=== PATIENT | male | born 1960 | race Caucasian/White ===

== ENCOUNTER 2020-08-19 07:09 | Outpatient (REF) | payer OTHER, SELFPAY ==
[2020-08-19 07:41] LABS: Basophils Absolute Auto 0.1 X10*3/uL (0.0-0.2); Basophils Percent Auto 0.9 % (0-2); Eosinophils Absolute Auto 0.3 X10*3/uL (0.0-0.4); Hematocrit 33.7 % (42-52); Imm Gran Abs Auto 0.02 X10*3/uL (0.00-0.03); Imm Gran Pct Auto 0.3 % (0.0-0.4); Immature Retic Fraction 17.5 % (2.3-13.4); Lymphocytes Absolute Auto 1.7 X10*3/uL (1.2-4.9); Lymphocytes Percent Auto 23.5 % (20-40); MANUAL DIFF FLAG SCAN; Mean Corpuscular HGB Conc 29.7 g/dl (31.0-36.0); Mean Corpuscular Volume 91.1 fL (80-98); Monocytes Absolute Auto 0.7 X10*3/uL (0.1-1.2); Monocytes Percent Auto 9.4 % (2-11); Neutrophils Absolute Auto 4.3 X10*3/uL (2.0-8.3); Neutrophils Percent Auto 61.9 % (45-73); Platelet Count 330 X10*3/uL (160-400); Red Cell Distribution Width 16.2 % (11.0-16.0); Retic HGB Equivalent 25.8 pg (30.0-35.0); Reticulocyte Percent 1.2 % (0.5-1.8); Reticulocytes Absolute 0.044 X10*6/uL (0.026-0.095); SCAN SMEAR FLAG 1
[2020-08-19 08:05] LABS: Iron 31 mcg/dL (45-160); Percent Iron Saturation 7 % (15-50); Total Iron Binding Capacity 465 mcg/dL (228-428); Unsaturated Iron Binding 434 ug/dL
[2020-08-19 08:22] LABS: SLIDE REVIEW VERIFIED
[2020-08-19 08:25] LABS: Ferritin 12 ng/mL (20-250)
[2020-08-21 04:01] LABS: Folate 15.1 ng/mL (> or = 4.0); Vitamin B12 1057 pg/mL (200-900)
== END 2020-08-19 07:10 | disposition home or self-care (01) ==
LOC: HO.LAB 07:09
PROVIDERS: Visit Provider Internal Medicine
DX: D64.9 Anemia, unspecified (principal)
CPT/HCPCS: 36415; 82607; 82728; 82746; 83540; 85025; 85045

== ENCOUNTER 2021-07-10 09:29 | Outpatient (REF) | payer OTHER, SELFPAY ==
--- NOTE | ~2021-07-10 | XR_ITS ---
EXAMINATION: XR KNEE, LEFT CLINICAL INFORMATION: Sprain COMPARISON: None TECHNIQUE: Four views of the left knee. FINDINGS: Bone alignment is normal. No fracture or dislocation is seen. There is a be mild joint space narrowing at the medial femoral tibial joint. There is a small osteophyte at the patellofemoral joint. There is a small joint effusion. XR/XR knee LT 4V IMPRESSION: No fracture or dislocation. Mild degenerative changes.
[2021-07-10 11:36] LABS: MANUAL DIFF FLAG NO
[2021-07-10 11:49] LABS: Basophils Percent Auto 0.5 % (0-2); Eosinophils Absolute Auto 0.2 X10*3/uL (0.0-0.4); Hematocrit 40.7 % (42-52); Hemoglobin 13.2 g/dl (14.0-18.0); Imm Gran Abs Auto 0.02 X10*3/uL (0.00-0.03); Imm Gran Pct Auto 0.3 % (0.0-0.4); Immature Retic Fraction 18.6 % (2.3-13.4); Lymphocytes Absolute Auto 1.8 X10*3/uL (1.2-4.9); Lymphocytes Percent Auto 22.8 % (20-40); Mean Corpuscular HGB Conc 32.4 g/dl (31.0-36.0); Mean Corpuscular Hemoglobin 33.8 pg (27.0-33.0); Mean Corpuscular Volume 104.1 fL (80-98); Monocytes Absolute Auto 0.6 X10*3/uL (0.1-1.2); Monocytes Percent Auto 7.3 % (2-11); Neutrophils Absolute Auto 5.1 X10*3/uL (2.0-8.3); Neutrophils Percent Auto 66.1 % (45-73); Platelet Count 298 X10*3/uL (160-400); Red Blood Count 3.91 X10*6/uL (4.60-5.80); Red Cell Distribution Width 13.7 % (11.0-16.0); Retic HGB Equivalent 33.8 pg (30.0-35.0); Reticulocyte Percent 2.8 % (0.5-1.8); Reticulocytes Absolute 0.111 X10*6/uL (0.026-0.095); White Blood Count 7.7 X10*3/uL (4.8-10.8)
[2021-07-10 12:05] LABS: Alanine Aminotransferase 29 U/L (0-40); Albumin Level 4.2 g/dL (3.5-5.0); Alkaline Phosphatase 51 U/L (39-117); Anion Gap 13 (12-20); Aspartate Amino Transferase 29 U/L (5-37); Bilirubin Total 0.4 mg/dL (0.0-1.0); Blood Urea Nitrogen 22 mg/dL (9-16); Calcium 9.4 mg/dL (8.4-10.2); Carbon Dioxide 28 mmol/L (22-29); Chloride 103 mmol/L (96-108); Cholesterol 243 mg/dL; Estimated Glomerular Filt Rate > 60; Glucose Random 108 mg/dL (60-115); HDL Cholesterol 90 mg/dL; Iron 56 mcg/dL (45-160); LDL Cholesterol Calculated 144 mg/dl; Percent Iron Saturation 13 % (15-50); Potassium 4.7 mmol/L (3.3-5.1); Sodium 139 mmol/L (135-145); Total Iron Binding Capacity 431 mcg/dL (228-428); Total Protein 6.9 g/dL (6.5-8.0); Triglycerides 48 mg/dL; Unsaturated Iron Binding 375 ug/dL
[2021-07-10 12:26] LABS: Ferritin 25 ng/mL (20-250); Free T4 (Free Thyroxine) 0.75 ng/dL (0.71-1.85); Thyroid Stimulating Hormone 0.82 uIU/mL (0.32-4.0)
[2021-07-10 12:33] LABS: Estimated Average Glucose 103 mg/dL; Hemoglobin A1C 112.9797 umol/L; Hemoglobin A1c % 5.2 %
[2021-07-10 12:41] LABS: Folate 11.4 ng/mL (> or = 4.0); Vitamin B12 542 pg/mL (200-900)
== END 2021-07-10 09:30 | disposition home or self-care (01) ==
LOC: HO.HMGCX 09:29
PROVIDERS: PCP Internal Medicine; Visit Provider Internal Medicine
DX: S83.92XA Sprain of unspecified site of left knee, initial encounter (principal); D50.8 Other iron deficiency anemias; E78.00 Pure hypercholesterolemia, unspecified; I10 Essential (primary) hypertension
CPT/HCPCS: 36415; 73564; 80053; 80061; 82607; 82728; 82746; 83036; 83540; 84439; 84443; 85025; 85045

== ENCOUNTER 2021-08-14 05:51 | Emergency (ER) | payer OTHER, SELFPAY ==
--- NOTE | ~2021-08-14 | XR_ITS ---
EXAMINATION: XR KNEE, LEFT CLINICAL INFORMATION: Knee pain after twisting injury COMPARISON: None TECHNIQUE: Four views of the left knee. FINDINGS: Mild spurring identified. Mild medial knee joint narrowing seen. Patellofemoral and lateral knee compartments are maintained. No fracture, dislocation or joint effusion recognized. XR/XR knee LT 3V IMPRESSION: No acute bony pathology left knee. Mild degenerative changes.
[2021-08-14 05:56] VITALS: BP 146/81; PULSE 84; RESP 16; TEMP 37.2; O2SAT 100; BMI 33.9
[2021-08-14] MEDS: Ibuprofen 600 MG TABLET PO (07:04)
--- NOTE | 2021-08-14 07:05 | ED.EXTPRO ---
HPI - Extremity Problem General Chief complaint: Extremity Problem Stated complaint: L Knee Pain Time Seen by Provider: 08/14/21 06:56 Source: patient Mode of arrival: ambulatory Limitations: no limitations History of Present Illness HPI Narrative: 61-year-old male came in for evaluation of left knee pain. Patient was in hurry going to work, twisted his left knee, no fall, injury habit 5 days ago, patient was evaluated at urgent care and had x-ray reportedly was unremarkable, patient is already scheduled to see orthopedic in 3 days. Declined any others injuries. Related Data Home Medications Medication Instructions Recorded Confirmed albuterol sulfate 90 mcg/actuation 2 puff INHALATION Q4-6H PRN 08/17/20 07/24/21 aerosol inhaler (ProAir HFA) beclomethasone dipropionate 80 1 inh INHALATION BID 08/17/20 07/24/21 mcg/actuation HFA breath activated aerosol (Qvar RediHaler) cholecalciferol (vitamin D3) 1,250 1,250 mcg PO QWEEK 08/17/20 07/24/21 mcg (50,000 unit) capsule hydrocortisone 2.5 % topical cream 1 applic MD BID-QID PRN 08/17/20 07/24/21 with perineal applicator (Proctosol HC) Previous Rx's Medication Instructions Recorded ferrous sulfate 325 mg (65 mg 325 mg PO DAILY #30 tab 08/20/20 iron) tablet (Feosol) lisinopril 20 mg tablet 20 mg PO DAILY #90 tab 10/11/20 montelukast 10 mg tablet 10 mg PO BEDTIME #30 tab 11/13/20 ascorbic acid (vitamin C) 500 mg 500 mg PO DAILY #30 tab 01/18/21 tablet (Vitamin C) aspirin 81 mg chewable tablet 1 tab PO DAILY #90 tab 02/08/21 albuterol sulfate 2.5 mg INHALATION Q4-6H PRN #90 ml 03/02/21 nebulizer accessories (A.I.R.S #1 ea 03/02/21 Nebulizer Replacement) NEBULIZER #1 ea 04/09/21 sennosides 8.6 mg-docusate sodium 2 tab-cap PO BEDTIME PRN 30 Days 04/09/21 50 mg tablet (Senna-S) #60 tab diclofenac sodium 1 % topical gel 2 g TOPICAL QID 7 Days #100 g 07/24/21 (Arthritis Pain (diclofenac)) nabumetone 500 mg tablet 500 mg PO BID 7 Days #14 tab 07/24/21 ibuprofen 600 mg tablet 600 mg PO TID PRN #20 tab 08/14/21 Allergies Allergy/AdvReac Type Severity Reaction Status Date / Time No Known Allergies Allergy Verified 07/24/21 15:08 Review of Systems Review of Systems: All other systems are reviewed and are negative Constitutional: Reports as per HPI and Reports no additional constitutional complaints Eyes: Reports as per HPI and Reports no additional eye complaints Reports system reviewed and no additional complaints, except as documented Cardiovascular: Reports as per HPI and Reports no additional cardiovascular complaints Respiratory: Reports as per HPI and Reports no additional respiratory complaints Gastrointestinal: Reports as per HPI and Reports no additional gastrointestinal complaints Genitourinary: Reports no additional female genitourinary complaints Musculoskeletal: Reports no additional musculoskeletal complaints Skin/Breast: Reports system reviewed and no additional complaints, except as docu Psychiatric: Reports no additional psychiatric complaints Endocrine: Reports no additional endocrine complaints Hematologic/Lymphatic: Reports no additional hematologic/lymphatic complaints Allergic/Immunologic: Reports no additional allergic/immunologic complaints Reports system reviewed and no additional complaints, except as documented and Reports Abnormal speech present [facility] Past Medical History Medical History Asthma Brain aneurysm Hypercholesterolemia Hypertension Obesity (BMI 30-39.9) Tubular adenoma of colon Surgical History History of inguinal hernia repair Family History Family History Father Esophageal cancer Mother Diabetes Hypertension Stroke Maternal Uncle Throat cancer Social History Social History Housing: Apartment Alcohol intake: current Alcohol intake frequency: a few times a week Patient Tobacco Use Status: Current someday Tobacco user Cigarettes Per Day: 1 e-Cigarette/Vaping Use: Never Used Second Hand Smoke Exposure: Yes Advance Directives: No Advance Directives Information Provided: No service: No Current occupational status: employed Physical Exam Vital Signs: Vital Signs: Last Vital Signs Temp 99.0 F 08/14/21 05:56 Pulse 84 08/14/21 05:56 Resp 16 08/14/21 05:56 BP 146/81 H 08/14/21 05:56 Pulse Ox 100 08/14/21 05:56 Body Mass Index 33.9 Vital signs have been reviewed as appeared to be correct. Blood pressure normal. Heart rate normal. Respiration rate normal. Temperature normal. Oxygen saturation normal. Appearance: Alert. Oriented X3. No acute distress. Head: Normal external exam. Normocephalic. Atraumatic. No Panda signs noted. No raccoon eyes noted Eyes: PERRLA. EOMI. Conjunctiva and sclera normal. Eyelids normal. ENT: TM's Normal. Pharynx normal. Uvula midline. Moist mucous membranes. No trismus noted. No drooling noted. No muffled voice noted. Neck: Normal inspection. Neck supple. FROM. No adenopathy. Thyroid Normal. No meningeal signs. No neck mass noted. CVS: Normal heart rate and rhythm. Heart sound normal. No murmurs noted. Pulses normal throughout. Respiratory: No respiratory distress. Painless inspiration. Breath sounds normal. No wheezes/rales/rhonchi noted. Chest nontender. No accessory muscle usage noted or decreased air movement noted. Abdomen: Soft and nontender. Bowel sounds normal in all 4 quadrants. No distention noted. No organomegaly noted. No visible injury noted. Back: No CVA tenderness. Full range of motion noted. Skin: Skin warm and dry. Normal skin color. Normal skin turgor. No rashes/lesions/lacerations noted. Extremities: Left knee exam: No swelling, no redness, no hotness, limited range of motion due to pain, no ligamentous injury, neurovascularly intact distal and proximal to the left knee. Neuro: Oriented X 3. Cranial nerve exam: II-XII are grossly intact No motor deficit. No sensory deficit. Reflexes normal. Course Course Course Narrative: Left knee sprain. ice/wrist/knee immobilizer/NSAIDs/follow with orthopedic. MDM - Extremity (Nontraumatic) Imaging Data Left knee x-ray: Radiologist's impression: No acute pathology in the left knee. Discharge Plan Discharge Clinical Impression: Left knee sprain Patient Disposition: Home, Self-Care Instructions: Knee Sprain (ED) Prescriptions: New ibuprofen 600 mg tablet 600 mg PO TID PRN (Reason: pain) Qty: 20 RF: 0 No Action ferrous sulfate [Feosol] 325 mg (65 mg iron) tablet 325 mg PO DAILY Qty: 30 RF: 3 lisinopril 20 mg tablet 20 mg PO DAILY Qty: 90 RF: 3 montelukast 10 mg tablet 10 mg PO BEDTIME Qty: 30 RF: 6 ascorbic acid (vitamin C) [Vitamin C] 500 mg tablet 500 mg PO DAILY Qty: 30 RF: 5 aspirin 81 mg tablet,chewable 1 tab PO DAILY Qty: 90 RF: 3 hydrocortisone [Proctosol HC] 2.5 % cream with perineal applicator 1 applic MD BID-QID PRNRF: 0 cholecalciferol (vitamin D3) 1,250 mcg (50,000 unit) capsule 1,250 mcg PO QWEEK RF: 0 albuterol sulfate [ProAir HFA] 90 mcg/actuation HFA aerosol inhaler 2 puff inhalation Q4-6H PRNRF: 0 Qvar RediHaler 80 mcg/actuation HFA aerosol breath activated 1 inh inhalation BID RF: 0 (DME) NEBULIZER See Rx Instructions .Route .MEDSUPPLY Qty: 1 RF: 0 sennosides-docusate sodium [Senna-S] 8.6-50 mg tablet 2 tab-cap PO BEDTIME PRN (Reason: constipation) 30 Days Qty: 60 RF: 2 albuterol sulfate 2.5 mg /3 mL (0.083 %) solution for nebulization 2.5 mg inhalation Q4-6H PRN (Reason: bronchospasm) Qty: 90 RF: 3 (DME) A.I.R.S Nebulizer Replacement Kit See Rx Instructions .ROUTE .MEDSUPPLY Qty: 1 RF: 0 nabumetone 500 mg tablet 500 mg PO BID 7 Days Qty: 14 RF: 0 diclofenac sodium [Arthritis Pain (diclofenac)] 1 % gel 2 g topical QID 7 Days Qty: 100 RF: 0 Referrals: Bello Fregoso MD [Physician] - 2 days Stand Alone Forms: Work/School Release
== END 2021-08-14 09:24 | disposition home or self-care (01) ==
PROVIDERS: Emergency Provider Emergency Medicine; PCP Internal Medicine
DX: S83.92XA Sprain of unspecified site of left knee, initial encounter (principal); X50.1XXA Overexertion from prolonged static or awkward postures, initial encounter; Y93.89 Activity, other specified; Y92.009 Unspecified place in unspecified non-institutional (private) residence as the place of occurrence of the external cause; Y99.9 Unspecified external cause status
CPT/HCPCS: 73562; 99283

== ENCOUNTER 2021-08-17 04:59 | Outpatient (REF) | payer OTHER, SELFPAY ==
--- NOTE | ~2021-08-17 | XR_ITS ---
EXAMINATION: LEFT KNEE X-RAY CLINICAL INFORMATION: Pain COMPARISON: Previous left knee x-ray 08/14/2021 TECHNIQUE: Single sunrise view of the left knee FINDINGS: The patellofemoral joint is normal. No fracture or dislocation. XR/XR knee LT 1V IMPRESSION: Normal sunrise view of the left knee.
== END 2021-08-17 05:00 | disposition home or self-care (01) ==
LOC: HO.HOSX 04:59
PROVIDERS: Visit Provider Physician Assistant
DX: M17.12 Unilateral primary osteoarthritis, left knee (principal); S86.912A Strain of unspecified muscle(s) and tendon(s) at lower leg level, left leg, initial encounter
CPT/HCPCS: 20610; 73560; J1040

== ENCOUNTER 2021-09-28 15:00 | Outpatient (RCR) | payer OTHER, SELFPAY ==
--- NOTE | 2021-09-05 15:55 | MHC.PT.EP ---
[facility] [place] Office [place] Office [place] Office [address] Tammie De Los Santos [address] [phone] F: [phone] F: [phone] F: [phone] F: [phone] Physical Therapy Plan of Care Date of Evaluation: Date of Surgery: n/a Diagnosis: pain in L knee Assessment: Patient is a 61 year old male presenting to PT with complaints of pain in his L knee. Pt reports onset of pain began about 1 month ago due to rushing when getting out of bed and then noticing pain. He presents today with impairments in pain, ROM, knee strength, and hip strength. 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 Pt expresses behavioral services tech goal of feeling better, and is motivated to work towards this in PT. Clinical presentation today is most consistent with signs and sx associated with possible L knee sprain and pt will benefit from skilled PT to address the following problems and impairments noted upon evaluation: pain, ROM, knee strength, and hip strength. These problems limit the patient with the following functional activities: ambulation, stair negotiation, and work. The prescribed treatment plan of care is medically necessary. Co-morbidities of HTN and hx brain aneurysm were identified and taken into considerations of plan of care. Pt was educated on HEP, role of PT, prognosis, POC. Frequency and Duration: The patient will be seen 2 x week x 4 weeks Short Term Goals: Pt will demonstrate improved L knee ROM to equal B in 2 weeks. Pt will demonstrate pain at rest <2/10 in 2 weeks for improved QOL. Pt will demonstrate improved hip strength by 1/3 MMT for improved lumbopelvic stability in 2 weeks. Pt will demonstrate improved knee strength to 5/5 in 2 weeks. Group Home Goals: Pt will demonstrate ability to ambulate community distances with min to no pain in 4 weeks for improved access to the community. Pt will demonstrate ability to negotiate stairs with min to no discomfort in 4 weeks for improved access to his home. Pt will demonstrate improved LEFI score by 9 points in 4 weeks for improved LE functional mobility. Treatment Plan: Modalities to reduce pain, spasms and effusion. Manual therapy to restore motion and function. Therapeutic exercise to improve strength and flexibility. Neuromuscular re-education for posture and balance. Therapeutic activities to return to functional activities of daily living. Electronically signed by: Becca Yeung, PT, DPT, ATC Please sign and return to therapist. Thank you for your referral.
--- NOTE | 2021-10-04 15:45 | MHC.PT.DC ---
[facility] [place] Office [place] Office [place] Office [address] De Los [address] 140 [facility] [phone] F: [phone] F: [phone] F: [phone] F: [phone] Physical Therapy Discharge Report Diagnosis: pain in L knee Date of Surgery: n/a Date of Evaluation: 09/05/21 Date of Discharge: 10/04/21 Treatments to Date: 5 Cancellations to Date: 1 No Shows to Date: 1 Discharge Status: Patient Elected to Stop Discharge Summary: Pt self d/c from skilled PT. Electronically signed by: Becca Yeung, PT, DPT, ATC Please sign and return to therapist. Thank you for your referral.
== END 2021-10-04 15:45 | disposition home or self-care (01) ==
LOC: HO.PT 15:00
PROVIDERS: PCP Internal Medicine; Visit Provider Nurse Practitioner Family
DX: M25.562 Pain in left knee (principal)
CPT/HCPCS: 97110; 97112; 97161; 97530

== ENCOUNTER 2021-10-24 07:57 | Outpatient (REF) | payer OTHER, SELFPAY ==
--- NOTE | ~2021-10-24 | XR_ITS ---
EXAMINATION: PRE-MRI SCREENING CLINICAL INFORMATION: History of aneurysm coiling COMPARISON: None TECHNIQUE: 2 views of the skull. FINDINGS: There are multiple coils seen midline anterior to the suprasellar region likely from ACOM aneurysm coiling. No additional radiopaque foreign body seen. The paranasal sinuses and mastoid air cells are well aerated. No scalp soft tissue swelling. XR/XR pre mri screening IMPRESSION: Midline ACOM aneurysm coils are visualized. No additional radiopaque foreign body seen.
== END 2021-10-24 07:58 | disposition home or self-care (01) ==
LOC: HO.MRI 07:57
PROVIDERS: PCP Internal Medicine; Visit Provider Physician Assistant
DX: Z13.89 Encounter for screening for other disorder (principal)

== ENCOUNTER 2021-10-25 18:55 | Outpatient (REF) | payer OTHER, SELFPAY ==
--- NOTE | ~2021-10-25 | MR_ITS ---
EXAMINATION: MR KNEE WITHOUT CONTRAST, LEFT CLINICAL INFORMATION: Left knee pain. Osteoarthritis. COMPARISON: Most recent left knee radiographs dated 08/14/2021. TECHNIQUE: MRI of the knee without contrast was performed using routine sequences on a high-field scanner. FINDINGS: MENISCI: Medial Meniscus: Near-complete radial tear of the posterior horn/root junction measuring up to 0.9 cm in ML dimension. The meniscal body is medially extruded with degenerative intrasubstance signal. Lateral Meniscus: Inner margin fraying of the posterior horn and root. LIGAMENTS: Cruciate: Intact Collateral: Intact EXTENSOR MECHANISM: Intact ARTICULAR CARTILAGE/BONE: Patellofemoral Compartment: Superior patellar median ridge articular cartilage signal heterogeneity. Articular cartilage thinning with areas of full-thickness loss and subchondral cystic change as well as signal heterogeneity and surface irregularity involving the majority of the medial trochlea extending through the central trochlea and to the central aspect of the lateral trochlea. Marginal osteophytes. Medial Compartment: Full-thickness weightbearing medial femoral condyle and medial tibial plateau articular cartilage loss with mild underlying subchondral cystic change and marrow edema. Marginal osteophytes. Lateral Compartment: Normal JOINT FLUID AND BURSAE: Small joint effusion and small Castanon's cyst. Mild synovitis. MR/MR knee LT wo con IMPRESSION: 1. Near-complete radial tear of the medial meniscus posterior horn/root junction measuring 0.9 cm in ML dimension. Medial extrusion of the meniscal body with degenerative intrasubstance signal. 2. Inner margin fraying of the lateral meniscus posterior horn and root. 3. Moderate patellofemoral and medial compartment osteoarthritis. Small joint effusion and small Castanon's cyst with mild synovitis.
== END 2021-10-25 18:56 | disposition home or self-care (01) ==
LOC: HO.MRI 18:55
PROVIDERS: Visit Provider Physician Assistant
DX: M17.12 Unilateral primary osteoarthritis, left knee (principal); M25.562 Pain in left knee; M25.462 Effusion, left knee
CPT/HCPCS: 73721

== ENCOUNTER → 2021-11-01 14:37 | Outpatient (BNVA) | payer OTHER, SELFPAY | PROVIDERS: PCP Internal Medicine; Visit Provider Physician Assistant ==

== ENCOUNTER → 2022-01-04 11:40 | Outpatient (BNVA) | payer OTHER, SELFPAY | PROVIDERS: Visit Provider Physician Assistant | DX: Z13.89 Encounter for screening for other disorder (principal) ==

== ENCOUNTER 2022-01-09 12:54 | Day surgery (SDC) | payer OTHER, SELFPAY ==
--- NOTE | 2022-01-08 09:15 | P.CONAN_ITS ---
Documented by User: Kassi Horvath NP 01/08/22 09:16 HPI - Anesthesia Eval Consult details Narrative: 61yo M for Left Knee Arthroscopy Subchondroplasty,poss meniscus repair,poss menisectomy PMFSH Active Problems Active Problems: All Active Problems (Updated 01/04/22 @ 10:00 by Amrita Liz RN) Rectal bleeding (Acute) Anemia (Acute) Lower leg laceration with complication (Acute) Constipation (Acute) Vision changes (Acute) Somatic dysfunction of right sacroiliac joint (Acute) Rash (Acute) Sprain of left knee (Acute) Left knee pain (Acute) Patellofemoral arthritis of left knee (Acute) Strain of left knee (Acute) Lateral meniscus tear (Acute) Tear of meniscus of left knee (Acute) Osteoarthritis of left knee (Acute) Hypertension (Acute) Hypercholesterolemia (Acute) Obesity (BMI 30-39.9) (Acute) Asthma (Acute) Past Medical History Medical History Asthma Brain aneurysm History of diverticulosis Hypercholesterolemia Hypertension Obesity (BMI 30-39.9) Osteoarthritis of left knee Seasonal allergies Tubular adenoma of colon Family History Family History Father Esophageal cancer Mother Diabetes Hypertension Stroke Maternal Uncle Throat cancer Surgical History Surgical History History of inguinal hernia repair Hx of brain surgery Hx of colonoscopy Social History Social History (Updated 08/17/21 @ 08:13 by Nino Butler) Housing: Apartment Alcohol intake: current Alcohol intake frequency: a few times a week Patient Tobacco Use Status: Current someday Tobacco user Tobacco use type: Cigarette Cigarettes Per Day: 1 e-Cigarette/Vaping Use: Never Used Second Hand Smoke Exposure: Yes Use of substances other than those prescribed or required for medical reasons: No Are you DNR?: No Advance Directives: No Advance Directives Information Provided: Yes Recently lost weight without trying: No service: No Current occupational status: employed Current occupation: rt handed Meds Allergies Allergy/AdvReac Type Severity Reaction Status Date / Time No Known Allergies Allergy Verified 01/04/22 09:55 Home Medications Medication Instructions Recorded Confirmed Last Taken Type albuterol sulfate 90 mcg/actuation 2 puff INHALATION Q4-6H PRN 08/17/20 01/04/22 Unknown History aerosol inhaler (ProAir HFA) beclomethasone dipropionate 80 1 inh INHALATION BID 08/17/20 01/04/22 Unknown History mcg/actuation HFA breath activated aerosol (Qvar RediHaler) cholecalciferol (vitamin D3) 1,250 1,250 mcg PO QWEEK 08/17/20 01/04/22 Unknown History mcg (50,000 unit) capsule hydrocortisone 2.5 % topical cream 1 applic [place] BID-QID PRN 08/17/20 01/04/22 Unknown History with perineal applicator (Proctosol HC) Exam Exam Date and Time: January 08, 2022914 Pertinent Lab Results Pertinent Lab Results: Laboratory Tests 07/10/21 07/10/21 09:34 09:34 WBC 7.7 Hgb 13.2 L D Hct 40.7 L D Plt Count 298 Sodium 139 Potassium 4.7 Chloride 103 Carbon Dioxide 28 BUN 22 H Creatinine 0.88 Assessment and Plan Assessment Anesthesia Assessment: Chart Reviewed Documented by User: Balbir Mack MD 01/09/22 17:09 HPI - Anesthesia Eval Consult details Narrative: 61yo M for Left Knee Arthroscopy Subchondroplasty,poss meniscus repair,poss menisectomy brain aneurysm s/p coil and stent . Nurosurgeon on board [facility] Past Medical History Medical History Asthma Brain aneurysm History of diverticulosis Hypercholesterolemia Hypertension Obesity (BMI 30-39.9) Osteoarthritis of left knee Seasonal allergies Tubular adenoma of colon Family History Family History Father Esophageal cancer Mother Diabetes Hypertension Stroke Maternal Uncle Throat cancer Family history of problems with anesthesia: No Surgical History Surgical History History of inguinal hernia repair Hx of brain surgery Hx of colonoscopy History of Problems with Anesthesia: No Social History Social History (Updated 08/17/21 @ 08:13 by Nino Butler) Housing: Apartment Alcohol intake: current Alcohol intake frequency: a few times a week Patient Tobacco Use Status: Current someday Tobacco user Tobacco use type: Cigarette Cigarettes Per Day: 1 e-Cigarette/Vaping Use: Never Used Second Hand Smoke Exposure: Yes Use of substances other than those prescribed or required for medical reasons: No Are you DNR?: No Advance Directives: No Advance Directives Information Provided: Yes Recently lost weight without trying: No service: No Current occupational status: employed Current occupation: rt handed Meds Allergies Allergy/AdvReac Type Severity Reaction Status Date / Time No Known Allergies Allergy Verified 01/04/22 09:55 Home Medications Medication Instructions Recorded Confirmed Last Taken Type albuterol sulfate 90 mcg/actuation 2 puff INHALATION Q4-6H PRN 08/17/20 01/04/22 Unknown History aerosol inhaler (ProAir HFA) beclomethasone dipropionate 80 1 inh INHALATION BID 08/17/20 01/04/22 Unknown History mcg/actuation HFA breath activated aerosol (Qvar RediHaler) cholecalciferol (vitamin D3) 1,250 1,250 mcg PO QWEEK 08/17/20 01/04/22 Unknown History mcg (50,000 unit) capsule hydrocortisone 2.5 % topical cream 1 applic [place] BID-QID PRN 08/17/20 01/04/22 Unknown History with perineal applicator (Proctosol HC) Exam Airway Mallampati Class: II TM Dist: >3cm Neck ROM: Full Loose/Missing/Broken Teeth: Yes Heart: rrr Lungs: bl breath sounds Assessment and Plan Assessment Anesthesia Assessment: Anesthesia Plan Discussed Final Anesthetic Review Family History of Problems with Anesthesia: No History of Problems with Anesthesia: No NPO: Yes ASA Class: III Final Preanesthetic Review: Meds/Allgs Chart Reviewed, Consent Obtained/Reviewed and Anes Risks/Benef Reviewed Patient Risk: Intermediate Procedure Risk: Intermediate Anesthetic Plan Anesthetic Plan: GA Disposition: Standard PACU
[2022-01-09] VITALS (11 sets, daily range): BP systolic 145–171; BP diastolic 77–91; PULSE 73–102; RESP 15–18; TEMP 36.3–36.6; O2SAT 95–98; BMI 32.8
--- NOTE | ~2022-01-09 | FL_ITS ---
EXAMINATION: XR FLUOROSCOPY WITH IMAGES CLINICAL INFORMATION: Sub chondroplasty left knee. COMPARISON: MR left knee dated from 10/25/2021. TECHNIQUE: Fluoroscopy performed by Dr. Zenobia Monsalve. Fluoroscopy time: 0.4 minutes DAP: 0.0387 mGycm2 Images: 2 FL/FL guidance in OR FINDINGS/IMPRESSION: Intraoperative fluoroscopic images demonstrating 2 obliquely oriented surgical instruments/objects. Please refer to intraoperative report for additional details.
[2022-01-09] MEDS: Lactated Ringers 1,000 ML 100 ML IVCONT (14:31)
--- NOTE | 2022-01-09 16:10 | MHC.SHP ---
Pre-Procedural Eval Section A Date of Service: 01/09/22 The patient is an INPATIENT: No Changes since office visit: Yes Patient answered all questions; No Cold of Flu in the past 2 weeks, No New Medical Problems and No Changes in Medication The History & Physical has been completed within 30 days and I have reviewed it.: Yes Section B Chief Complaint: sprain of left knee Allergies: Allergies Allergy/AdvReac Type Severity Reaction Status Date / Time No Known Allergies Allergy Verified 01/04/22 09:55 Plan I have reviewed the history and physical and performed a pertinent physical examination on my patient. No changes have occurred unless specified.
--- NOTE | 2022-01-09 17:22 | P.BOP_ITS ---
Brief Operative Note Date of Service: 01/09/22 Pre-op diagnosis: left knee OA Left knee medial meniscus tear Left knee subchondral insufficiency fracture Post-op diagnosis: same Procedure: Internal fixation left femur knee As with partial medial meniscectomy and chondroplasty Implants: 2 ml subchondroplasty bone filler Surgeon: Bello Fregoso MD Anesthesia: GETA Was an Commercial Photographer used for this Procedure?: Yes Commercial Photographer: Kamini Lugo Estimated blood loss (mL): 10 IV fluids (mL): 1,000 Pathology: none sent Condition: stable Disposition: PACU
[2022-01-09] MEDS: fentaNYL citrate/PF 100 MCG/2 ML VIAL 25 MCG IVPUSH ×4 (17:35→18:05)
--- NOTE | 2022-01-15 15:53 | W.PM.OPN ---
Operative Note Operative Note Date of Service: 01/09/22 Narrative: [address] [address] Brief Operative Note Signed Patient: Bernardo Espitia MR#: [id number] : 1960 Acct:[id number] Pre-op diagnosis: left knee OA Left knee medial meniscus tear Left knee subchondral insufficiency fracture Post-op diagnosis: same Procedure: Internal fixation left femur knee As with partial medial meniscectomy and chondroplasty Implants: 2 ml subchondroplasty bone filler Surgeon: Bello Fregoso MD Anesthesia: GETA Was an Family Nurse Practitioner used for this Procedure?: Yes Family Nurse Practitioner: Kamini Lugo Estimated blood loss (mL): 10 IV fluids (mL): 1,000 Pathology: none sent Condition: stable Disposition: PACU Procedure in detail: Patient was brought to the operating room placed supine on the arthroscopic table and prepped and draped in standard sterile fashion. A time-out was called to identify proper site proper procedure proper surgeon and IV antibiotics per weight were administered. I began by exsanguinating the limb and insufflating tourniquet to 300 mm Hg. Then made a standard anterolateral stab incision. The knee was insufflated with water and 30 degree arthroscope was placed. There was grade 1 fibrillations of the patella and a central g4 lesion of the trochlea. The suprapatellar pouch was clean and the gutters were clean. I descended into the medial compartment where I made my medial portal under direct visualization. There was a complex medial meniscus tear. There was also scattered G 4 changes of the femoral condyle and a large G 4 lesion of the medial aspect of the medial femoral condyle. The root was intact. I used a combination of biter shaver and cautery to remove unstable portions of the meniscus. Approximately 35% of the meniscal volume was removed. Once I was satisfied with this the ACL was examined and found to be intact and the lateral compartment also was without the need for intervention. I then made a medial supra-patellar portal and inserted the insertion trochar into the MFC. Using biplanar fluro and the MRI to localize the insertion cannula into the insufficiency fracture. The Subchondroplasty was mixed on the back table and then 2 ml was injected into the MFC. There was no intra-articular extravasation. Once the subchondroplasty filler was hard all instrumentation was removed. Skin glue was used to close the portals. 25 mL of 2% Marcaine with epinephrine was injected into the joint and the surrounding soft tissues. Patient was then placed in sterile dressing extubated brought recovery room stable condition. There were no known complications.
== END 2022-01-09 18:30 | disposition home or self-care (01) ==
LOC: HO.SSS 12:54
PROVIDERS: PCP Internal Medicine; Visit Provider Orthopaedic Surgery
PROC: (CPT 29881; principal; 2022-01-09 15:00)
DX: S83.232A Complex tear of medial meniscus, current injury, left knee, initial encounter (principal); M84.452A Pathological fracture, left femur, initial encounter for fracture; M17.12 Unilateral primary osteoarthritis, left knee; X58.XXXA Exposure to other specified factors, initial encounter; Y93.9 Activity, unspecified; Y92.9 Unspecified place or not applicable; Y99.8 Other external cause status; J45.909 Unspecified asthma, uncomplicated; I10 Essential (primary) hypertension; Z86.79 Personal history of other diseases of the circulatory system; Z79.899 Other long term (current) drug therapy; F17.210 Nicotine dependence, cigarettes, uncomplicated
CPT/HCPCS: 29881; 27599; C1713; J0171; J0690; J1100; J1170; J1885; J2250; J2405; J3010

== ENCOUNTER → 2022-01-14 08:54 | Outpatient (BNVA) | payer OTHER, SELFPAY | PROVIDERS: Visit Provider Physician Assistant | DX: M17.12 Unilateral primary osteoarthritis, left knee (principal); Z47.89 Encounter for other orthopedic aftercare ==

== ENCOUNTER → 2022-02-11 08:29 | Outpatient (BNVA) | payer OTHER, SELFPAY | PROVIDERS: Visit Provider Physician Assistant | DX: Z13.89 Encounter for screening for other disorder (principal) ==

== ENCOUNTER → 2022-03-08 12:19 | Outpatient (BNVA) | payer OTHER, SELFPAY | PROVIDERS: Visit Provider Physician Assistant | DX: M17.12 Unilateral primary osteoarthritis, left knee (principal) ==

== ENCOUNTER 2022-03-12 09:00 | Outpatient (RCR) | payer OTHER, SELFPAY ==
--- NOTE | 2022-01-14 15:44 | MHC.PT.EP ---
[facility] [place] Office [place] Office [place] Office [address] Tammie De Los Santos [address] [phone] F: [phone] F: [phone] F: [phone] F: [phone] Physical Therapy Plan of Care Date of Evaluation: Date of Surgery: 01/09/22 Diagnosis: 01/09/22 LEFT KNEE As with partial medial meniscectomy and chondroplasty Assessment: 61 YO MALE REF TO PT S/P LEFT PARTIAL MEDIAL MENISCECTOMY AND CHONDROPLASTY ON 01/09/22. 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 HE RESIDES ALONE AND HAS BEEN CLEARED FOR WBAT LEFT W A CANE. Pt HAS DECR ROM IN LEFT KNEE, DECR FLEXIB IN LEFT HIP, ALTERED GAIT MECH, POST-OP SWELLING AND INCISIONAL HEALING, AND GENERAL THROBBING PAIN IN LEFT KNEE. HE HAS COMPENSATORY UEs OVERUSE W TRANSFERS AND W GAIT HE HAS DECR STANCE PHASE Lt LE AND POSTURES INTO HIP ER. Pt IS MOTIVATED FOR PT AND RTW- HE IS A VERY GOOD PT CANDIDATE. Frequency and Duration: The patient will be seen 2 x WK x 8 WKS Short Term Goals: *Pt'S LEFT KNEE PAIN DECR TO 2-3/10 AND EDEMA RESOLVED IN 2 WKS *Pt IMPROVE ROM Lt KNEE , PER PROTOCOL, GRAD TO 0*-125* BY 4 WKS *Pt DEMON WFL GAIT MECH ON LEVEL GROUND AND STAIRS IN 4 WKS Halfway Goals: Pt INDEP W HEP PROGRESSION AND SELF-SX MGMT STRATEGIES IN 8 WKS Pt RESUME REG ADLs , WORK SIMUL ALLOWED BY PROTOCOL , AND, EVIDENT W IMPROVED LEFI SCORE BY 10-15 POINTS (AT EVAL 17/80 ) IN 8 WKS Pt INCR LEFT LE AND LUMBOPELVIC STRENGTH BY 1 GRADE IN 8 WKS Treatment Plan: Modalities to reduce pain, spasms and effusion. Manual therapy to restore motion and function. Therapeutic exercise to improve strength and flexibility. Neuromuscular re-education for posture and balance. Therapeutic activities to return to functional activities of daily living. Electronically signed by: Cinthya Bryant PT Please sign and return to therapist. Thank you for your referral.
--- NOTE | 2022-04-03 10:06 | MHC.PT.DC ---
[facility] [place] Office [place] Office [place] Office [address] Tammie De Los Santos [address] [phone] F: [phone] F: [phone] F: [phone] F: [phone] Physical Therapy Discharge Report Diagnosis: 01/09/22 LEFT KNEE As with partial medial meniscectomy and chondroplasty Date of Surgery: 01/09/22 Date of Evaluation: 01/14/22 Date of Discharge: 04/03/22 Treatments to Date: 11 Cancellations to Date: 2 No Shows to Date: 3 Discharge Status: Improved Function Independent with HEP Patient Elected to Stop Visit Non-compliance Discharge Summary: Pt WAS PROGRESSING IN PT, HE HAD EXACERBATED HIS KNEE, BUT IN PT WE WERE ABLE TO EASE IRRITATION AND REFOCUS HEP. Pt HAS A PROGRESSIVE HEP, HIS LEFT KNEE AROM IS WFL, GAIT MECH MORE EFFICIENT ON LEVEL AND STAIRS. PT HAS NOT ATTENDED LAST FEW SCED PT APPTS DESPITE REMINDERS, THEREFORE, A FINAL REASSESSMENT WAS NOT PERFORMED. Electronically signed by: Cinthya Bryant,PT Please sign and return to therapist. Thank you for your referral.
== END 2022-04-03 10:07 | disposition home or self-care (01) ==
LOC: HO.PT 09:00
PROVIDERS: Visit Provider Physician Assistant
DX: M25.562 Pain in left knee (principal)
CPT/HCPCS: 97014; 97110; 97112; 97140; 97162; 97530

== ENCOUNTER → 2022-07-22 14:44 | Outpatient (BNVA) | payer OTHER, SELFPAY | PROVIDERS: Visit Provider Orthopaedic Surgery | DX: M17.12 Unilateral primary osteoarthritis, left knee (principal); R73.02 Impaired glucose tolerance (oral) | CPT/HCPCS: 20610 ==

== ENCOUNTER → 2022-10-28 14:48 | Outpatient (BNVA) | payer OTHER, SELFPAY | PROVIDERS: Visit Provider Orthopaedic Surgery | DX: Z13.89 Encounter for screening for other disorder (principal) ==

== ENCOUNTER 2023-07-20 19:17 | Inpatient (IN) | payer OTHER, SELFPAY ==
--- NOTE | ~2023-07-20 | CT_ITS ---
EXAMINATION: CT ABDOMEN AND PELVIS WITHOUT AND WITH CONTRAST CLINICAL INFORMATION: GI bleed COMPARISON: None. TECHNIQUE: Multidetector volumetric CT imaging of the abdomen, and pelvis was performed before and after the administration of 100 mL of Omnipaque 300 intravenous contrast without immediate adverse reactions. Axial MIP volume rendering provided. Sagittal and coronal reformatted images were obtained. This CT examination was performed using dose optimization techniques as appropriate, variously including the following: *Automated exposure control *Adjustment of mA and/or kV according to patient size (this includes techniques or standardized protocols for targeted exams where dose is matched to indication/reason for exam; i.e. extremities or head) *Use of iterative reconstruction technique DLP: 1654 mGy-cm. FINDINGS: LUNGS BASES: The lungs are clear with no evidence of inflammation or nodules. LIVER, GALLBLADDER, AND BILIARY TREE: The liver is normal in size, shape, and attenuation. No focal hepatic lesion or biliary ductal dilatation is present. Dependent intraluminal gallbladder calculus without wall thickening or pericholecystic fluid. PANCREAS: Unremarkable. SPLEEN: Unremarkable. 0.3 cm splenule. ADRENAL GLANDS: Unremarkable. KIDNEYS AND URETERS: Subcentimeter hypodense focus along the right renal interpolar region, too small to characterize though statistically representing a cyst. The kidneys are normal in size, shape, and attenuation. No hydronephrosis, hydroureter, or calculi seen. No perinephric stranding. BLADDER: Unremarkable. GASTROINTESTINAL TRACT: Respiratory motion artifact slightly limits evaluation of the bowel. Colonic diverticulosis without acute diverticulitis. The small and large bowel are unremarkable. The appendix is unremarkable. ABDOMINAL WALL: Small fat filled bilateral inguinal hernias. LYMPH NODES: Normal. VASCULAR: No evidence of contrast extravasation to suggest active hemorrhage. Abdominal aorta is nonaneurysmal. Atherosclerotic calcifications abdominal aorta and its branches. PELVIC VISCERA: Prostate is enlarged measuring 4.9 x 4.3 cm with mass effect upon the urinary bladder base. OSSEOUS STRUCTURES: Multilevel degenerative changes of the thoracolumbar spine. Prominent degenerative arthropathy of the right sacroiliac joint. CT/CT gi bleed abd pel wo/w IVcon IMPRESSION: 1. No evidence of contrast extravasation to suggest active hemorrhage though evaluation is slightly limited secondary to respiratory motion artifact on the gastrointestinal tract during arterial phase. 2. Cholelithiasis without acute cholecystitis. 3. Subcentimeter hypodense focus along the right renal interpolar region, too small to characterize though statistically representing a cyst. 4. Colonic diverticulosis without acute diverticulitis. 5. Small fat filled bilateral inguinal hernias. 6. Prostate is enlarged measuring 4.9 x 4.3 cm with mass effect upon the urinary bladder base.
--- NOTE | ~2023-07-20 | NM_ITS ---
RADIONUCLIDE GASTROINTESTINAL BLEEDING STUDY CLINICAL INDICATION: Rectal bleeding, anemia, question GI bleed. PROCEDURE: Following the bolus intravenous administration of 25 millicuries technetium 99m labeled autologous red blood cells, rapid sequence dynamic gamma scintillation camera images were obtained over the abdomen and pelvis for an initial observation interval of 2 minutes. Subsequent sequential static images were then obtained up to 60 minutes post injection. FINDINGS: Initial rapid sequence flow images there is visualization of activity neck curvilinear distribution laterally in the left midabdomen that visualizes simultaneously with visualization of the aorta and common iliac arteries and persists through the flow study. Subsequent sequential static images continue to show this a curvilinear focus but this gradually decreases in intensity but does not change significantly in distribution. No foci of changing activity are visualized throughout the study. The CT scan dated 07/20/2023 shows a loop of small bowel that corresponds in shape and position to the region in the lateral left mid abdomen that showed some increased flow. NM/NM GI bleeding IMPRESSION: No gastrointestinal hemorrhage is identified. A hyperemic loop of small bowel is likely responsible for activity initially visualized during the flow images which persisted but gradually faded without changing distribution throughout the remainder of the study.
--- NOTE | 2023-07-20 19:24 | ECG_ITS ---
Test Reason : WEAKNESS Blood Pressure : / mmHG Vent. Rate : 077 BPM Atrial Rate : 077 BPM P-R Int : 160 ms QRS Dur : 074 ms QT Int : 380 ms P-R-T Axes : 011 -01 036 degrees QTc Int : 430 ms Normal sinus rhythm Nonspecific T wave abnormality Abnormal ECG When compared with ECG of 21-JUN-2020 20:22, No significant change was found Referred By: Devorah Keating Electronically Signed By:NEEL MARX
[2023-07-20 19:28] VITALS: BP 108/68; BP 98/58; PULSE 87; PULSE 93; RESP 18; TEMP 36.4; O2SAT 18; O2SAT 98; BMI 32.0
--- NOTE | 2023-07-20 19:32 | ED_ITS ---
HPI - GI Bleed General Chief complaint: Weakness Stated complaint: bleeding from rectal area after diarrhea, weak Source: patient and old records reviewed Mode of arrival: EMS Limitations: no limitations History of Present Illness HPI Narrative: 62 yo male with PMH of HTN, HLD, brain aneurysm s/p coil, prior lower GIB 4 years ago at [facility] that required cauterization here with c/o brb with clots in toilet starting around 430/5pm tonight. He feels weak and dizzy and cannot walk. He has no pain. He takes only aspirin no thinners. complaint: gross hematochezia Onset (ago): hour(s) (430pm) Severity: moderate Relieving factors: none Exacerbating factors: bowel movement Context: history of GI bleed Associated symptoms: malaise and weakness Treatments Prior to Arrival: none Related Data Home Medications Medication Instructions Recorded Confirmed albuterol sulfate 90 mcg/actuation 2 puff inhalation Q4-6H PRN 08/17/20 01/04/22 aerosol inhaler (ProAir HFA) Wheezing beclomethasone dipropionate 80 1 inh inhalation BID 08/17/20 01/04/22 mcg/actuation HFA breath activated aerosol (Qvar RediHaler) cholecalciferol (vitamin D3) 1,250 1,250 mcg PO QWEEK 08/17/20 01/04/22 mcg (50,000 unit) capsule hydrocortisone 2.5 % topical cream 1 applic AK BID-QID PRN as directed 08/17/20 01/04/22 with perineal applicator (Proctosol HC) Previous Rx's Medication Instructions Recorded ferrous sulfate 325 mg (65 mg 325 mg PO DAILY #30 tabs 08/20/20 iron) tablet (Feosol) ascorbic acid (vitamin C) 500 mg 500 mg PO DAILY #30 tabs 01/18/21 tablet (Vitamin C) albuterol sulfate 2.5 mg/3 mL 2.5 mg (3 mL) inhalation Q4-6H PRN 03/02/21 (0.083 %) solution for nebulization bronchospasm #90 mL nebulizer accessories (A.I.R.S #1 ea 03/02/21 Nebulizer Replacement kit) NEBULIZER #1 ea 04/09/21 sennosides 8.6 mg-docusate sodium 2 tab-cap (2 x 8.6-50 mg) PO 04/09/21 50 mg tablet (Senna-S) BEDTIME PRN constipation 30 days #60 tabs diclofenac sodium 1 % topical gel 2 g topical QID 7 days #100 grams 07/24/21 (Arthritis Pain (diclofenac)) [facility] Knee brace #1 ea 11/05/21 oxycodone-acetaminophen 5 mg-325 1 tab PO Q8H PRN pain (scale score 01/27/22 mg tablet (Percocet) 4-6) 7 days #21 tabs meloxicam 15 mg tablet 15 mg PO DAILY 30 days #30 tabs 02/11/22 aspirin 81 mg chewable tablet 1 tab PO DAILY #90 tabs 09/05/22 montelukast 10 mg tablet 10 mg PO BEDTIME #90 tabs 09/05/22 lisinopril 20 mg tablet 20 mg PO DAILY #90 tabs 02/14/23 Allergies Allergy/AdvReac Type Severity Reaction Status Date / Time No Known Allergies Allergy Verified 07/20/23 19:33 Review of Systems 2 Review of Systems: Constitutional : No Fever, No Chills, No Fatigue ENT/Mouth : No sore throat, No Rhinorrhea Eyes: No Eye Pain, No Swelling, No Redness Cardiovascular : No Chest Pain, No SOB, No Dyspnea on Exertion Respiratory : No Cough, No Sputum Gastrointestinal : No Nausea, No Vomiting, No Diarrhea, No abdominal Pain, pos hematochezia Genitourinary : No Dysuria, No Urinary Frequency, No Hematuria, Musculoskeletal : No joint pain, No Myalgias, No Joint Swelling Skin : No Skin Lesions, No rash Neuro : No Weakness, No Numbness, pos Dizziness, no Headache Psych : No Anxiety/Panic, No Depression Heme/Lymph: No Bruising, No Bleeding,No Lymphadenopathy Endocrine : No Polyuria, No Polydipsia All other systems reviewed and are negative [facility] Past Medical History Attestation statement: The following information was validated with the patient. Source: old records reviewed Medical History History of diverticulosis Seasonal allergies Osteoarthritis of left knee Tubular adenoma of colon Hypertension Hypercholesterolemia Obesity (BMI 30-39.9) Brain aneurysm Asthma Surgical History History of knee surgery Hx of brain surgery Hx of colonoscopy History of inguinal hernia repair Family History Family History Father Esophageal cancer Mother Diabetes Hypertension Stroke Maternal Uncle Throat cancer Social History Social History Housing: Apartment Alcohol intake: current Alcohol intake frequency: a few times a month Patient Tobacco Use Status: Current someday Tobacco user Tobacco use type: Cigarette Cigarettes Per Day: 1 Smoked in Last 30 Days: Yes e-Cigarette/Vaping Use: Never Used Second Hand Smoke Exposure: Yes Use of substances other than those prescribed or required for medical reasons: No Advance Directives: No Advance Directives Information Provided: No service: No Current occupational status: employed Current occupation: rt handed Cognitive needs: No Hearing needs: No Vision needs: No Physical Exam 2 Vital Signs: Vital Signs: Last Vital Signs Temp 97.6 F 07/20/23 19:28 Pulse 78 07/20/23 22:08 Resp 18 07/20/23 22:08 BP 109/56 L 07/20/23 22:08 Pulse Ox 97 07/20/23 22:08 O2 Del Method Room Air 07/20/23 22:08 BMI result Body Mass Index 32.0 Appearance: Alert. Oriented X3. No acute distress. Eyes: Pupils equal, round and reactive to light. ENT: Pharynx normal. Neck: Normal inspection. Neck supple. CVS: Normal heart rate and rhythm. Pulses normal. Respiratory: No respiratory distress. Breath sounds normal. Abdomen: Soft and nontender. Rectal: brb noted on my finger on exam Skin: Skin warm and dry. pale skin color. Normal skin turgor. Extremities: No lower extremity edema. No calf ttp Neuro: Oriented X 3. No motor deficit. No sensory deficit. Course Course Course Narrative: lactic acidosis due to GIB and not infection or severe sepsis Reevaluation(s) Reevaluation #1: COLONOSCOPY JNE 2016 CLOTTED BLOOD IN SIGMOID COLON, EROSIONS IN TERMINAL ILEUM Medications Administered Discontinued Medications Generic Name Dose Route Start Last Admin Trade Name Freq PRN Reason Stop Dose Admin Sodium Chloride 1,000 mls @ 999 mls/hr 07/20/23 19:30 07/20/23 20:32 Ns IVCONT 07/20/23 20:30 Infused .Q1H1M EMMA Infusion Iohexol 100 ml 07/20/23 21:17 07/20/23 21:17 Iohexol 350 Mg/Ml 100 Ml Infus..Btl IV 07/20/23 21:18 80 ml ONCE ONE Administration Medical Decision Making Medical Decision Making [facility] Narrative: 62 yo male with PMH of HTN, HLD, brain aneurysm s/p coil, prior lower GIB 4 years ago at [facility] that required cauterization here with c/o brb per rectum with clots since 430pm now pale and dizzy not on thinners at this time two IV lines, labs, type and screen - close observation of BP and transfusion PRN - he agrees. CT scan with GI bleed protocol. Differential Diagnosis Differential Diagnoses: The differential diagnosis associated with the presentation includes acute rectal bleed Admission/Observation Consideration of admission/observation: Escalation of care including admission/observation considered admit given drop in hemoglobin Consult Healthcare Provider Management of the patient was discussed with: Hospitalist (agrees to admit) and Various Exceptionalities Teacher NPO and ice chips no prep needed per Dr. Wu Lab Data [facility] Lab Attestation statement: I reviewed the patient's lab results. 07/21/23 00:08 07/20/23 19:40 Labs: Lab Results 07/20/23 07/20/23 07/20/23 Range/Units 19:40 20:23 22:33 WBC 9.9 (4.8-10.8) X10*3/uL RBC 4.02 L (4.60-5.80) X10*6/uL Hgb 13.9 L (14.0-18.0) g/dl Hct 42.0 (42.0-52.0) % MCV 104.5 H (80.0-98.0) fL MCH 34.6 H (27.0-33.0) pg MCHC 33.1 (31.0-36.0) g/dl RDW 13.2 (11.0-16.0) % Plt Count 322 (160-400) X10*3/uL MPV 9.2 L (9.4-12.4) fL Immature Gran % (Auto) 0.8 H (0.0-0.4) % Neut % (Auto) 67.6 (45-73) % Lymph % (Auto) 21.6 (20-40) % Quay % (Auto) 5.5 (2-11) % Eos % (Auto) 3.9 (0-4) % Baso % (Auto) 0.6 (0-2) % Lymph # (Auto) 2.1 (1.2-4.9) X10*3/uL Quay # (Auto) 0.6 (0.1-1.2) X10*3/uL Eos # (Auto) 0.4 (0.0-0.4) X10*3/uL Baso # (Auto) 0.1 (0.0-0.2) X10*3/uL Abs Immat Gran (auto) 0.08 H (0.00-0.03) X10*3/uL Absolute Neuts (auto) 6.7 (2.0-8.3) x10*3/uL Absolute Nucleated RBC 0.000 (0.0-0.012) X10*3/uL Nucleated RBC % (auto) 0.0 (0.0-0.2) /100WBC PT 11.2 (11.1-13.3) SEC INR 0.9 (0.9-1.1) Sodium 141 (135-145) mmol/L Potassium 4.3 (3.3-5.1) mmol/L Chloride 106 (96-108) mmol/L Carbon Dioxide 22 (22-29) mmol/L Anion Gap 17 (12-20) BUN 13 (9-16) mg/dL Creatinine 1.44 H (0.5-1.4) mg/dL Estim Creat Clear Calc 57.3 Estimated GFR 50 Random Glucose 137 H (60-115) mg/dL Lactic Acid 3.7 H* (0.5-2.0) mmol/L Lactic Acid F/U @ 2Hr 2.3 H* (0.5-2.0) mmol/L Calcium 9.5 (8.4-10.2) mg/dL Magnesium 2.1 (1.6-2.6) mg/dL Total Bilirubin 0.2 (0.0-1.0) mg/dL Direct Bilirubin < 0.2 (0.0-0.5) mg/dL AST 26 (5-37) U/L ALT 16 (0-40) U/L Alkaline Phosphatase 44 (39-117) U/L Total Protein 7.0 (6.5-8.0) g/dL Albumin 4.1 (3.5-5.0) g/dL Blood Type O Positive Antibody Screen NEGATIVE 07/21/23 Range/Units 00:08 WBC 11.5 H (4.8-10.8) X10*3/uL RBC 3.31 L (4.60-5.80) X10*6/uL Hgb 11.5 L (14.0-18.0) g/dl Hct 33.8 L (42.0-52.0) % MCV 102.1 H (80.0-98.0) fL MCH 34.7 H (27.0-33.0) pg MCHC 34.0 (31.0-36.0) g/dl RDW 13.4 (11.0-16.0) % Plt Count 253 (160-400) X10*3/uL MPV 9.1 L (9.4-12.4) fL Immature Gran % (Auto) (0.0-0.4) % Neut % (Auto) (45-73) % Lymph % (Auto) (20-40) % Quay % (Auto) (2-11) % Eos % (Auto) (0-4) % Baso % (Auto) (0-2) % Lymph # (Auto) (1.2-4.9) X10*3/uL Quay # (Auto) (0.1-1.2) X10*3/uL Eos # (Auto) (0.0-0.4) X10*3/uL Baso # (Auto) (0.0-0.2) X10*3/uL Abs Immat Gran (auto) (0.00-0.03) X10*3/uL Absolute Neuts (auto) (2.0-8.3) x10*3/uL Absolute Nucleated RBC 0.000 (0.0-0.012) X10*3/uL Nucleated RBC % (auto) 0.0 (0.0-0.2) /100WBC PT (11.1-13.3) SEC INR (0.9-1.1) Sodium (135-145) mmol/L Potassium (3.3-5.1) mmol/L Chloride (96-108) mmol/L Carbon Dioxide (22-29) mmol/L Anion Gap (12-20) BUN (9-16) mg/dL Creatinine (0.5-1.4) mg/dL Estim Creat Clear Calc Estimated GFR Random Glucose (60-115) mg/dL Lactic Acid (0.5-2.0) mmol/L Lactic Acid F/U @ 2Hr (0.5-2.0) mmol/L Calcium (8.4-10.2) mg/dL Magnesium (1.6-2.6) mg/dL Total Bilirubin (0.0-1.0) mg/dL Direct Bilirubin (0.0-0.5) mg/dL AST (5-37) U/L ALT (0-40) U/L Alkaline Phosphatase (39-117) U/L Total Protein (6.5-8.0) g/dL Albumin (3.5-5.0) g/dL Blood Type Antibody Screen Independent Interpretation I performed an independent interpretation of an: EKG and CT Scan (no active GIB) Interpretation: Rate: 77 Rhythm: NSR [place]: normal Normal P waves. Normal DORIS. Normal QRS complex. ST T wave : normal no SARAH q waves inf leads qTC: normal prior studies: no acute ischemia The study has been interpreted contemporaneously by me. . Radiology Impression Discussion of test interpretation with radiology: I have reviewed the radiologist's reading. Independent Historian Clinical information obtained from an independent historian. History obtained from or confirmed by: EMS External Record Review External record reviewed: Inpatient record and Outpatient record Discharge Plan Discharge Clinical Impression: Rectal bleeding, Acidosis, lactic Patient Disposition: Admitted As Inpatient
[2023-07-20] MEDS: 0.9 % Sodium Chloride 1,000 ML 999 ML IVCONT (19:36)
[2023-07-20 19:50] LABS: MANUAL DIFF FLAG NO
[2023-07-20 19:52] LABS: Basophils Absolute Auto 0.1 X10*3/uL (0.0-0.2); Basophils Percent Auto 0.6 % (0-2); Eosinophils Absolute Auto 0.4 X10*3/uL (0.0-0.4); Eosinophils Percent Auto 3.9 % (0-4); Hemoglobin 13.9 g/dl (14.0-18.0); Imm Gran Abs Auto 0.08 X10*3/uL (0.00-0.03); Imm Gran Pct Auto 0.8 % (0.0-0.4); Lymphocytes Absolute Auto 2.1 X10*3/uL (1.2-4.9); Lymphocytes Percent Auto 21.6 % (20-40); Mean Corpuscular HGB Conc 33.1 g/dl (31.0-36.0); Mean Corpuscular Hemoglobin 34.6 pg (27.0-33.0); Mean Corpuscular Volume 104.5 fL (80.0-98.0); Mean Platelet Volume 9.2 fL (9.4-12.4); Monocytes Absolute Auto 0.6 X10*3/uL (0.1-1.2); Monocytes Percent Auto 5.5 % (2-11); Neutrophils Absolute Auto 6.7 x10*3/uL (2.0-8.3); Neutrophils Percent Auto 67.6 % (45-73); Platelet Count 322 X10*3/uL (160-400); Red Blood Count 4.02 X10*6/uL (4.60-5.80); Red Cell Distribution Width 13.2 % (11.0-16.0); White Blood Count 9.9 X10*3/uL (4.8-10.8)
--- NOTE | 2023-07-20 19:54 | PC.NURSE ---
assumed care of pt. pt BIBA from home for weakness and bloody stool since 0. pt a&ox4, respirations even and unlabored VS WNL. abdomen soft non tender to touch. pt denies pain at this time. IVs established. labs drawn. requested pt to call for assistance out of bed.
[2023-07-20 20:04] LABS: Lactic Acid 3.7 mmol/L (0.5-2.0)
[2023-07-20 20:05] LABS: INTERNATIONAL NORM RATIO 0.9 (0.9-1.1); Prothrombin Time 11.2 SEC (11.1-13.3)
[2023-07-20 20:08] LABS: Alanine Aminotransferase 16 U/L (0-40); Albumin Level 4.1 g/dL (3.5-5.0); Alkaline Phosphatase 44 U/L (39-117); Anion Gap 17 (12-20); Aspartate Amino Transferase 26 U/L (5-37); Bilirubin Direct < 0.2 mg/dL (0.0-0.5); Bilirubin Total 0.2 mg/dL (0.0-1.0); Blood Urea Nitrogen 13 mg/dL (9-16); Calcium 9.5 mg/dL (8.4-10.2); Carbon Dioxide 22 mmol/L (22-29); Chloride 106 mmol/L (96-108); Creatinine Clr Calc Pharmacy 57.3; Estimated Glomerular Filt Rate 50; Glucose Random 137 mg/dL (60-115); Magnesium 2.1 mg/dL (1.6-2.6); Potassium 4.3 mmol/L (3.3-5.1); Sodium 141 mmol/L (135-145)
[2023-07-20 20:33] VITALS: BP 119/54; PULSE 79; RESP 18; O2SAT 98
--- OUTSIDE RECORDS SUMMARY | 2023-07-20 21:10 | XMS_ITS | Continuity of Care Document ---
Author Name Unknown Organization [facility] Address [address] [place] [id number] Care Team Providers Care Acupressure Therapist Name Role Phone Gabbi Washington MD Primary Care Physician [phone] Encounter [facility] Date(s): 08/12/20 - 08/12/[address] [address]- [facility] Encounter Diagnosis Leg laceration(Final) - 08/12/20 Discharge Disposition: A-D/C Home Attending Physician: Iron Gonzalez MD Admitting Physician: Iron Gonzalez MD Referring Physician: Not on Staff, Referring MD Allergies, Adverse Reactions, Alerts No Known Medication Allergies Immunizations Given and Recorded Vaccine Date Status Refusal Reason Tetanus Immune Globulin 08/12/20 Given tetanus/diphtheria/pertussis, acel(Tdap) 08/12/20 Given pneumococcal 23-valent vaccine 04/06/16 Given Medications albuterol CFC free 90 mcg/inh inhalation aerosol 1 puffs, Inhalation, 4 times a day, PRN for wheezing, # 18 Gm, 0 Refills, Maintenance, 11/29/15 12:18:51, Aerosol Start Date: 11/29/15 Status: Ordered Aspirin Enteric Coated 81 mg oral delayed release tablet 1 tablet = 81 mg, By Mouth, Daily, # 90 tablet, 3 Refills, Maintenance, 08/02/16 15:25:34 Start Date: 08/02/16 Status: Ordered Ativan 1 mg oral tablet 1 tablet = 1 mg, By Mouth, Daily, PRN as needed for anxiety, take 1 tablet 1hr before exam then take 1 tablet 20 minutes before exam, # 5 tablet, 0 Refills, Maintenance, 01/13/18 10:18:29 EDT Start Date: 01/13/18 Status: Ordered Hemoglobin and hematocrit Hemoglobin and hematocrit, See Instructions, # 1 each, Refills 0, Tot. Refills 0, Maintenance, Please draw hemoglobin and hematocrit, 06/05/17 20:07:08, Compound Start Date: 03/24/17 Status: Ordered Keflex monohydrate 500 mg oral capsule 1 capsule = 500 mg, By Mouth, 3 times a day, for 7 days, # 21 capsule, 0 Refills, Acute 08/19/20 21:36:00 EDT, 08/12/20 21:36:00 EDT, Capsule, [id number] Start Date: 08/12/20 Stop Date: 08/19/20 Status: Ordered lisinopril 10 mg oral tablet 1 tablet = 10 mg, By Mouth, Daily, # 30 tablet, 0 Refills, Maintenance, 11/29/15 12:18:26, Tablet Start Date: 11/29/15 Status: Ordered Qvar 80 mcg/inh inhalation aerosol 1 puffs, Inhalation, 2 times a day, 0 Refills, Maintenance, 02/05/16 6:46:37 Start Date: 02/05/16 Status: Ordered Vitamin D 50959 iu oral capsule 50,000 International_Units, 1, capsule, By Mouth, Every week, Refills 0, Maintenance, 01/22/17 6:45:36 Start Date: 01/22/17 Status: Ordered Problem List Condition Effective Dates Status Health Status Inform ant 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 FINDINGS: No fracture, dislocation or bone lesion. Visualized portions of the joints are normal. Normal soft tissues. IMPRESSION: Negative. WSN: [id number] Ordering Physician: Sagar Law Dictated By: Aaron Fonseca MD Dictated Date/Time: 08/12/20 7:20 pm Reviewed By: Aaron Fonseca MD Signed By: Aaron Fonseca MD Signed Date/Time: 08/12/20 7:20 pm Transcribed By: FELICITY Transcribed Date/Time: 08/12/20 7:19 pm Vital Signs Most recent to oldest [Reference Range]: 1 2 Oxygen Saturation [94-100 %] 99 % (08/12/20 10:10 PM) 98 % (08/12/20 6:28 PM) Pulse Rate [55-90 bpm] 80 bpm (08/12/20 10:10 PM) 96 bpm *H* (08/12/20 6:28 PM) Blood Pressure [90-138/55-84 mm Hg] 138/ 60mm Hg (08/12/20 10:10 PM) 148/89mm Hg *H* (08/12/20 6:28 PM) Respiratory Rate [16-30 br/min] 16 br/mi n (08/12/20 10:10 PM) 18 br/min (08/12/20 6:28 PM) Temperature [96.8-100.4 DegF] 98.2 DegF (08/12/20 10:10 PM) Mode of Delivery (Oxygen) Room air (08/12/20 10:10 PM) Room air (08/12/20 6:28 PM) Blood pressure sites Arm, right (08/12/20 10:10 PM) Arm, right (08/12/20 6:28 PM) Temperature Route Oral (08/12/20 10:10 PM) Social History Social History Type Response Smoking Status Current some day smo ker; Type: Cigarettes entered on: 11/03/15 Sex
[2023-07-20] MEDS: iohexoL 350 MG/ML 100 ML INFUS..BTL IV (21:17)
[2023-07-20 21:48] LABS: Reflex Lactate? Lactic Acid Added
[2023-07-20 22:08] VITALS: BP 109/56; PULSE 78; RESP 18; O2SAT 97
[2023-07-20 22:55] LABS: ~Lactic Acid-LAB USE ONLY 2.3 mmol/L (0.5-2.0)
--- NOTE | 2023-07-20 23:13 | MHC.EDTECH ---
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
[2023-07-21] VITALS (7 sets, daily range): BP systolic 106–135; BP diastolic 61–78; PULSE 61–83; RESP 16–18; TEMP 36.5–37; O2SAT 96–100
[2023-07-21 00:13] LABS: Hematocrit 33.8 % (42.0-52.0); Hemoglobin 11.5 g/dl (14.0-18.0); Mean Corpuscular Hemoglobin 34.7 pg (27.0-33.0); Mean Corpuscular Volume 102.1 fL (80.0-98.0); Mean Platelet Volume 9.1 fL (9.4-12.4); Platelet Count 253 X10*3/uL (160-400); Red Blood Count 3.31 X10*6/uL (4.60-5.80); Red Cell Distribution Width 13.4 % (11.0-16.0); White Blood Count 11.5 X10*3/uL (4.8-10.8)
[2023-07-21 00:39] LABS: Reflex Lactate? 2 Y
--- NOTE | 2023-07-21 00:55 | PC.NURSE ---
pt NPO per Devorah verbal order.
[2023-07-21] MEDS: 0.9 % Sodium Chloride 1,000 ML 100 ML IVCONT ×3 (01:00→20:10)
[2023-07-21 01:10] LABS: OBS Int Ctl Valid YES; OBS1 POSITIVE (NEGATIVE)
--- NOTE | 2023-07-21 01:11 | PC.NURSE ---
med rec done at this time. pt reports no pain at this time, informed pt of plan of care. maintenance fluids started, vss.
--- NOTE | 2023-07-21 01:31 | PC.NURSE ---
pt ambulated to bedside commode. dark red blood noted in commode, pt denies pain at this time.
[2023-07-21 02:27] LABS: ~Lactic Acid-LAB USE ONLY 0.9 mmol/L (0.5-2.0)
--- NOTE | 2023-07-21 05:06 | PC.NURSE ---
pt allowed to sleep. respirations even and unlabored.
--- NOTE | 2023-07-21 06:12 | PHA.MEDREC ---
Pharmacy Consult ? Medication Reconciliation Pharmacy has reviewed the medication reconciliation done by RN.
--- NOTE | 2023-07-21 06:23 | P.HPHOSP_ITS ---
History of Present Illness Date of Service: 07/21/23 Chief Complaint: GI bleed 62-year-old male with past medical history of HLD, HTN, current embolization of a brain aneurysm in 2016 on aspirin comes into the hospital complaints of multiple episodes of bloody bowel movements. Patient reports no abdominal pain, no nausea or vomiting, headache, no change in vision, no dizziness, no chest pain, no shortness of breath. Patient reports that he went to the bathroom and had 4-5 episodes of bright red blood per rectum. All other review of system otherwise negative To the ED patient hemodynamically stable no significant abnormal vitals Labs are significant for WBC count of 9.9, hemoglobin of 13.9 dropped to 11.5, lactic acid of 3.7 that resolved after fluids, Stool occult blood positive Abdomen pelvic CT bleed study shows no evidence of contrast extravasation to suggest active hemorrhage although study is limited. Cholelithiasis without acute cholecystitis, also a subcentimeter hypodense focus is seen in the renal intra polar region too small to characterize Patient admitted for further evaluation Review of Systems 2 Review of Systems: Yes all other systems are reviewed and are negative [facility] Medical History History of diverticulosis Seasonal allergies Osteoarthritis of left knee Tubular adenoma of colon Hypertension Hypercholesterolemia Obesity (BMI 30-39.9) Brain aneurysm Asthma Family History Father Esophageal cancer Mother Diabetes Hypertension Stroke Maternal Uncle Throat cancer Surgical History History of knee surgery Hx of brain surgery Hx of colonoscopy History of inguinal hernia repair Social History Housing: Apartment Alcohol intake: current Alcohol intake frequency: a few times a month Patient Tobacco Use Status: Current someday Tobacco user Tobacco use type: Cigarette Cigarettes Per Day: 1 Smoked in Last 30 Days: Yes e-Cigarette/Vaping Use: Never Used Second Hand Smoke Exposure: Yes Use of substances other than those prescribed or required for medical reasons: No Advance Directives: No Advance Directives Information Provided: No Nutrition Risks: No Nutritional Risk service: No Current occupational status: employed Current occupation: rt handed Cognitive needs: No Hearing needs: No Vision needs: No Meds Allergies Allergy/AdvReac Type Severity Reaction Status Date / Time No Known Allergies Allergy Verified 07/20/23 19:33 Active Medications: Current Medications Acetaminophen (Acetaminophen 325 Mg Tablet) 650 mg PO Q6H PRN PRN Reason: Pain, Mild (Pain Scale 1-3) Sodium Chloride (Ns) 1,000 mls @ 100 mls/hr IVCONT .Q10H [facility] Last Admin: 07/21/23 01:00 Dose: 100 mls/hr Ondansetron HCl (Ondansetron Hcl 4 Mg/2 Ml Vial) 4 mg IVPUSH Q8H PRN PRN Reason: Nausea and Vomiting Sodium Chloride (0.9 % Sodium Chloride Flush 3 Ml Syringe) 3 ml IVFLUSH QSHIFT [facility] Home Medications Medication Instructions Recorded Confirmed Last Taken Type albuterol sulfate 90 mcg/actuation 2 puff inhalation Q4-6H PRN 08/17/20 07/21/23 Unknown History aerosol inhaler (ProAir HFA) Wheezing cholecalciferol (vitamin D3) 1,250 1,250 mcg PO QWEEK 08/17/20 07/21/23 Unknown History mcg (50,000 unit) capsule Physical Exam 2 Vital Signs and Narrative: Vital Signs: Last Vital Signs Temp 98.2 F 07/21/23 02:32 Pulse 68 07/21/23 04:50 Resp 18 07/21/23 04:50 BP 106/77 07/21/23 04:50 Pulse Ox 99 07/21/23 04:50 O2 Del Method Room Air 07/21/23 04:50 BMI result Body Mass Index 32.0 Const: General: cooperative and no acute distress Eyes: General: appearance normal, both eyes and all related structures Resp: Effort & Inspection: normal respiratory effort Auscultation: clear to auscultation bilaterally Cardio: Rate: regular rate Rhythm: regular rhythm GI: Other: Abdomen is soft, nontender, no rebound or guarding Palpation (GI): Soft to palpation Auscultation: normal bowel sounds Skin: General skin exam: no rashes or lesions noted Neuro: Cognition (Neuro): normal cognition Extrem: General: Yes normal to inspection and Yes no pedal edema Results Labs 07/21/23 00:08 07/20/23 19:40 Labs: Laboratory Results - last 24 hr 07/20/23 07/20/2323 19:40 20:23 22:33 MCV 104.5 H MCH 34.6 H MCHC 33.1 RDW 13.2 Plt Count 322 MPV 9.2 L Immature Gran % (Auto) 0.8 H Neut % (Auto) 67.6 Lymph % (Auto) 21.6 [place] % (Auto) 5.5 Eos % (Auto) 3.9 Baso % (Auto) 0.6 Lymph # (Auto) 2.1 [place] # (Auto) 0.6 Eos # (Auto) 0.4 Baso # (Auto) 0.1 Abs Immat Gran (auto) 0.08 H Absolute Neuts (auto) 6.7 Absolute Nucleated RBC 0.000 Nucleated RBC % (auto) 0.0 PT 11.2 INR 0.9 Anion Gap 17 Estim Creat Clear Calc 57.3 Estimated GFR 50 Random Glucose 137 H Lactic Acid 3.7 H* Lactic Acid F/U @ 2Hr 2.3 H* Lactic Acid F/U @ 4Hr Calcium 9.5 Magnesium 2.1 Total Bilirubin 0.2 Direct Bilirubin < 0.2 AST 26 ALT 16 Alkaline Phosphatase 44 Total Protein 7.0 Albumin 4.1 Stool Occult Blood Blood Type O Positive Antibody Screen NEGATIVE 07/21/23 07/21/23 07/21/23 00:08 01:03 02:07 MCV 102.1 H MCH 34.7 H MCHC 34.0 RDW 13.4 Plt Count 253 MPV 9.1 L Immature Gran % (Auto) Neut % (Auto) Lymph % (Auto) [place] % (Auto) Eos % (Auto) Baso % (Auto) Lymph # (Auto) [place] # (Auto) Eos # (Auto) Baso # (Auto) Abs Immat Gran (auto) Absolute Neuts (auto) Absolute Nucleated RBC 0.000 Nucleated RBC % (auto) 0.0 PT INR Anion Gap Estim Creat Clear Calc Estimated GFR Random Glucose Lactic Acid Lactic Acid F/U @ 2Hr Lactic Acid F/U @ 4Hr 0.9 Calcium Magnesium Total Bilirubin Direct Bilirubin AST ALT Alkaline Phosphatase Total Protein Albumin Stool Occult Blood POSITIVE Blood Type Antibody Screen Imaging Radiologist's Impressions: Impressions Abdomen/Pelvis CT 07/20/23 21:30 IMPRESSION: 1. No evidence of contrast extravasation to suggest active hemorrhage though evaluation is slightly limited secondary to respiratory motion artifact on the gastrointestinal tract during arterial phase. 2. Cholelithiasis without acute cholecystitis. 3. Subcentimeter hypodense focus along the right renal interpolar region, too small to characterize though statistically representing a cyst. 4. Colonic diverticulosis without acute diverticulitis. 5. Small fat filled bilateral inguinal hernias. 6. Prostate is enlarged measuring 4.9 x 4.3 cm with mass effect upon the urinary bladder base. Assessment and Plan (1) Rectal bleeding: Status: Acute Plan 62-year-old male past medical history of HTN, HLD, brain aneurysm status post coiling on aspirin comes into the hospital with complaints of GI bleed # acute GI bleed - likely lower GI bleed, ? Diverticular - BUN normal - on aspirin - aspirin on hold, will make NPO, GI notified and will see patient in a.m. - follow H&H # HLD - continue statin # HTN - stable - continue lisinopril DVT prophylaxis: SCDs Given patient's need for further evaluation GI bleed patient require minimum 2 nights inpatient hospital stay for further management and monitoring Time Spent With Patient Time: Total time managing care of this patient today ____ minutes. Quality Stroke Does the patient have a stroke diagnosis?: No VTE Prior VTE?: No VTE Risk Level:: Medical - low VTE Device Contraindication: N/A - Device Ordered VTE Drug Contraindication: Treatment Not Indicated
[2023-07-21 07:37] LABS: MANUAL DIFF FLAG NO
[2023-07-21 07:39] LABS: Basophils Absolute Auto 0.1 X10*3/uL (0.0-0.2); Basophils Percent Auto 0.5 % (0-2); Eosinophils Absolute Auto 0.3 X10*3/uL (0.0-0.4); Eosinophils Percent Auto 2.5 % (0-4); Hematocrit 31.5 % (42.0-52.0); Hemoglobin 10.6 g/dl (14.0-18.0); Imm Gran Abs Auto 0.06 X10*3/uL (0.00-0.03); Imm Gran Pct Auto 0.6 % (0.0-0.4); Mean Corpuscular HGB Conc 33.7 g/dl (31.0-36.0); Mean Corpuscular Hemoglobin 34.4 pg (27.0-33.0); Mean Corpuscular Volume 102.3 fL (80.0-98.0); Mean Platelet Volume 9.5 fL (9.4-12.4); Monocytes Absolute Auto 0.8 X10*3/uL (0.1-1.2); Monocytes Percent Auto 7.3 % (2-11); Neutrophils Absolute Auto 7.3 x10*3/uL (2.0-8.3); Neutrophils Percent Auto 70.1 % (45-73); Platelet Count 243 X10*3/uL (160-400); Red Blood Count 3.08 X10*6/uL (4.60-5.80); Red Cell Distribution Width 13.3 % (11.0-16.0); White Blood Count 10.4 X10*3/uL (4.8-10.8)
[2023-07-21 07:56] LABS: Anion Gap 11 (12-20); Blood Urea Nitrogen 11 mg/dL (9-16); Calcium 8.3 mg/dL (8.4-10.2); Carbon Dioxide 25 mmol/L (22-29); Chloride 108 mmol/L (96-108); Creatinine Clr Calc Pharmacy 108.5; Estimated Glomerular Filt Rate > 60; Glucose Random 101 mg/dL (60-115); Sodium 140 mmol/L (135-145)
--- NOTE | 2023-07-21 07:58 | PC.NURSE ---
Spoke to daughter [place], updated on plan with permission of pt. [place] beltre recieved
--- NOTE | 2023-07-21 08:58 | PC.NURSE ---
Pt assisted to change into hospital attire. Denies pain or bloody diarrhea at this time sincel ast episode. SKin pwd. Speaking full sentences. NS infusing. Aware of bed assgn, awaiting to give report.
--- NOTE | 2023-07-21 09:20 | PM.EVENT ---
Event Note Date of Service: 07/21/23 Event Note: 62-year-old male past medical history of HTN, HLD, brain aneurysm status post coiling on aspirin comes into the hospital with complaints of GI bleed Acute GI bleed stable HH 10.6/31.5 stool occult positive likely lower GI bleed, ? Diverticular BUN normal aspirin on hold NPO, GI consult pending HLD continue statin HTN stable continue lisinopril DVT prophylaxis: SCDs attending Dr. Hurst Given patient's need for further evaluation GI bleed patient require minimum 2 nights inpatient hospital stay for further management and monitoring Time Spent With Patient Time: Total time managing care of this patient today ____ minutes.
--- NOTE | 2023-07-21 10:33 | MHC.CM.PN ---
pt lives alone is independent has own ride hoew ill not need servies when dcd
[2023-07-21] MEDS: 0.9 % Sodium Chloride Flush 3 ML SYRINGE IVFLUSH ×2 (15:56→23:29)
--- NOTE | 2023-07-21 16:40 | PC.NURSE ---
Patient reported bloody BM ,photo sent to JONNA East to notify
--- NOTE | 2023-07-21 16:57 | PM.EVENT ---
Event Note Date of Service: 07/21/23 Event Note: GI consult dictated Presentation is c/w diverticular bleeding. Hct stable without ongoing bleeding If recurrent bleeding, obtain labeled rbc scan. Given relatively recent colonoscopy (07/09), hold off on this for now. Time Spent With Patient Time: Total time managing care of this patient today ____ minutes.
[2023-07-22] VITALS (9 sets, daily range): BP systolic 101–147; BP diastolic 57–73; PULSE 60–95; RESP 16–18; TEMP 36.1–36.6; O2SAT 98–99
--- NOTE | 2023-07-22 01:14 | CONS_ITS ---
DATE OF SERVICE: 07/21/2023 REFERRING PHYSICIAN: Kita Everett NP REASON FOR CONSULTATION: GI bleeding. HISTORY OF PRESENT ILLNESS: The patient is a pleasant 62-year-old man who was admitted to the hospital after presenting to the emergency room with complaints of rectal bleeding. He states symptoms began yesterday while he was watching a football game. He had gurgling in his stomach and the urge to move his bowels. When he moved his bowels, he had bloody stools. This happened 4 times at home, and he was somewhat lightheaded but did not pass out. He denies any abdominal or rectal pain. He does have a prior history of diverticular bleeding and last underwent colonoscopy in June 2020 with removal of a small hyperplastic polyp. He does have a prior history of tubular adenomas. Extensive diverticulosis in the sigmoid was noted at the time of his colonoscopy. He denies any use of blood thinners except for a baby aspirin which he takes because of a history of a brain aneurysm that was embolized. In the emergency department, he was evaluated with laboratory studies and imaging, which are reviewed. His hematocrit has remained relatively stable at 31.5. This morning, down slightly from 33.8. Last night, he had 1 episode of bloody stool today. CT imaging was obtained, which is reviewed. Diverticulosis was identified and no contrast extravasation to suggest active hemorrhage was seen. We reviewed this today. PAST MEDICAL HISTORY: 1. Hypertension. 2. Asthma. 3. Seasonal allergic rhinitis. 4. Brain aneurysm as above. 5. Diverticular bleeding. 6. Hyperlipidemia. CURRENT MEDICATIONS: His current medication list is reviewed in the chart. ALLERGIES: THERE ARE NONE REPORTED. PAST SURGICAL HISTORY: Includes knee surgery, aneurysm, embolization, colonoscopy, and inguinal hernia repair. REVIEW OF SYSTEMS: SKIN: No pruritus. HEENT: Negative. CARDIOPULMONARY: No shortness of breath or chest pain. GASTROINTESTINAL: As above. GENITOURINARY: Negative. NEUROPSYCHIATRIC: Negative. PHYSICAL EXAMINATION: GENERAL: Shows a pleasant male, in no acute distress. VITAL SIGNS: Reviewed in the electronic medical record and are stable. SKIN: Anicteric. HEENT: Shows no scleral icterus. NECK: Without lymphadenopathy or thyromegaly. LUNGS: Clear. HEART: Shows a regular rate and rhythm. S1, S2. No murmur. ABDOMEN: Soft without focal masses or tenderness. Bowel sounds are present. No organomegaly is noted. EXTREMITIES: Without edema. DIAGNOSTIC DATA: Laboratory data and CT scan are reviewed. IMPRESSION: Gastrointestinal bleeding: His gastrointestinal bleeding appears consistent with a diverticular bleed. He does not appear to have active bleeding at this time. If he does show recurrent signs of bleeding, I would recommend obtaining a nuclear medicine red cell scan. Given that his colonoscopy was relatively recent, I would not recommend repeating it at this time as it is unlikely to international exchange coordinator. Thanks for asking me to see him. I will follow him in the hospital with you. MD BENITA Chavez/ЕЛЕНА / [phone]
[2023-07-22] MEDS: 0.9 % Sodium Chloride 1,000 ML 100 ML IVCONT ×2 (05:56→17:53)
[2023-07-22 06:08] LABS: Mean Corpuscular HGB Conc 33.5 g/dl (31.0-36.0); Mean Corpuscular Hemoglobin 35.1 pg (27.0-33.0); Mean Corpuscular Volume 104.6 fL (80.0-98.0); Platelet Count 188 X10*3/uL (160-400); Red Blood Count 1.94 X10*6/uL (4.60-5.80); White Blood Count 11.5 X10*3/uL (4.8-10.8)
[2023-07-22 06:20] LABS: Hematocrit 20.3 % (42.0-52.0); Hemoglobin 6.8 g/dl (14.0-18.0)
[2023-07-22 06:30] LABS: Anion Gap 8 (12-20); Blood Urea Nitrogen 12 mg/dL (9-16); Calcium 7.5 mg/dL (8.4-10.2); Carbon Dioxide 23 mmol/L (22-29); Chloride 109 mmol/L (96-108); Creatinine Clr Calc Pharmacy 119.6; Estimated Glomerular Filt Rate > 60; Glucose Random 111 mg/dL (60-115); Potassium 4.1 mmol/L (3.3-5.1); Sodium 136 mmol/L (135-145)
--- NOTE | 2023-07-22 06:30 | PC.NURSE ---
0620, CALL FROM LAB WITH CRITICAL HH OF 6.8 AND 20.3, HOSPITALIST ON DUTY ALERTED. PT ALERT, NO STATED PAIN, VSS, NOTED ONE BLOODY STOOL IN BATHROOM SINCE 0000. STOOL OB NOTED POSITIVE, WILL MONITOR FOR NEW ORDERS AND WILL REPORT VALUES TO ONCOMING DAY RN.
--- NOTE | 2023-07-22 08:44 | P.PNIM_ITS ---
Subjective Subjective Date of Service: 07/22/23 Review of Systems Follow up GI bleed 2 bleeding episodes last evening and overnight Physical Exam 2 Vital Signs: Vital Signs: Last Vital Signs Temp 97 F 07/22/23 06:46 Pulse 81 07/22/23 06:46 Resp 16 07/22/23 06:46 BP 101/57 L 07/22/23 06:46 Pulse Ox 98 07/22/23 06:46 O2 Del Method Room Air 07/22/23 06:46 BMI result Body Mass Index 32.0 Appearing in no acute distress lung sounds are clear to auscultation heart regular rate rhythm, clear S1, S2 positive bowel sounds, abdomen is soft, nontender neuro patient is alert x3, no focal deficits Objective Data Active Medications Acetaminophen (Acetaminophen 325 Mg Tablet) 650 mg PO Q6H PRN PRN Reason: Pain, Mild (Pain Scale 1-3) Albuterol Sulfate (Albuterol Sulfate (0.083%) 2.5 Mg/3 Ml Vial.Neb) 2.5 mg INHALE Q4H PRN PRN Reason: bronchospasm Albuterol Sulfate (Albuterol Sulfate 90 Mcg 8 Gm Inhaler) 2 puff INHALE Q4H PRN PRN Reason: Wheezing Ascorbic Acid (Ascorbic Acid 500 Mg Tablet) 500 mg PO DAILY [facility] Ferrous Sulfate (Ferrous Sulfate 324 Mg Tablet.Dr) 324 mg PO DAILY [facility] Sodium Chloride (Ns) 1,000 mls @ 100 mls/hr IVCONT .Q10H [facility] Last Admin: 07/22/23 05:56 Dose: 100 mls/hr Documented By: JOSÉ MIGUEL Lisinopril (Lisinopril 20 Mg Tablet) 20 mg PO DAILY [facility]; Protocol Ondansetron HCl (Ondansetron Hcl 4 Mg/2 Ml Vial) 4 mg IVPUSH Q8H PRN PRN Reason: Nausea and Vomiting Sodium Chloride (0.9 % Sodium Chloride Flush 3 Ml Syringe) 3 ml IVFLUSH QSHIFT [facility] Last Admin: 07/22/23 07:10 Dose: Not Given Documented By: GAIL Non-Admin Reason: IV Running Labs 07/22/23 05:56 07/22/23 05:56 Labs: Laboratory Results - last 24 hr 07/20/23 07/22/23 20:23 05:56 MCV 104.6 H MCH 35.1 H MCHC 33.5 RDW 13.0 Plt Count 188 MPV 10.0 Absolute Nucleated RBC 0.000 Nucleated RBC % (auto) 0.0 Anion Gap 8 L Estim Creat Clear Calc 119.6 Estimated GFR > 60 Random Glucose 111 Calcium 7.5 L D Blood Type O Positive Antibody Screen NEGATIVE Crossmatch See Detail Assessment and Plan (1) Acidosis, lactic: Status: Acute Plan 62-year-old male past medical history of HTN, HLD, brain aneurysm status post coiling on aspirin comes into the hospital with complaints of GI bleed Acute GI bleed with blood loss HH dropped overnight to 6.8/20.3 stool occult positive likely Diverticular bleed BUN normal aspirin on hold NPO, GI consult>Bleeding scan if further episodes noted, ordered \ 2 units PRBC ordered HLD continue statin HTN stable continue lisinopril DVT prophylaxis: SCDs attending Dr. Hodges continue hospital stay for management of active GI bleeding Time Spent With Patient Time: Total time managing care of this patient today ____ minutes. Quality Stroke Does the patient have a stroke diagnosis?: No VTE Prior VTE?: No VTE Risk Level:: Medical - low VTE Device Contraindication: N/A - Device Ordered VTE Drug Contraindication: Treatment Not Indicated
[2023-07-22] MEDS: Ascorbic Acid 500 MG TABLET PO (11:01)
[2023-07-22] MEDS: lisinopriL 20 MG TABLET PO (11:01)
[2023-07-22] MEDS: Ferrous Sulfate 324 MG TABLET.DR PO (11:02)
--- NOTE | 2023-07-22 14:24 | P.PNGI_ITS ---
Subjective Subjective Date of Service: 07/22/23 Interval History: no further bleeding this pm Critical Care Time (minutes): 0 Physical Exam 2 Vital Signs: Vital Signs: Last Vital Signs Temp 97.7 F 07/22/23 11:11 Pulse 82 07/22/23 11:11 Resp 16 07/22/23 11:11 BP 147/72 H 07/22/23 11:11 Pulse Ox 98 07/22/23 06:46 O2 Del Method Room Air 07/22/23 06:46 BMI result Body Mass Index 32.0 GI: Other: abdomen is soft and nontender Objective Data Labs 07/22/23 05:56 07/22/23 05:56 Labs: Laboratory Results - last 24 hr 07/20/23 07/22/23 20:23 05:56 WBC 11.5 H RBC 1.94 L D Hgb 6.8 L* D Hct 20.3 L* D MCV 104.6 H MCH 35.1 H MCHC 33.5 RDW 13.0 Plt Count 188 MPV 10.0 Absolute Nucleated RBC 0.000 Nucleated RBC % (auto) 0.0 Sodium 136 Potassium 4.1 Chloride 109 H Carbon Dioxide 23 Anion Gap 8 L BUN 12 Creatinine 0.69 Estim Creat Clear Calc 119.6 Estimated GFR > 60 Random Glucose 111 Calcium 7.5 L D Blood Type O Positive Antibody Screen NEGATIVE Crossmatch See Detail Procedures Date of Service Date of Service: 07/22/23 Progress Note: A&P Assessment and plan (1) Rectal bleeding: Status: Acute Assessment and Plan: bleeding scan reviewed agree with transfusion consider d/c asa indefinitely Time Spent With Patient Time: Total time managing care of this patient today ____ minutes. Quality Stroke Does the patient have a stroke diagnosis?: No VTE Prior VTE?: No VTE Risk Level:: Medical - low VTE Device Contraindication: N/A - Device Ordered VTE Drug Contraindication: Treatment Not Indicated
--- NOTE | 2023-07-22 15:05 | P.CDIM_ITS ---
PROVIDER RESPONSE TEXT: To clarify, the appropriate diagnosis supported by the clinical indicators: Hypocalcemia QUERY TEXT: PHYSICIAN'S DOCUMENTATION REQUEST Date of Query: 07/22/2023 09:57 AM EDT Patient Name: Bernardo Espitia Admit Date: 07/21/2023 Dear Kita Everett, A review of the medical record indicates additional documentation may be needed. Please review below and update the documentation accordingly. Clinical Indicators: LAB FINDINGS: calcium 7.5 L Based on the above, is there a diagnosis that correlates with these lab findings: Hypocalcemia Labs indicate a diagnosis of (please specify) Other (explain)Clinically unable to determine (explain)Thank you, Jenifer Palencia, CCS, CDIS Use of terms such as suspected, likely, concern for, or probable (associated with a specific diagnosi s that is being evaluated, monitored, or treated as if it exists) are acceptable and can be coded in the inpatient se tting, when documented at the time of discharge. Please use your independent medical judgment in providing your response. THIS QUERY IS PART OF THE PERMANENT MEDICAL RECORD
[2023-07-22 19:16] LABS: MANUAL DIFF FLAG NO
[2023-07-22 19:21] LABS: Basophils Absolute Auto 0.1 X10*3/uL (0.0-0.2); Basophils Percent Auto 0.4 % (0-2); Eosinophils Absolute Auto 0.2 X10*3/uL (0.0-0.4); Eosinophils Percent Auto 1.4 % (0-4); Hematocrit 24.9 % (42.0-52.0); Hemoglobin 8.5 g/dl (14.0-18.0); Imm Gran Abs Auto 0.07 X10*3/uL (0.00-0.03); Imm Gran Pct Auto 0.6 % (0.0-0.4); Lymphocytes Absolute Auto 2.1 X10*3/uL (1.2-4.9); Lymphocytes Percent Auto 18.1 % (20-40); Mean Corpuscular HGB Conc 34.1 g/dl (31.0-36.0); Mean Corpuscular Volume 99.6 fL (80.0-98.0); Monocytes Absolute Auto 0.9 X10*3/uL (0.1-1.2); Monocytes Percent Auto 7.2 % (2-11); Neutrophils Absolute Auto 8.5 x10*3/uL (2.0-8.3); Neutrophils Percent Auto 72.3 % (45-73); Platelet Count 159 X10*3/uL (160-400); Red Cell Distribution Width 14.9 % (11.0-16.0); White Blood Count 11.8 X10*3/uL (4.8-10.8)
[2023-07-23] VITALS (7 sets, daily range): BP systolic 114–132; BP diastolic 56–67; PULSE 66–83; RESP 17–20; TEMP 36–36.8; O2SAT 98–100
[2023-07-23 05:59] LABS: MANUAL DIFF FLAG NO
[2023-07-23 06:53] LABS: Basophils Absolute Auto 0.1 X10*3/uL (0.0-0.2); Basophils Percent Auto 0.7 % (0-2); Eosinophils Absolute Auto 0.2 X10*3/uL (0.0-0.4); Eosinophils Percent Auto 2.4 % (0-4); Hematocrit 22.5 % (42.0-52.0); Hemoglobin 7.7 g/dl (14.0-18.0); Imm Gran Abs Auto 0.06 X10*3/uL (0.00-0.03); Imm Gran Pct Auto 0.7 % (0.0-0.4); Lymphocytes Absolute Auto 1.7 X10*3/uL (1.2-4.9); Lymphocytes Percent Auto 20.3 % (20-40); Mean Corpuscular HGB Conc 34.2 g/dl (31.0-36.0); Mean Corpuscular Hemoglobin 33.8 pg (27.0-33.0); Mean Corpuscular Volume 98.7 fL (80.0-98.0); Mean Platelet Volume 10.1 fL (9.4-12.4); Monocytes Absolute Auto 0.8 X10*3/uL (0.1-1.2); Monocytes Percent Auto 9.6 % (2-11); Neutrophils Absolute Auto 5.5 x10*3/uL (2.0-8.3); Neutrophils Percent Auto 66.3 % (45-73); Platelet Count 151 X10*3/uL (160-400); Red Blood Count 2.28 X10*6/uL (4.60-5.80); Red Cell Distribution Width 15.2 % (11.0-16.0); White Blood Count 8.3 X10*3/uL (4.8-10.8)
[2023-07-23] MEDS: lisinopriL 20 MG TABLET PO (08:28)
[2023-07-23] MEDS: Ferrous Sulfate 324 MG TABLET.DR PO (08:28)
[2023-07-23] MEDS: Ascorbic Acid 500 MG TABLET PO (08:28)
[2023-07-23] MEDS: 0.9 % Sodium Chloride Flush 3 ML SYRINGE IVFLUSH ×2 (08:28→15:24)
--- NOTE | 2023-07-23 10:30 | MHC.CM.PN ---
EMR reviewed and per MD rounds, pt is not medically cleared for D/C today due to GIB requiring blood transfusion. CM will continue to follow.
--- NOTE | 2023-07-23 10:52 | HO.PM.IMPN ---
Subjective Subjective Date of Service: 07/23/23 Review of Systems Follow up GI bleed 2 bleeding episodes last evening and overnight Physical Exam Vital Signs: Vital Signs: Last Vital Signs Temp 97.6 F 07/23/23 09:51 Pulse 66 07/23/23 09:51 Resp 18 07/23/23 09:51 BP 126/59 L 07/23/23 09:51 Pulse Ox 99 07/23/23 06:58 O2 Del Method Room Air 07/23/23 06:58 BMI result Body Mass Index 32.0 Appearing in no acute distress lung sounds are clear to auscultation heart regular rate rhythm, clear S1, S2 positive bowel sounds, abdomen is soft, nontender neuro patient is alert x3, no focal deficits Objective Data Active Medications Acetaminophen (Acetaminophen 325 Mg Tablet) 650 mg PO Q6H PRN PRN Reason: Pain, Mild (Pain Scale 1-3) Albuterol Sulfate (Albuterol Sulfate (0.083%) 2.5 Mg/3 Ml Vial.Neb) 2.5 mg INHALE Q4H PRN PRN Reason: bronchospasm Albuterol Sulfate (Albuterol Sulfate 90 Mcg 8 Gm Inhaler) 2 puff INHALE Q4H PRN PRN Reason: Wheezing Ascorbic Acid (Ascorbic Acid 500 Mg Tablet) 500 mg PO DAILY [facility] Last Admin: 07/23/23 08:28 Dose: 500 mg Documented By: GAIL Ferrous Sulfate (Ferrous Sulfate 324 Mg Tablet.) 324 mg PO DAILY [facility] Last Admin: 07/23/23 08:28 Dose: 324 mg Documented By: GAIL Lisinopril (Lisinopril 20 Mg Tablet) 20 mg PO DAILY [facility]; Protocol Last Admin: 07/23/23 08:28 Dose: 20 mg Documented By: GAIL Ondansetron HCl (Ondansetron Hcl 4 Mg/2 Ml Vial) 4 mg IVPUSH Q8H PRN PRN Reason: Nausea and Vomiting Sodium Chloride (0.9 % Sodium Chloride Flush 3 Ml Syringe) 3 ml IVFLUSH QSHIFT [facility] Last Admin: 07/23/23 08:28 Dose: 3 ml Documented By: GAIL Labs 07/23/23 05:47 07/22/23 05:56 Labs: Laboratory Results - last 24 hr 07/20/23 07/22/23 07/23/23 20:23 18:32 05:47 MCV 99.6 H D 98.7 H MCH 34.0 H 33.8 H MCHC 34.1 34.2 RDW 14.9 15.2 Plt Count 159 L 151 L MPV 10.0 10.1 Immature Gran % (Auto) 0.6 H 0.7 H Neut % (Auto) 72.3 66.3 Lymph % (Auto) 18.1 L 20.3 [place] % (Auto) 7.2 9.6 Eos % (Auto) 1.4 2.4 Baso % (Auto) 0.4 0.7 Lymph # (Auto) 2.1 1.7 [place] # (Auto) 0.9 0.8 Eos # (Auto) 0.2 0.2 Baso # (Auto) 0.1 0.1 Abs Immat Gran (auto) 0.07 H 0.06 H Absolute Neuts (auto) 8.5 H 5.5 Absolute Nucleated RBC 0.000 0.000 Nucleated RBC % (auto) 0.0 0.0 Hold Green Top See Note Blood Type O Positive Antibody Screen NEGATIVE Crossmatch See Detail Assessment and Plan (1) Acidosis, lactic: Status: Acute Plan 62-year-old male past medical history of HTN, HLD, brain aneurysm status post coiling on aspirin comes into the hospital with complaints of GI bleed Acute GI bleed with blood loss HH still low 7.7/22.5 stool occult positive likely Diverticular bleed BUN normal aspirin stopped GI consult>Bleeding scan negative s/p 3 units PRBC ordered HLD continue statin HTN stable continue lisinopril DVT prophylaxis: SCDs due to anemia attending Dr. Geronimo continue hospital stay for management of active GI bleeding Time Spent With Patient Time: Total time managing care of this patient today ____ minutes. Quality Stroke Does the patient have a stroke diagnosis?: No VTE Prior VTE?: No VTE Risk Level:: Medical - low VTE Device Contraindication: N/A - Device Ordered VTE Drug Contraindication: Treatment Not Indicated
[2023-07-23 14:11] LABS: Hematocrit 27.8 % (42.0-52.0); Hemoglobin 9.5 g/dl (14.0-18.0)
[2023-07-23 20:58] LABS: Glucose, Whole Blood 105 mg/dL (60-115)
[2023-07-24] MEDS: 0.9 % Sodium Chloride Flush 3 ML SYRINGE IVFLUSH ×2 (00:17→07:51)
[2023-07-24 03:22] VITALS: BP 101/58; PULSE 59; RESP 16; TEMP 36; O2SAT 98
[2023-07-24 06:27] LABS: MANUAL DIFF FLAG NO
[2023-07-24 06:43] LABS: Basophils Absolute Auto 0.1 X10*3/uL (0.0-0.2); Basophils Percent Auto 0.5 % (0-2); Eosinophils Absolute Auto 0.3 X10*3/uL (0.0-0.4); Eosinophils Percent Auto 3.4 % (0-4); Hematocrit 25.9 % (42.0-52.0); Hemoglobin 8.9 g/dl (14.0-18.0); Imm Gran Abs Auto 0.06 X10*3/uL (0.00-0.03); Imm Gran Pct Auto 0.7 % (0.0-0.4); Lymphocytes Absolute Auto 1.9 X10*3/uL (1.2-4.9); Lymphocytes Percent Auto 20.4 % (20-40); Mean Corpuscular HGB Conc 34.4 g/dl (31.0-36.0); Mean Corpuscular Hemoglobin 33.7 pg (27.0-33.0); Mean Corpuscular Volume 98.1 fL (80.0-98.0); Mean Platelet Volume 9.9 fL (9.4-12.4); Monocytes Absolute Auto 0.8 X10*3/uL (0.1-1.2); Monocytes Percent Auto 8.3 % (2-11); Neutrophils Absolute Auto 6.1 x10*3/uL (2.0-8.3); Neutrophils Percent Auto 66.7 % (45-73); Platelet Count 177 X10*3/uL (160-400); Red Blood Count 2.64 X10*6/uL (4.60-5.80); Red Cell Distribution Width 15.7 % (11.0-16.0); White Blood Count 9.1 X10*3/uL (4.8-10.8)
[2023-07-24 07:24] VITALS: BP 141/62; PULSE 78; RESP 18; TEMP 36.2; O2SAT 96
[2023-07-24] MEDS: Ascorbic Acid 500 MG TABLET PO (07:51)
[2023-07-24] MEDS: lisinopriL 20 MG TABLET PO (07:51)
[2023-07-24] MEDS: Ferrous Sulfate 324 MG TABLET.DR PO (07:52)
--- NOTE | 2023-07-24 08:35 | P.PNGI_ITS ---
Subjective Subjective Date of Service: 07/24/23 Interval History: Mr Espitia reports no additional bleeding overnight. He feels well. Critical Care Time (minutes): 0 Physical Exam 2 Vital Signs: Vital Signs: Last Vital Signs Temp 97.2 F 07/24/23 07:24 Pulse 78 07/24/23 07:24 Resp 18 07/24/23 07:24 BP 141/62 H 07/24/23 07:24 Pulse Ox 96 07/24/23 07:24 O2 Del Method Room Air 07/24/23 07:24 BMI result Body Mass Index 32.0 Const: General: no acute distress GI: Other: abdomen is soft and nontender Objective Data Labs 07/24/23 05:49 07/22/23 05:56 Labs: Procedures Date of Service Date of Service: 07/24/23 Progress Note: A&P Assessment and plan (1) Diverticulosis of colon with hemorrhage of large intestine: Status: Acute Assessment and Plan: He appears stable. I have advised him to call my office and schedule elective outpatient colonoscopy. He understands this. I recommend avoiding aspirin and nsaids indefinitely. Time Spent With Patient Time: Total time managing care of this patient today ____ minutes. Quality Stroke Does the patient have a stroke diagnosis?: No VTE Prior VTE?: No VTE Risk Level:: Medical - low VTE Device Contraindication: N/A - Device Ordered VTE Drug Contraindication: Treatment Not Indicated
--- NOTE | 2023-07-24 13:10 | PM.DS ---
DS: Providers Provider Date of Service: 07/24/23 Date of admission: 07/21/23 01:13 Date of discharge: 07/24/23 Primary care physician: Gabbi Washington MD Consults: 07/21/23 07:40 Consult to Gastroenterology Routine Consulting Provider: Ryan Mendez Reason for consultation: gi bleed Attending physician on discharge: Gelacio Hauser Discharging clinician: Millicent Lockwood DS: Diagnosis Discharge Diagnosis (1) Diverticulosis of colon with hemorrhage of large intestine: Status: Acute DS: Summary Hospital Course Hospital Course: From H&P on day of admission 62-year-old male with past medical history of HLD, HTN, current embolization of a brain aneurysm in 2016 on aspirin comes into the hospital complaints of multiple episodes of bloody bowel movements. Patient reports no abdominal pain, no nausea or vomiting, headache, no change in vision, no dizziness, no chest pain, no shortness of breath. Patient reports that he went to the bathroom and had 4-5 episodes of bright red blood per rectum. All other review of system otherwise negative To the ED patient hemodynamically stable no significant abnormal vitals Labs are significant for WBC count of 9.9, hemoglobin of 13.9 dropped to 11.5, lactic acid of 3.7 that resolved after fluids, Stool occult blood positive Abdomen pelvic CT bleed study shows no evidence of contrast extravasation to suggest active hemorrhage although study is limited. Cholelithiasis without acute cholecystitis, also a subcentimeter hypodense focus is seen in the renal intra polar region too small to characterize 62-year-old male past medical history of HTN, HLD, brain aneurysm status post coiling on aspirin comes into the hospital with complaints of GI bleed Acute GI bleed with blood loss stool occult positive, likely Diverticular bleed. aspirin stopped. Bleeding scan negative. s/p 3 units PRBC. seen by GI, recommend outpatient colonoscopy and stop aspirin indefinitely. No further bleeding noted. Recommend to stop aspirin and avoid NSAIDs, outpatient follow up with neurosurgeon to discuss GI recommendation to stop aspirin indefinitely. Discussed in detail with patient. Recommended to return to the ED with any further episodes of bleeding. Time Spent with Patient Time attestation: Total time managing care of this patient today ____ minutes. Discharge coordination time: Greater than 30 minutes Quality: Safe Use of Opioids Does Pt have an Active Cancer Diagnosis on the Problem List?: No Quality: Stroke Does the patient have a stroke diagnosis?: No Physical Exam Vital Signs: Vital Signs: Last Vital Signs Temp 97.2 F 07/24/23 07:24 Pulse 78 07/24/23 07:24 Resp 18 07/24/23 07:24 BP 141/62 H 07/24/23 07:24 Pulse Ox 96 07/24/23 07:24 O2 Del Method Room Air 07/24/23 07:24 BMI result Body Mass Index 32.0 Const: General: cooperative, comfortable, no acute distress, alert and awake Nutritional Appearance: overweight Orientation/consciousness: patient oriented x3 Resp: Effort & Inspection: normal respiratory effort, able to speak in complete sentences, no respiratory distress and no use of accessory muscles Cardio: Rate: regular rate GI: Inspection: No distended Palpation (GI): Soft to palpation and nontender Neuro: General: patient oriented x3, moves all extremities and CN's II-XI intact bilaterally DS: Data Data Completed and Pending Labs on day of discharge: Laboratory Results - last 24 hr 07/20/23 07/23/23 07/23/23 20:23 13:57 20:31 WBC RBC Hgb 9.5 L D Hct 27.8 L D MCV MCH MCHC RDW Plt Count MPV Immature Gran % (Auto) Neut % (Auto) Lymph % (Auto) [place] % (Auto) Eos % (Auto) Baso % (Auto) Lymph # (Auto) [place] # (Auto) Eos # (Auto) Baso # (Auto) Abs Immat Gran (auto) Absolute Neuts (auto) Absolute Nucleated RBC Nucleated RBC % (auto) POC Glucose 105 Hold Green Top Crossmatch See Detail 07/24/23 05:49 WBC 9.1 RBC 2.64 L Hgb 8.9 L Hct 25.9 L MCV 98.1 H MCH 33.7 H MCHC 34.4 RDW 15.7 Plt Count 177 MPV 9.9 Immature Gran % (Auto) 0.7 H Neut % (Auto) 66.7 Lymph % (Auto) 20.4 [place] % (Auto) 8.3 Eos % (Auto) 3.4 Baso % (Auto) 0.5 Lymph # (Auto) 1.9 [place] # (Auto) 0.8 Eos # (Auto) 0.3 Baso # (Auto) 0.1 Abs Immat Gran (auto) 0.06 H Absolute Neuts (auto) 6.1 Absolute Nucleated RBC 0.000 Nucleated RBC % (auto) 0.0 POC Glucose Hold Green Top See Note Crossmatch Discharge Plan Discharge Anticipated Discharge Date/Time: 07/24/23 13:06 Patient Disposition: Home, Self-Care Discharge Diagnosis: GI bleeding Referrals: Jan Mariano MD [Physician] - 1 Month Ryan Mendez MD [Physician] - 1 Week Po,Gabbi Farrell MD [Primary Care Provider] - 1 Week Discharge Medications: Continued ferrous sulfate [Feosol] 325 mg (65 mg iron) tablet 325 mg PO DAILY Qty: 30 3RF ascorbic acid (vitamin C) [Vitamin C] 500 mg tablet 500 mg PO DAILY Qty: 30 5RF lisinopril 20 mg tablet 20 mg PO DAILY Qty: 90 3RF cholecalciferol (vitamin D3) 1,250 mcg (50,000 unit) capsule 1,250 mcg PO QWEEK albuterol sulfate [ProAir HFA] 90 mcg/actuation HFA aerosol inhaler 2 puff inhalation Q4-6H PRN (Reason: Wheezing) albuterol sulfate 2.5 mg /3 mL (0.083 %) solution for nebulization 2.5 mg inhalation Q4-6H PRN (Reason: bronchospasm) Qty: 90 3RF Discontinued aspirin 81 mg tablet,chewable 1 tab PO DAILY Qty: 90 3RF No Action (DME) NEBULIZER See Rx Instructions .Route .MEDSUPPLY Qty: 1 0RF Rx Instructions: As directed (DME) A.I.R.S Nebulizer Replacement Kit See Rx Instructions .ROUTE .MEDSUPPLY Qty: 1 0RF Rx Instructions: As directed (DME) Medial Silvering Department Supervisor Knee brace See Rx Instructions .ROUTE .MEDSUPPLY Qty: 1 0RF Rx Instructions: n/a Discharge Orders: Discharge Order (Routine); Ordered 07/24/23 Ordered By: Millicent Lockwood Activity on Discharge: As tolerated Stand Alone Forms: Patient Portal Discharge page, Work/School Release Care Plan Goals: see below Health Concerns: GI bleeding Plan of Treatment: recommend to avoid Aspirin and all other NSAIDs (ibuprofen, motrin etc) stop taking aspirin and please call neurosurgeon and discuss recommendation from GI to stop aspirin indefinitely. recommend outpatient follow up with GI for colonoscopy recommend outpatient follow up with PCP if you develop any recurrent bleeding return to the ED for evaluation imaging incidentally showing enlarged prostate - recommend outpatient follow up with urology if you don't already have urologist Assessment: see discharge summary
--- NOTE | 2023-07-24 13:31 | MHC.CM.PN ---
Patient is discharged today, home self care. He will self transport home.
== END 2023-07-24 15:57 | disposition home or self-care (01) | DRG 244 ==
LOC: HO.ED 07-21 00:53 → HO.EDOVER 07-21 01:16 → HO.S3 07-21 07:37
PROVIDERS: Nurse Practitioner Acute Care; Admitting Provider Internal Medicine; Emergency Provider Emergency Medicine; PCP Internal Medicine; Visit Provider Physician Assistant Medical
DX: K57.31 Diverticulosis of large intestine without perforation or abscess with bleeding (principal); D62 Acute posthemorrhagic anemia; E83.51 Hypocalcemia; I10 Essential (primary) hypertension; E78.5 Hyperlipidemia, unspecified; Z79.899 Other long term (current) drug therapy
CPT/HCPCS: 36415; 74178; 78278; 80048; 80076; 82272; 82947; 83605; 83735; 85014; 85018; 85025; 85027; 85610; 86850; 86900; 86901; 86923; 93005; 99285; A9560; P9016; Q9967

== ENCOUNTER → 2023-07-21 01:13 | Outpatient (BNV) | payer OTHER, SELFPAY | PROVIDERS: Admitting Provider Internal Medicine; Emergency Provider Emergency Medicine; PCP Internal Medicine; Visit Provider Internal Medicine | DX: K57.31 Diverticulosis of large intestine without perforation or abscess with bleeding (principal) | CPT/HCPCS: 99223; 99232; 99239; 99499 ==

== ENCOUNTER 2023-07-31 10:20 | Outpatient (AMB) | payer OTHER, SELFPAY ==
--- NOTE | 2023-07-31 10:23 | MHC.PC.OV ---
Vital Signs 07/31/23 10:24 Height 5 ft 6 in Weight 200 lb BMI 32.3 BP 118/66 Blood Pressure Location Lt brachial Position Sitting Pulse 86 Pulse Source Pulse Oximeter Temp Source Skin Pulse Oximetry (%) 97 Oxygen Delivery Method Room Air Intake Visit Reasons: TCM follow up Intake Note: Patient is here for hospital discharge follow up. Patient was discharged from [facility] on 07/21-07/24. 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: No Allergies No Known Allergies Allergy (Verified 07/31/23 10:38) Medication List - Last Reconciled 07/31/23 by BEVERLY Allred albuterol sulfate 90 mcg/actuation (ProAir HFA) 2 puffs inhalation Q4-6H PRN albuterol sulfate 2.5 mg (3 mL) inhalation Q4-6H PRN ascorbic acid (vitamin C) (Vitamin C) 500 mg PO DAILY cholecalciferol (vitamin D3) 1,250 mcg PO QWEEK ferrous sulfate (Feosol) 325 mg PO DAILY lisinopril 20 mg PO DAILY [Medial Visual Merchandising Assistant Knee brace n/a] [NEBULIZER As directed] nebulizer accessories (A.I.R.S Nebulizer Replacement kit) As directed Tobacco use date assessed: 07/31/23 Dental Screening Dental Screen Date: 07/31/23 Did you have a dental visit in the last 12 months?: Yes Did you have a dental problem in the last 6 months where you did not have access to dental care?: No Was dental information given to patient?: Patient has dentist HPI TCM follow up HPI Details Patient is a 62-year-old male who presents today for TCM visit after being discharged from [facility]. Admission date 07/21/2023, discharge date 07/24/2023. Patient of Dr. Garcia Per hospital discharge summary: Hospital Course: From H&P on day of admission 62-year-old male with past medical history of HLD, HTN, current embolization of a brain aneurysm in 2016 on aspirin comes into the hospital complaints of multiple episodes of bloody bowel movements. Patient reports no abdominal pain, no nausea or vomiting, headache, no change in vision, no dizziness, no chest pain, no shortness of breath. Patient reports that he went to the bathroom and had 4-5 episodes of bright red blood per rectum. All other review of system otherwise negative To the ED patient hemodynamically stable no significant abnormal vitals Labs are significant for WBC count of 9.9, hemoglobin of 13.9 dropped to 11.5, lactic acid of 3.7 that resolved after fluids, Stool occult blood positive Abdomen pelvic CT bleed study shows no evidence of contrast extravasation to suggest active hemorrhage although study is limited. Cholelithiasis without acute cholecystitis, also a subcentimeter hypodense focus is seen in the renal intra polar region too small to characterize 62-year-old male past medical history of HTN, HLD, brain aneurysm status post coiling on aspirin comes into the hospital with complaints of GI bleed Acute GI bleed with blood loss stool occult positive, likely Diverticular bleed. aspirin stopped. Bleeding scan negative. s/p 3 units PRBC. seen by GI, recommend outpatient colonoscopy and stop aspirin indefinitely. No further bleeding noted. Recommend to stop aspirin and avoid NSAIDs, outpatient follow up with neurosurgeon to discuss GI recommendation to stop aspirin indefinitely. Discussed in detail with patient. Recommended to return to the ED with any further episodes of bleeding. Plan of Treatment: recommend to avoid Aspirin and all other NSAIDs (ibuprofen, motrin etc) stop taking aspirin and please call neurosurgeon and discuss recommendation from GI to stop aspirin indefinitely. recommend outpatient follow up with GI for colonoscopy recommend outpatient follow up with PCP if you develop any recurrent bleeding return to the ED for evaluation imaging incidentally showing enlarged prostate - recommend outpatient follow up with urology if you don't already have urologist 07/2023 CT/CT gi bleed abd pel wo/w IVcon IMPRESSION: 1. No evidence of contrast extravasation to suggest active hemorrhage though evaluation is slightly limited secondary to respiratory motion artifact on the gastrointestinal tract during arterial phase. 2. Cholelithiasis without acute cholecystitis. 3. Subcentimeter hypodense focus along the right renal interpolar region, too small to characterize though statistically representing a cyst. 4. Colonic diverticulosis without acute diverticulitis. 5. Small fat filled bilateral inguinal hernias. 6. Prostate is enlarged measuring 4.9 x 4.3 cm with mass effect upon the urinary bladder base. Today, patient denies any blood in stool since being discharged from the hospital. Reports normal bowel this morning. No fever or chills, no abdominal pain, no diarrhea or constipation. Patient reports that he spoke with his neurologist last Friday and was told to restart aspirin 81 mg daily 08/04/2023, patient reports that neurologist said the maximum amount of time he can be off aspirin is 2 weeks due to risk of stroke. Patient also reports that he will be having a follow-up with his neurologist Dr. Grover in future as well. Patient reports mild dizziness intermittent and he also returned to work. No shortness of breath or chest pain. Will refer patient urgently to GI for a colonoscopy and also referral to see Urology due to enlarged prostate on CT scan. Will repeat CBC and also order PSA. TCM TCM Information Date of Discharge 07/24/23 Discharged From [facility] Medical History History of diverticulosis Seasonal allergies Osteoarthritis of left knee Tubular adenoma of colon Hypertension Hypercholesterolemia Obesity (BMI 30-39.9) Brain aneurysm Asthma Surgical History History of knee surgery Hx of brain surgery Hx of colonoscopy History of inguinal hernia repair Family History Father Esophageal cancer Mother Diabetes Hypertension Stroke Maternal Uncle Throat cancer Social History Household Members: None Housing: Apartment Do you presently have visiting nurse or other home services: No Alcohol intake: current Alcohol intake frequency: a few times a month Patient Tobacco Use Status: Current someday Tobacco user Tobacco use type: Cigarette Cigarettes Per Day: 1 e-Cigarette/Vaping Use: Never Used Second Hand Smoke Exposure: No service: No Current occupational status: employed Current occupation: rt handed Cognitive needs: No Hearing needs: No Vision needs: No Questionnaire PHQ-9 Over the last 2 weeks, how often have you been bothered by any of the following problems? 1. Little interest or pleasure in doing things: not at all 2. Feeling down, depressed, or hopeless: not at all 3. Trouble falling or staying asleep, or sleeping too much: not at all 4. Feeling tired or having little energy: not at all 5. Poor appetite or overeating: not at all 6. Feeling bad about yourself - or that you are a failure or have let yourself or your family down: not at all 7. Trouble concentrating on things, such as reading the newspaper or watching television: not at all 8. Moving or speaking so slowly that other people could have noticed. Or the opposite - being so fidgety or restless that you have been moving around a lot more than usual: not at all 9. Thoughts that you would be better off or of hurting yourself in some way: not at all Total score: 0 Depression Screening Interpretation: Negative Depression Screening Done: Yes [id number] - PHQ-9 Billing: Yes Source: Developed by Drs. Ernesto Ogden, Onofre Brizuela and colleagues, with an educational rhona from [employer]. Thrive Questionnaire Date Thrive assessed: 07/21/23 AUDIT C Alcohol Use Questionnaire (AUDIT-C) 1. How often do you have a drink containing alcohol?: 2-3 times a week 2. How many drinks containing alcohol do you have on a typical day when you are drinking?: 1 or 2 3. How often do you have six or more drinks on one occasion?: Never Total Score: 3 Score Reviewed/Action Taken: Yes FELIX-7 AMB Questionnaire FELIX-7 Date FELIX - 7 assessed: 01/21/22 Feeling nervous, anxious, or on edge: 0 = Not at all Not being able to stop or control worryin = Not at all Worrying too much about different things: 0 = Not at all Trouble relaxin = Not at all Being so restless that it is hard to sit still: 0 = Not at all Becoming easily annoyed or irritable: 0 = Not at all Feeling afraid as if something awful might happen: 0 = Not at all Total FELIX-7 score (0-4 normal; 5-9 mild; 10-14 moderate; 15-21 severe): 0 Source: Developed by Drs. Ernesto Ogden, Onofre Brizuela and colleagues, with an educational rhona from [employer]. FELIX-7 Assessment Billing FELIX-7 Assessment Tool: FELIX-7 Assessment 75946 Review of Systems Const Denies body aches, Denies chills, Denies fever(s) and Denies headache(s) Eyes Denies change in vision ENT Reports dizziness (Intermittent), Denies otalgia, Denies headache(s), Denies nasal discharge, Denies sinus pain and Denies sore throat Card Denies chest pain, Denies edema, Denies lightheadedness and Denies dyspnea Resp Denies dyspnea and Denies wheezing GI Denies abdominal pain, Denies hematochezia, Denies constipation, Denies diarrhea, Denies nausea and Denies vomiting Denies dysuria Musc Denies myalgias Skin/Breast Denies rash Neuro Reports dizziness (Intermittent) and Denies headache(s) Aller/Immun Denies wheezing Physical exam (Primary Care) Vital Signs: Last Vital Signs Pulse 86 07/31/23 10:24 BP 118/66 07/31/23 10:24 Pulse Ox 97 07/31/23 10:24 Oxygen Delivery Method Room Air 07/31/23 10:24 BMI result Body Mass Index 32.3 Tobacco/Smoking Status: Tobacco use Status Tobacco use date assessed 07/31/23 07/31/23 10:29 Patient Tobacco Use Status Current someday Tobacco 07/31/23 10:23 Tobacco use type Cigarette 07/31/23 10:23 e-Cigarette/Vaping Use Never Used 07/31/23 10:23 PHQ-9: PHQ-9 Score PHQ-9: Total score 0 07/31/23 10:46 Depression Screening Interpretation: Negative Thrive Assessment: Date of Thrive Assessment Date Thrive assessed 07/21/23 07/31/23 10:23 Const General: cooperative and no acute distress Orientation/consciousness: patient oriented x3 HENMT Head: Yes normocephalic and Yes atraumatic Mouth: oropharynx normal and moist mucous membranes Throat: Yes posterior oropharynx normal Eyes General: appearance normal, both eyes and all related structures Neck Neck: Yes normal visual inspection, Yes full ROM and Yes no lymphadenopathy Resp Effort & Inspection: normal respiratory effort and able to speak in complete sentences Auscultation: clear to auscultation bilaterally, no crackles, no rales, no rhonchi and no wheezes Cardio Rate: regular rate Rhythm: regular rhythm Heart sounds: S1 normal heart sound present and S2 normal heart sound present GI Palpation (GI): Soft to palpation, not firm, nontender, no guarding, not rigid and no hepatosplenomegaly Auscultation: normal bowel sounds Skin General skin exam: no rashes or lesions noted Neuro General: patient oriented x3 and CN's II-XI intact bilaterally Gait exam (Neuro): Normal gait present Extrem General: Yes full ROM and No edema Assessment and Plan Assessment & Plan (1) Enlarged prostate: Code(s): N40.0 - Benign prostatic hyperplasia without lower urinary tract symptoms Plan: Referral to Urology for an evaluation and treatment PSA ordered (2) Diverticulosis of colon with hemorrhage of large intestine: Code(s): K57.31 - Diverticulosis of large intestine without perforation or abscess with bleeding Plan: Urgent referral to [facility] for a colonoscopy and follow-up after being discharged from the hospital Patient denies any blood in stool since being discharged from the hospital Signs and symptoms reviewed when to notify provider or go to the emergency department Per neurology patient is to restart aspirin 81 mg daily 08/04/2023 per patient Will repeat CBC (3) Hospital discharge follow-up: Code(s): Z09 - Encounter for follow-up examination after completed treatment for conditions other than malignant neoplasm Plan: Medications reconciled Patient improving Orders: Orders Complete Blood Count Auto Diff Today K57.31 - Diverticulosis of large intestine without perforation or abscess with bleeding Prostate Specific Antigen Today N40.0 - Benign prostatic hyperplasia without lower urinary tract symptoms Referrals Gastroenterology Referral K57.31 - Diverticulosis of large intestine without perforation or abscess with bleeding Urology Referral N40.0 - Benign prostatic hyperplasia without lower urinary tract symptoms Coding Level of Care Code TCM Mod MDM <= 7 Days Diagnoses Enlarged prostate N40.0 Diverticulosis of colon with hemorrhage of large intestine K57.31 Hospital discharge follow-up Z09 Additional Codes FELIX-7 Assessment Billing - FELIX-7 Assessment Tool: FELIX-7 Assessment [id number] ([id number])
[2023-07-31 10:24] VITALS: BP 118/66; PULSE 86; O2SAT 97; BMI 32.3
== END 2023-07-31 11:04 | disposition home or self-care (01) ==
PROVIDERS: PCP Internal Medicine; Visit Provider Nurse Practitioner Family
DX: N40.0 Benign prostatic hyperplasia without lower urinary tract symptoms (principal); K57.31 Diverticulosis of large intestine without perforation or abscess with bleeding; Z09 Encounter for follow-up examination after completed treatment for conditions other than malignant neoplasm
CPT/HCPCS: 99495

== ENCOUNTER 2023-08-30 10:13 | Outpatient (REF) | payer OTHER, SELFPAY ==
[2023-08-30 10:20] LABS: MANUAL DIFF FLAG NO
[2023-08-30 11:17] LABS: Basophils Absolute Auto 0.1 X10*3/uL (0.0-0.2); Basophils Percent Auto 0.7 % (0-2); Eosinophils Absolute Auto 0.2 X10*3/uL (0.0-0.4); Eosinophils Percent Auto 2.1 % (0-4); Hemoglobin 13.9 g/dl (14.0-18.0); Imm Gran Abs Auto 0.03 X10*3/uL (0.00-0.03); Imm Gran Pct Auto 0.3 % (0.0-0.4); Lymphocytes Absolute Auto 1.9 X10*3/uL (1.2-4.9); Lymphocytes Percent Auto 20.7 % (20-40); Mean Corpuscular HGB Conc 32.3 g/dl (31.0-36.0); Mean Corpuscular Hemoglobin 33.2 pg (27.0-33.0); Mean Corpuscular Volume 102.6 fL (80.0-98.0); Mean Platelet Volume 9.5 fL (9.4-12.4); Monocytes Absolute Auto 0.7 X10*3/uL (0.1-1.2); Monocytes Percent Auto 7.4 % (2-11); Neutrophils Absolute Auto 6.3 x10*3/uL (2.0-8.3); Neutrophils Percent Auto 68.8 % (45-73); Platelet Count 291 X10*3/uL (160-400); Red Blood Count 4.19 X10*6/uL (4.60-5.80); Red Cell Distribution Width 14.6 % (11.0-16.0); White Blood Count 9.2 X10*3/uL (4.8-10.8)
[2023-08-30 11:52] LABS: Prostate Specific Antigen 2.66 ng/mL (<0.05-4.0)
== END 2023-08-30 10:14 | disposition home or self-care (01) ==
LOC: HO.LAB 10:13
PROVIDERS: Absent Provider Nurse Practitioner Family; PCP Internal Medicine; Visit Provider Internal Medicine Gastroenterology
DX: Z12.5 Encounter for screening for malignant neoplasm of prostate (principal); K62.5 Hemorrhage of anus and rectum; N40.0 Benign prostatic hyperplasia without lower urinary tract symptoms; K57.31 Diverticulosis of large intestine without perforation or abscess with bleeding
CPT/HCPCS: 36415; 84153; 85025

== ENCOUNTER 2023-09-30 07:36 | Day surgery (SDC) | payer OTHER, SELFPAY ==
[2023-09-26 14:53] VITALS: BMI 32.9
--- NOTE | 2023-09-29 09:15 | HO.ANESPROP2 ---
Documented by User: Kassi Horvath NP 09/29/23 09:17 HPI - Anesthesia Eval Consult details Narrative: 63yo M for Colonoscopy PMFSH Active Problems Active Problems: All Active Problems (Updated 09/23/23 @ 12:39 by Gabbi Washington MD) Hospital discharge follow-up (Acute) Enlarged prostate (Acute) Diverticulosis of colon with hemorrhage of large intestine (Acute) Impaired glucose tolerance (Acute) Tear of meniscus of left knee (Acute) Lateral meniscus tear (Acute) Strain of left knee (Acute) Patellofemoral arthritis of left knee (Acute) Left knee pain (Acute) Sprain of left knee (Acute) Rash (Acute) Somatic dysfunction of right sacroiliac joint (Acute) Vision changes (Acute) Constipation (Acute) Lower leg laceration with complication (Acute) Anemia (Acute) Brain aneurysm (Acute) Osteoarthritis of left knee (Acute) Hypertension (Acute) Hypercholesterolemia (Acute) Obesity (BMI 30-39.9) (Acute) Asthma (Acute) Past Medical History Medical History History of diverticulosis Seasonal allergies Osteoarthritis of left knee Tubular adenoma of colon Hypertension Hypercholesterolemia Obesity (BMI 30-39.9) Brain aneurysm Asthma Family History Family History Father Esophageal cancer Mother Diabetes Hypertension Stroke Maternal Uncle Throat cancer Family history of problems with anesthesia: No Surgical History Surgical History History of knee surgery Hx of brain surgery Hx of colonoscopy History of inguinal hernia repair History of Problems with Anesthesia: No Social History Social History Household Members: None Housing: Apartment Do you presently have visiting nurse or other home services: No Alcohol intake: current Alcohol intake frequency: a few times a month Patient Tobacco Use Status: Current someday Tobacco user Tobacco use type: Cigarette Cigarettes Per Day: 1 e-Cigarette/Vaping Use: Never Used Second Hand Smoke Exposure: No Advance Directives: No Advance Directives Information Provided: Yes service: No Current occupational status: employed Current occupation: rt handed Cognitive needs: No Hearing needs: No Vision needs: No Meds Allergies Allergy/AdvReac Type Severity Reaction Status Date / Time No Known Allergies Allergy Verified 07/31/23 10:38 Home Medications Medication Instructions Recorded Confirmed Last Taken Type albuterol sulfate 90 mcg/actuation 2 puff inhalation Q4-6H PRN 08/17/20 09/26/23 Unknown History aerosol inhaler (ProAir HFA) Wheezing cholecalciferol (vitamin D3) 1,250 1,250 mcg PO QWEEK 08/17/20 09/26/23 Unknown History mcg (50,000 unit) capsule montelukast 10 mg tablet 10 mg PO BEDTIME 09/26/23 09/26/23 Unknown History Exam Height,Weight and Vital Signs: Height 5 ft 7 in Weight 95.254 kg Pertinent Lab Results Pertinent Lab Results: Laboratory Tests 07/22/23 07/22/23 08/30/23 05:56 05:56 10:19 WBC Hgb Hct Plt Count 291 D Sodium 136 Potassium 4.1 Chloride 109 H Carbon Dioxide 23 BUN 12 Creatinine 0.69 08/30/23 10:19 WBC 9.2 Hgb 13.9 L D Hct 43.0 D Plt Count Sodium Potassium Chloride Carbon Dioxide BUN Creatinine Narrative Narrative: EKG 07/2023 Vent. Rate : 077 BPM Atrial Rate : 077 BPM P-R Int : 160 ms QRS Dur : 074 ms QT Int : 380 ms P-R-T Axes : 011 -01 036 degrees QTc Int : 430 ms Normal sinus rhythm Nonspecific T wave abnormality Abnormal ECG When compared with ECG of 21-JUN-2020 20:22, No significant change was found Assessment and Plan Assessment Anesthesia Assessment: Chart Reviewed Final Anesthetic Review Family History of Problems with Anesthesia: No History of Problems with Anesthesia: No Documented by User: Solange Romo MD 09/30/23 07:58 PMFSH Past Medical History Medical History History of diverticulosis Seasonal allergies Osteoarthritis of left knee Tubular adenoma of colon Hypertension Hypercholesterolemia Obesity (BMI 30-39.9) Brain aneurysm Asthma Family History Family History Father Esophageal cancer Mother Diabetes Hypertension Stroke Maternal Uncle Throat cancer Family history of problems with anesthesia: No Surgical History Surgical History History of knee surgery Hx of brain surgery Hx of colonoscopy History of inguinal hernia repair History of Problems with Anesthesia: No Social History Social History Household Members: None Housing: Apartment Do you presently have visiting nurse or other home services: No Alcohol intake: current Alcohol intake frequency: a few times a month Patient Tobacco Use Status: Current someday Tobacco user Tobacco use type: Cigarette Cigarettes Per Day: 1 e-Cigarette/Vaping Use: Never Used Second Hand Smoke Exposure: No Advance Directives: No Advance Directives Information Provided: Yes service: No Current occupational status: employed Current occupation: rt handed Cognitive needs: No Hearing needs: No Vision needs: No Meds Allergies Allergy/AdvReac Type Severity Reaction Status Date / Time No Known Allergies Allergy Verified 07/31/23 10:38 Home Medications Medication Instructions Recorded Confirmed Last Taken Type albuterol sulfate 90 mcg/actuation 2 puff inhalation Q4-6H PRN 08/17/20 09/26/23 Unknown History aerosol inhaler (ProAir HFA) Wheezing cholecalciferol (vitamin D3) 1,250 1,250 mcg PO QWEEK 08/17/20 09/26/23 Unknown History mcg (50,000 unit) capsule montelukast 10 mg tablet 10 mg PO BEDTIME 09/26/23 09/26/23 Unknown History Exam Airway Mallampati Class: II TM Dist: >3cm Neck ROM: Full Heart: rrr Lungs: cta Assessment and Plan Assessment Anesthesia Assessment: Anesthesia Plan Discussed Final Anesthetic Review Family History of Problems with Anesthesia: No History of Problems with Anesthesia: No NPO: Yes ASA Class: III Final Preanesthetic Review: No Changes in Pt Med Stat, Meds/Allgs Chart Reviewed, Consent Obtained/Reviewed and Anes Risks/Benef Reviewed Patient Risk: Intermediate Procedure Risk: Low Anesthetic Plan Anesthetic Plan: MAC: Disposition: Standard PACU
[2023-09-30] MEDS: Lactated Ringers 1,000 ML 100 ML IVCONT (07:53)
[2023-09-30 08:01] VITALS: BMI 32.9
[2023-09-30 08:03] VITALS: BP 148/76; PULSE 65; RESP 18; TEMP 36.6; O2SAT 99
[2023-09-30 09:11] VITALS: BP 120/65; PULSE 64; RESP 18; TEMP 36.3; O2SAT 99
--- NOTE | 2023-09-30 09:24 | OP_ITS ---
DATE OF SERVICE: 09/30/2023 SURGEON: Ryan Mendez MD INDICATIONS: GI bleeding. PREOPERATIVE DIAGNOSIS: POSTOPERATIVE DIAGNOSIS: PROCEDURE PERFORMED: Colonoscopy to the terminal ileum. ESTIMATED BLOOD LOSS: COMPLICATIONS: ANESTHESIA: Monitored anesthesia care. ASSISTANTS: SPECIMENS: DESCRIPTION OF PROCEDURE: A history and physical performed. The risks and benefits of the procedure were explained to the patient. Informed consent was obtained. The patient was placed in the left lateral decubitus position. A digital rectal exam was performed and was found to be normal. The Olympus pediatric videocolonoscope was introduced into the rectum and advanced to the cecum. The cecum was identified by transillumination, palpation, and identification of ileocecal valve. Examination was performed. The scope was removed. He tolerated the procedure well and was returned to Recovery in stable condition. FINDINGS: The terminal ileum was examined and appeared normal. The visualized colonic mucosa was normal. There was pandiverticulosis without evidence of diverticulitis. There was no rectal bleeding. No polyps were identified. The quality of the prep was good. IMPRESSION: Diverticulosis. RECOMMENDATIONS: 1. Follow up as needed. 2. Repeat colonoscopy is recommended in 10 years for average risk individuals. MD BENITA Chavez/ЕЛЕНА / [phone]
[2023-09-30 09:26] VITALS: BP 141/75; PULSE 53; RESP 18; TEMP 36.4; O2SAT 98
== END 2023-09-30 09:47 | disposition home or self-care (01) ==
PROVIDERS: PCP Internal Medicine; Visit Provider Internal Medicine Gastroenterology
PROC: 0DJD8ZZ Inspection of Lower Intestinal Tract, Via Natural or Artificial Opening Endoscopic (ICD-10-PCS; CPT 45378; principal; 2023-09-30 09:00)
DX: K57.30 Diverticulosis of large intestine without perforation or abscess without bleeding (principal); K62.5 Hemorrhage of anus and rectum; Z80.0 Family history of malignant neoplasm of digestive organs; I10 Essential (primary) hypertension; E78.00 Pure hypercholesterolemia, unspecified; J45.909 Unspecified asthma, uncomplicated; D64.9 Anemia, unspecified; F17.210 Nicotine dependence, cigarettes, uncomplicated; E66.9 Obesity, unspecified; Z68.32 Body mass index [BMI] 32.0-32.9, adult; Z79.82 Long term (current) use of aspirin; Z79.899 Other long term (current) drug therapy
CPT/HCPCS: 45378; J2704

== ENCOUNTER 2023-11-24 05:41 | Emergency (ER) | payer OTHER, SELFPAY ==
--- NOTE | ~2023-11-24 | XR_ITS ---
EXAMINATION: XR SHOULDER, LEFT CLINICAL INFORMATION: Pain COMPARISON: 06/22/2020 TECHNIQUE: Three views of the left shoulder. FINDINGS: Glenohumeral alignment is anatomic. No acute fracture is seen. The acromioclavicular joint is intact. XR/XR shoulder LT min 2V IMPRESSION: No acute findings identified.
[2023-11-24 05:45] VITALS: BP 172/94; PULSE 90; RESP 16; TEMP 36.9; O2SAT 98; BMI 28.9
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
[2023-11-24 07:06] VITALS: BP 129/78; PULSE 73; RESP 16; O2SAT 97
== END 2023-11-24 07:09 | disposition home or self-care (01) ==
PROVIDERS: Emergency Provider Emergency Medicine; PCP Internal Medicine
DX: S46.912A Strain of unspecified muscle, fascia and tendon at shoulder and upper arm level, left arm, initial encounter (principal); M25.512 Pain in left shoulder; F17.210 Nicotine dependence, cigarettes, uncomplicated; X58.XXXA Exposure to other specified factors, initial encounter; Y93.9 Activity, unspecified; Y92.410 Unspecified street and highway as the place of occurrence of the external cause; Y99.8 Other external cause status; Z79.899 Other long term (current) drug therapy
CPT/HCPCS: 73030; 99283

== ENCOUNTER 2024-03-08 16:58 | Outpatient (AMB) | payer OTHER, SELFPAY ==
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
[2024-03-08 17:06] VITALS: BP 126/70; PULSE 82; O2SAT 96; BMI 29.8
== END 2024-03-08 18:04 | disposition home or self-care (01) ==
PROVIDERS: PCP Internal Medicine; Visit Provider Internal Medicine
DX: E78.00 Pure hypercholesterolemia, unspecified (principal); I10 Essential (primary) hypertension; I67.1 Cerebral aneurysm, nonruptured; K57.31 Diverticulosis of large intestine without perforation or abscess with bleeding; R73.02 Impaired glucose tolerance (oral); J45.21 Mild intermittent asthma with (acute) exacerbation
CPT/HCPCS: 99214

== ENCOUNTER 2024-03-09 12:53 | Outpatient (REF) | payer OTHER, SELFPAY ==
[2024-03-09 13:07] LABS: MANUAL DIFF FLAG NO
[2024-03-09 14:11] LABS: Basophils Absolute Auto 0.1 X10*3/uL (0.0-0.2); Basophils Percent Auto 0.9 % (0-2); Eosinophils Absolute Auto 0.4 X10*3/uL (0.0-0.4); Hematocrit 45.5 % (42.0-52.0); Hemoglobin 15.3 g/dl (14.0-18.0); Imm Gran Abs Auto 0.03 X10*3/uL (0.00-0.03); Imm Gran Pct Auto 0.3 % (0.0-0.4); Lymphocytes Absolute Auto 2.1 X10*3/uL (1.2-4.9); Lymphocytes Percent Auto 22.9 % (20-40); Mean Corpuscular HGB Conc 33.6 g/dl (31.0-36.0); Mean Corpuscular Hemoglobin 34.2 pg (27.0-33.0); Mean Corpuscular Volume 101.6 fL (80.0-98.0); Mean Platelet Volume 9.5 fL (9.4-12.4); Monocytes Absolute Auto 0.7 X10*3/uL (0.1-1.2); Monocytes Percent Auto 7.2 % (2-11); Neutrophils Absolute Auto 6.1 x10*3/uL (2.0-8.3); Neutrophils Percent Auto 64.7 % (45-73); Platelet Count 282 X10*3/uL (160-400); Red Blood Count 4.48 X10*6/uL (4.60-5.80); White Blood Count 9.3 X10*3/uL (4.8-10.8)
[2024-03-09 14:46] LABS: Estimated Average Glucose 108 mg/dL; Hemoglobin A1c % 5.4 % (<6.0)
[2024-03-09 15:25] LABS: Alanine Aminotransferase 12 U/L (0-40); Albumin Level 4.2 g/dL (3.5-5.0); Alkaline Phosphatase 49 U/L (39-117); Anion Gap 15 (12-20); Aspartate Amino Transferase 18 U/L (5-37); Bilirubin Total 0.7 mg/dL (0.0-1.0); Blood Urea Nitrogen 14 mg/dL (9-16); Calcium 9.6 mg/dL (8.4-10.2); Carbon Dioxide 27 mmol/L (22-29); Chloride 105 mmol/L (96-108); Cholesterol 245 mg/dL (<200); Estimated Glomerular Filt Rate > 60; Glucose Random 90 mg/dL (60-115); HDL Cholesterol 86 mg/dL (>40); LDL Cholesterol Calculated 145 mg/dL (<100); Sodium 143 mmol/L (135-145); Total Protein 7.3 g/dL (6.5-8.0); Triglycerides 73 mg/dL (<150)
[2024-03-09 15:29] LABS: Folate 7.6 ng/mL (> or = 4.0); Prostate Specific Antigen Scr 2.26 ng/mL (<0.05-4.0); Vitamin B12 498 pg/mL (200-900)
[2024-03-09 15:32] LABS: Thyroid Stimulating Hormone 1.25 uIU/mL (0.32-4.0)
== END 2024-03-09 12:54 | disposition home or self-care (01) ==
LOC: HO.LAB 12:53
PROVIDERS: PCP Internal Medicine; Visit Provider Internal Medicine
DX: R73.02 Impaired glucose tolerance (oral) (principal); Z12.5 Encounter for screening for malignant neoplasm of prostate; E78.00 Pure hypercholesterolemia, unspecified
CPT/HCPCS: 36415; 80053; 80061; 82607; 82746; 83036; 84153; 84439; 84443; 85025

== ENCOUNTER 2024-04-13 13:50 | Outpatient (AMB) | payer OTHER, SELFPAY ==
[2024-04-13 13:55] VITALS: BP 130/90; PULSE 76; O2SAT 98; BMI 31.0
--- NOTE | 2024-04-13 13:55 | MHC.OFFWIV ---
Intake Vital Signs 04/13/24 13:55 Height 5 ft 9 in Weight 210 lb BMI 31.0 BP 130/90 H Blood Pressure Location Lt brachial Position Sitting Pulse 76 Pulse Source Pulse Oximeter Pulse Oximetry (%) 98 Oxygen Delivery Method Room Air Intake Visit Reasons: EP Lower back pain/knee pain Intake Note: pt is here for lower back pain that radiates down the leg and feels like numbness and tingling. Patient Tobacco Use Status: Current someday Tobacco user Allergies No Known Allergies Allergy (Verified 04/13/24 15:00) Medication List - Last Reconciled 04/13/24 by BEVERLY Doyle albuterol sulfate 90 mcg/actuation (ProAir HFA) 2 puffs inhalation Q4-6H PRN albuterol sulfate 2.5 mg (3 mL) inhalation Q4-6H PRN ascorbic acid (vitamin C) (Vitamin C) 500 mg PO DAILY aspirin (Adult Low Dose Aspirin) 81 mg PO DAILY budesonide-formoterol 160-4.5 mcg/actuation (Symbicort) 2 puffs inhalation BID cholecalciferol (vitamin D3) 1,250 mcg PO QWEEK ferrous sulfate (Feosol) 325 mg PO DAILY lidocaine 5% 1 patch topical DAILY lisinopril 20 mg PO DAILY [Medial Head Of Measurement & Insights Knee brace n/a] [NEBULIZER As directed] nebulizer accessories (A.I.R.S Nebulizer Replacement kit) As directed Do you need a note to return to daycare/school/sports/work: No HPI HPI Comments History of Present Illness Details Patient is a 63-year-old male in today for sick visit Patient reports that for past 3 days he has developed right lower back tenderness with pain radiating down his right limb. 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 Denies any trauma to the area. Denies any tingling numbness or saddle numbness. Patient has utilized ibuprofen and Tylenol with mild effect. Patient has history of the same 3 years prior. [facility] Medical History History of diverticulosis Seasonal allergies Osteoarthritis of left knee Tubular adenoma of colon Hypertension Hypercholesterolemia Obesity (BMI 30-39.9) Brain aneurysm Asthma Surgical History History of knee surgery Hx of brain surgery Hx of colonoscopy History of inguinal hernia repair Family History Father Esophageal cancer Mother Diabetes Hypertension Stroke Maternal Uncle Throat cancer Social History Household Members: None Housing: Apartment Do you presently have visiting nurse or other home services: No Alcohol intake: current Alcohol intake frequency: a few times a month Patient Tobacco Use Status: Current someday Tobacco user Tobacco use type: Cigarette Cigarettes Per Day: 1 e-Cigarette/Vaping Use: Never Used Second Hand Smoke Exposure: No service: No Current occupational status: employed Current occupation: rt handed Cognitive needs: No Hearing needs: No Vision needs: No Review of Systems Const All systems reviewed & are unremarkable except as noted in HPI and below Denies chills and Denies fever(s) Card Denies chest pain and Denies dyspnea Resp Denies dyspnea GI Denies diarrhea, Denies nausea and Denies vomiting Musc Reports arthralgias (Right SI) and Reports radiating pain into limb (Right lower extremity) Physical Exam Vital Signs: Last Vital Signs Pulse 76 04/13/24 13:55 BP 130/90 H 04/13/24 13:55 Pulse Ox 98 04/13/24 13:55 Oxygen Delivery Method Room Air 04/13/24 13:55 BMI result Body Mass Index 31.0 Const Other: Appearance: Alert.? Oriented X3.? No acute distress.? Head: Normocephalic. Respiratory: No respiratory distress.? Breath sounds normal.? Extremities: No lower extremity edema. 5/5 strength to bilateral upper and lower extremities Back: No midline tenderness, no C-spine tenderness, Limited range of motion to flexion/extension and rotation. + straight leg test right side. Neuro: Oriented X 3.? No motor deficit.? No sensory deficit. CN 2-12 intact Assessment & Plan Assessment & Plan (1) SI (sacroiliac) pain: Comment: Will obtain SI joint x-ray. Will give patient prednisone meloxicam Patient has been educated to rest and ice the affected area. Patient has been educated to utilize proper footwear well work. Will offer physical therapy. Code(s): M53.3 - Sacrococcygeal disorders, not elsewhere classified Plan: Take your medications as prescribed. If you were prescribed antibiotics today, it is important that you take your medication to their entirety, do not skip any doses, do not finish them early. Follow-up with your primary care provider this week. Present to the emergency department with new or worsening symptoms. Such as fevers, chills, chest pain, shortness of breath, nausea, vomiting, dizziness, headache, vision changes, lethargy In case of emergency call 911 Orders: Orders XR sacroiliac joint 1-2V Today M53.3 - Sacrococcygeal disorders, not elsewhere classified Medications: New prednisone 50 mg PO DAILY 5 tabs 0RF meloxicam 15 mg PO DAILY PRN 10 tabs 0RF sciatica Coding Level of Care Code Est Pt Level 3 (44057) Diagnoses SI (sacroiliac) pain M53.3 Time Spent (min) 25
== END 2024-04-13 15:12 | disposition home or self-care (01) ==
PROVIDERS: PCP Internal Medicine; Visit Provider Nurse Practitioner Primary Care
DX: M53.3 Sacrococcygeal disorders, not elsewhere classified (principal)
CPT/HCPCS: 99213

== ENCOUNTER 2024-04-13 14:31 | Outpatient (REF) | payer OTHER, SELFPAY ==
--- NOTE | ~2024-04-13 | XR_ITS ---
EXAMINATION: XR SACROILIAC JOINTS CLINICAL INFORMATION: Sacrococcygeal disorder COMPARISON: None available. TECHNIQUE: 3 views of the sacroiliac joints FINDINGS: Right SI joint is asymmetrically fused and sclerotic. Mild left SI sclerosis but no effusion. Sacralization lowest lumbar type vertebral body. Mild left hip joint narrowing. Bony pelvis appears intact. 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
== END 2024-04-13 14:32 | disposition home or self-care (01) ==
LOC: HO.HMGCX 14:31
PROVIDERS: PCP Internal Medicine; Visit Provider Nurse Practitioner Primary Care
DX: M53.3 Sacrococcygeal disorders, not elsewhere classified (principal)
CPT/HCPCS: 72200

== ENCOUNTER 2024-04-30 14:44 | Outpatient (AMB) | payer OTHER, SELFPAY ==
[2024-04-30 15:08] VITALS: BP 130/68; PULSE 88; O2SAT 98; BMI 29.1
--- NOTE | 2024-04-30 15:08 | A.OFFPC_ITS ---
Vital Signs 04/30/24 15:08 Height 5 ft 9 in Weight 197 lb BMI 29.1 BP 130/68 Blood Pressure Location Lt brachial Position Sitting Pulse 88 Pulse Source Pulse Oximeter Pulse Oximetry (%) 98 Oxygen Delivery Method Room Air Intake Visit Reasons: Right knee pain Allergies No Known Allergies Allergy (Verified 04/30/24 15:08) Medication List - Last Reconciled 04/30/24 by Coco Cole PA-C albuterol sulfate 90 mcg/actuation (ProAir HFA) 2 puffs inhalation Q4-6H PRN albuterol sulfate 2.5 mg (3 mL) inhalation Q4-6H PRN ascorbic acid (vitamin C) (Vitamin C) 500 mg PO DAILY aspirin (Adult Low Dose Aspirin) 81 mg PO DAILY budesonide-formoterol 160-4.5 mcg/actuation (Symbicort) 2 puffs inhalation BID cholecalciferol (vitamin D3) 1,250 mcg PO QWEEK ferrous sulfate (Feosol) 325 mg PO DAILY lidocaine 5% 1 patch topical DAILY lisinopril 20 mg PO DAILY [Medial Procurement Buyer Knee brace n/a] meloxicam 15 mg PO DAILY PRN [NEBULIZER As directed] nebulizer accessories (A.I.R.S Nebulizer Replacement kit) As directed prednisone 50 mg PO DAILY Tobacco use date assessed: 03/08/24 Dental Screening Dental Screen Date: 03/08/24 HPI Right knee pain HPI Details 63 year old male with past history of as thma, hypercholesterolemia, hypertension, impaired glucose tolerance last seen by Dr. Washington 03/08/2024 coming in for an acute visit. In review of the notes patient was seen in the walk on 04/13/24 for lower back and knee pain, XR was taken and patient was given prednisone and Meloxicam for the pain. SI joint XR showed SI sclerosis with fusion on the right. Knee XR was not taken. He has been having right knee pain which has been ongoing for some time. He has not been seen recently for the right knee. The pain originates in the knee and radiates up to the hip. The hip pain that he presented to the walk in with has resolved at this time. He has had left knee surgery in the past. He has been using heating pads, insoles, and pain relievers with some mild relief but still having pain on the front of the right knee. [facility] Medical History History of diverticulosis Seasonal allergies Osteoarthritis of left knee Tubular adenoma of colon Hypertension Hypercholesterolemia Obesity (BMI 30-39.9) Brain aneurysm Asthma Surgical History History of knee surgery Hx of brain surgery Hx of colonoscopy History of inguinal hernia repair Family History Father Esophageal cancer Mother Diabetes Hypertension Stroke Maternal Uncle Throat cancer Social History Household Members: None Housing: Apartment Do you presently have visiting nurse or other home services: No Alcohol intake: current Alcohol intake frequency: a few times a month Patient Tobacco Use Status: Current someday Tobacco user Tobacco use type: Cigarette Cigarettes Per Day: 1 e-Cigarette/Vaping Use: Never Used Second Hand Smoke Exposure: No service: No Current occupational status: employed Current occupation: rt handed Cognitive needs: No Hearing needs: No Vision needs: No Questionnaire PHQ-9 Over the last 2 weeks, how often have you been bothered by any of the following problems? 1. Little interest or pleasure in doing things: not at all 2. Feeling down, depressed, or hopeless: not at all 3. Trouble falling or staying asleep, or sleeping too much: not at all 4. Feeling tired or having little energy: not at all 5. Poor appetite or overeating: not at all 6. Feeling bad about yourself - or that you are a failure or have let yourself or your family down: not at all 7. Trouble concentrating on things, such as reading the newspaper or watching television: not at all 8. Moving or speaking so slowly that other people could have noticed. Or the opposite - being so fidgety or restless that you have been moving around a lot more than usual: not at all 9. Thoughts that you would be better off or of hurting yourself in some way: not at all Total score: 0 Depression Screening Interpretation: Negative Depression Screening Done: Yes 40377 - PHQ-9 Billing: Yes Source: Developed by Drs. Ernesto Ogden, Elise Onofre Monteiro and colleagues, with an educational rhoan from [employer]. Thrive Questionnaire Date Thrive assessed: 03/08/24 AUDIT C Alcohol Use Questionnaire (AUDIT-C) 1. How often do you have a drink containing alcohol?: Monthly or less 2. How many drinks containing alcohol do you have on a typical day when you are drinking?: 1 or 2 3. How often do you have six or more drinks on one occasion?: Never Total Score: 1 FELIX-7 AMB Questionnaire FELIX-7 Date FELIX - 7 assessed: 03/08/24 Source: Developed by Drs. Ernesto Ogden, Onofre Brizuela and colleagues, with an educational rhona from [employer]. Review of Systems Const Denies body aches, Denies chills, Denies fever(s), Denies headache(s) and Denies poor appetite Eyes Reports no additional complaints ENT Denies dizziness and Denies headache(s) Card Denies chest pain and Denies dyspnea Resp Denies dyspnea GI Denies fecal incontinence Denies urinary incontinence Musc Details: right knee pain and mild swelling Reports no additional complaints, Denies abnormal gait and Reports arthralgias Skin/Breast Reports system reviewed and no additional complaints, except as documented Neuro Denies abnormal gait, Denies dizziness and Denies headache(s) Psych Reports no additional complaints Physical exam (Primary Care) Vital Signs: Last Vital Signs Pulse 88 04/30/24 15:08 BP 130/68 04/30/24 15:08 Pulse Ox 98 04/30/24 15:08 Oxygen Delivery Method Room Air 04/30/24 15:08 BMI result Body Mass Index 29.1 Tobacco/Smoking Status: Tobacco use Status Tobacco use date assessed 03/08/24 04/30/24 15:12 Patient Tobacco Use Status Current someday Tobacco 04/30/24 15:12 Tobacco use type Cigarette 04/30/24 15:12 e-Cigarette/Vaping Use Never Used 04/30/24 15:12 PHQ-9: PHQ-9 Score PHQ-9: Total score 0 04/30/24 15:12 Depression Screening Interpretation: Negative Thrive Assessment: Date of Thrive Assessment Date Thrive assessed 03/08/24 04/30/24 15:12 Const General: cooperative, healthy appearing, comfortable and no acute distress Orientation/consciousness: patient oriented x3 Resp Effort & Inspection: normal respiratory effort Auscultation: clear to auscultation bilaterally, no crackles, no rales, no rhonchi and no wheezes Cardio Rate: regular rate Rhythm: regular rhythm Skin General skin exam: no rashes or lesions noted Neuro General: patient oriented x3 Gait exam (Neuro): Normal gait present Extrem General: Yes normal to inspection, Yes full ROM and No edema Right lower extremity: normal to inspection, full ROM and knee Details: no tenderness and no swelling Left lower extremity: normal to inspection, full ROM and knee Details: normal to inspection and tenderness (anterior); no edema Psych Affect: normal affect Attitude: cooperative Insight: Good insight present (Psych) Judgement: Good judgement present (Psych) Assessment and Plan Assessment & Plan (1) Right knee pain: Code(s): M25.561 - Pain in right knee Plan: Strength and sensation intact in bilateral lower extremities. Right knee x-ray ordered. Meloxicam refilled to use as needed for pain instructed to take with food. Continue to use heat as needed and exercise as tolerated. Plan Thank you for allowing me to participate in the care of this patient. I personally spent 20 minutes reviewing, examining and charting on this patient. If x-ray shows arthritis, patient is interested in being referred to Orthopedics Orders: Orders XR knee RT 4V Today M25.561 - Pain in right knee Medications: Refilled meloxicam 15 mg PO DAILY PRN 20 tabs 0RF sciatica Coding Level of Care Code Est Pt Level 4 (05127) Diagnoses Right knee pain M25.561
== END 2024-04-30 15:32 | disposition home or self-care (01) ==
PROVIDERS: PCP Internal Medicine
DX: M25.561 Pain in right knee (principal)
CPT/HCPCS: 99214

== ENCOUNTER 2024-04-30 15:32 | Outpatient (REF) | payer OTHER, SELFPAY ==
--- NOTE | ~2024-04-30 | XR_ITS ---
EXAMINATION: XR KNEE, RIGHT CLINICAL INFORMATION: Pain right knee, patient states pain starting in hip, radiating to knee for 3 weeks, no known injury, history of left knee arthritis. COMPARISON: 08/20/2021. TECHNIQUE: Four views of the right knee. FINDINGS: Mild narrowing of the medial compartment with tiny medial marginal osteophytes. Trace joint effusion. Focal periosteal reaction along the [id number] third of the shaft of the fibula. XR/XR knee RT 4V IMPRESSION: 1. Mild degenerative changes medial compartment. 2. Focal periosteal reaction along the [id number] third of the shaft of the fibula. Correlation with clinical exam recommended.
== END 2024-04-30 15:33 | disposition home or self-care (01) ==
LOC: HO.XRAY 15:32
PROVIDERS: PCP Internal Medicine
DX: M25.561 Pain in right knee (principal)
CPT/HCPCS: 73564

== ENCOUNTER 2024-10-19 05:42 | Inpatient (IN) | payer OTHER, SELFPAY ==
[2024-10-19] VITALS (8 sets, daily range): BP systolic 101–158; BP diastolic 60–94; PULSE 76–101; RESP 12–18; TEMP 36.2–37.2; O2SAT 96–99; BMI 31.2; BMI 29.3
--- NOTE | ~2024-10-19 | CT_ITS ---
EXAMINATION: CT ABDOMEN AND PELVIS WITHOUT AND WITH CONTRAST CLINICAL INFORMATION: Right red blood per rectum x5 COMPARISON: CT abdomen and pelvis without and with IV contrast 07/20/2023. TECHNIQUE: Multidetector volumetric imaging was performed of the abdomen and pelvis before and after the IV administration of 85 mL of Omnipaque 350 intravenous contrast. Sagittal and coronal reformatted images were obtained on the technologist's workstation. This CT examination was performed using dose optimization techniques as appropriate, variously including the following: *Automated exposure control *Adjustment of mA and/or kV according to patient size (this includes techniques or standardized protocols for targeted exams where dose is matched to indication/reason for exam; i.e. extremities or head) *Use of iterative reconstruction technique DLP: 1417 mGy-cm FINDINGS: LUNG BASES: The visualized lung bases are unremarkable. Heart size is normal. LIVER, GALLBLADDER, AND BILIARY TREE: The liver is normal in size, shape, and attenuation. No focal hepatic lesion or biliary ductal dilatation is present. There are punctate dependent radiopaque gallstone. No wall thickening seen.. PANCREAS: Unremarkable SPLEEN: Unremarkable ADRENAL GLANDS: Unremarkable KIDNEYS AND URETERS: The kidneys are normal in size, shape, and attenuation. No hydronephrosis, hydroureter, or calculi seen. No perinephric stranding. BLADDER: Unremarkable GASTROINTESTINAL TRACT: There is scattered stool, diverticuli and gas seen throughout the colon without distention or pericolic fat stranding. The small bowel loops are normal caliber. Appendix is normal caliber. There is no intraluminal contrast extravasation seen to suspect any site of GI bleed. ABDOMINAL WALL: No significant hernia is appreciated. LYMPH NODES: Normal VASCULAR: Unremarkable PELVIC VISCERA: The prostate gland is mildly enlarged. OSSEOUS STRUCTURES: There are degenerative disc changes L4-5, L5-S1 disc level. No aggressive lytic or sclerotic process seen there is a anterior bridging osteophyte along the right SI joint CT/CT gi bleed abd pel wo/w IVcon IMPRESSION: No evidence of intraluminal contrast extravasation seen in the GI tract to suspect site of GI bleed. There is extensive colonic diverticulosis without diverticulitis. Gallstone. Fleischner guidelines were followed. Electronically signed by: Arsalan Lopez MD 10/19/2024 09:30 AM [facility]
--- NOTE | 2024-10-19 06:14 | ED.GIBLEED ---
HPI - GI Bleed General Chief complaint: GI Bleed Stated complaint: stomach pain Time Seen by Provider: 10/19/24 06:14 Source: patient Mode of arrival: ambulatory Limitations: no limitations History of Present Illness ED Provider: Dr. Rick Johnson HPI Narrative: 64-year-old male with past medical history of asthma, HLD, HTN, embolization of a brain aneurysm in 2016 on aspirin, diverticulosis with GI bleed who comes into the hospital complaints of multiple episodes of bloody bowel movements. The patient states that this is 3rd episode of bright red blood per rectum and he was followed by Dr. Mendez. The patient states that yesterday around 14:30 hours he started to have a gurgling sensation in his abdomen and he states that this is preceded his previous lower GI bleeds. He states that he then developed bright red blood per rectum. He states he was had at least 5 episodes of passing bright red blood. He was last episode was at 05:00 hours and he described the amount of blood as moderate. He states that he was feeling lightheaded and dizzy therefore he came to the emergency department for evaluation. He denies having abdominal pain. The patient states that he was continuing to take his aspirin for his brain aneurysm. Patient was last admitted for lower GI bleed on 07/21/2023 for lower GI bleed. Patient had a CT angiogram GI bleed study that did not reveal any extravasation of contrast and it was felt that the patient had a large intestine bleed secondary to his diverticulosis. Patient states that he had 1 unit of blood transfused during that last admission. Related Data Home Medications ?Medication ?Instructions ?Recorded ?Confirmed albuterol sulfate 90 mcg/actuation 2 puff inhalation Q4-6H PRN 08/17/20 04/30/24 aerosol inhaler (ProAir HFA) Wheezing cholecalciferol (vitamin D3) 1,250 1,250 mcg PO QWEEK 08/17/20 04/30/24 mcg (50,000 unit) capsule Previous Rx's ?Medication ?Instructions ?Recorded ferrous sulfate 325 mg (65 mg 325 mg PO DAILY #30 tabs 08/20/20 iron) tablet (Feosol) ascorbic acid (vitamin C) 500 mg 500 mg PO DAILY #30 tabs 01/18/21 tablet (Vitamin C) albuterol sulfate 2.5 mg/3 mL 2.5 mg (3 mL) inhalation Q4-6H PRN 03/02/21 (0.083 %) solution for nebulization bronchospasm #90 mL nebulizer accessories (A.I.R.S #1 ea 03/02/21 Nebulizer Replacement kit) NEBULIZER #1 ea 04/09/21 Medial Cna Instructor Knee brace #1 ea 11/05/21 aspirin 81 mg tablet,delayed 81 mg PO DAILY #90 tabs 09/23/23 release (Adult Low Dose Aspirin) lidocaine 5 % topical patch 1 patch topical DAILY #15 ea 11/24/23 budesonide-formoterol HFA 160 2 puff inhalation BID #10.2 grams 03/08/24 mcg-4.5 mcg/actuation aerosol inhaler (Symbicort) lisinopril 20 mg tablet 20 mg PO DAILY #90 tabs 04/01/24 prednisone 50 mg tablet 50 mg PO DAILY #5 tabs 04/13/24 meloxicam 15 mg tablet 15 mg PO DAILY PRN sciatica #20 06/02/24 tabs Allergies Allergy/AdvReac Type Severity Reaction Status Date / Time No Known Allergies Allergy Verified 10/19/24 05:58 Review of Systems Review of Systems: Yes all other systems are reviewed and are negative PMFSH Past Medical History PMF Narrative: Social history: The patient does smoke cigarettes. He states that he drinks 2 glasses of renan daily. He occasionally smokes marijuana. Medical History History of diverticulosis Seasonal allergies Osteoarthritis of left knee Tubular adenoma of colon Hypertension Hypercholesterolemia Obesity (BMI 30-39.9) Brain aneurysm Asthma Surgical History History of knee surgery Hx of brain surgery Hx of colonoscopy History of inguinal hernia repair Family History Family History Father Esophageal cancer Mother Diabetes Hypertension Stroke Maternal Uncle Throat cancer Social History Social History Household Members: None Housing: Apartment Do you presently have visiting nurse or other home services: No Alcohol intake: current Alcohol intake frequency: a few times a month Patient Tobacco Use Status: Current someday Tobacco user Tobacco use type: Cigarette Cigarettes Per Day: 1 e-Cigarette/Vaping Use: Never Used Second Hand Smoke Exposure: No Advance Directives: No Advance Directives Information Provided: Yes Do you have a plan to hurt others: No Plan service: No Current occupational status: employed Current occupation: rt handed Cognitive needs: No Hearing needs: No Vision needs: No Physical Exam Vital Signs: Vital Signs: Last Vital Signs Temp 98.6 F 10/19/24 07:39 Pulse 76 10/19/24 07:39 Resp 12 10/19/24 07:39 BP 131/75 10/19/24 07:39 Pulse Ox 98 10/19/24 07:39 O2 Del Method Room Air 10/19/24 07:39 BMI result Body Mass Index 31.2 Vital signs revealed an elevated heart rate of 101, elevated blood pressure of 159/94. Exam: General: Awake, alert in no distress Head: Normocephalic, atraumatic EENT: PERRL, Lids normal, sclera normal, conjunctiva normal, nose normal , ears normal, throat without erythema or exudates Neck: Supple, no adenopathy Lung: breath sounds symmetric, no wheezing, rales or rhonchi Chest: symmetric movement, nontender Heart: regular rate and rhythm, normal S1, S2 no murmurs or rubs Abdomen: soft, non-tender, nondistended, normal bowel sounds Rectal: Red stool which was strongly Hemoccult positive Back: no vertebral tenderness, no CVAT Extremities: no deformities, moves all extremities symmetrically Neuro: Awake, alert, oriented, normal speech, cranial nerves intact, moves all extremities symmetrically Psych: Pleasant, cooperative Medical Decision Making Medical Decision Making MDM Narrative: 64-year-old male with past medical history of asthma, HLD, HTN, embolization of a brain aneurysm in 2016 on aspirin, diverticulosis with GI bleed who comes into the hospital complaints of multiple episodes of bloody bowel movements since 14:30 hours yesterday with his last episode being at 05:00 hours this morning. He describes the last episode of bleeding as being a moderate amount of blood associated with feeling lightheaded and dizziness. Patient denied abdominal pain. Patient was last admitted on 07/21/2023 for lower large intestine GI bleed secondary to diverticulosis. Vital signs revealed an elevated heart rate and an elevated blood pressure. Abdominal exam revealed no tenderness. Rectal exam revealed bright red stool which was Hemoccult positive. Differential diagnosis: ?Includes but is not limited to diverticular bleed, internal hemorrhoid bleeding, colonic polyp, AVM,, anemia, electrolyte abnormalities Following evaluation was ordered: CBC, CMP, PT/INR, PTT, lipase, magnesium, occult stool, type and screen, COVID-19, influenza, RSV, CT abdominal angiogram GI bleed protocol with and without IV contrast Course: 07:15 My interpretation patient's laboratory evaluation is as follows: Microcytic anemia with an H&H of 11.9 and 33.8 with an MCV of 100.6. This is compared to 03/09/2024 when the patient's H&H was 15.3 and 45.5 with an elevated MCV of 101.6. He elevated MCV and drop in his H&H may be secondary to his alcohol use disorder. However, the drop in H&H may be secondary to significant lower GI bleed. PT/INR PTT were normal. BUN was slightly elevated at 19 with a normal creatinine of 0.82. Glucose was elevated 166. Lipase was normal. COVID-19, influenza and RSV you were normal At this time, I do not think the patient needs a transfusion however, I will trend the patient's H&H q.2 hours x2 (at 08:30 hours and 10:30 hours) while he was here in the emergency department. At the end of my shift, the patient's care was turned over to my colleague, Dr. Cunningham. Admission/Observation Consideration of admission/observation: Escalation of care including admission/observation considered (Yes) Lab Data MDM Lab Attestation statement: I reviewed the patient's lab results. 10/19/24 06:31 10/19/24 06:31 Labs: Lab Results 10/19/24 10/19/24 10/19/24 Range/Units 06:31 06:33 07:27 WBC 9.8 (4.8-10.8) X10*3/uL RBC 3.36 L D (4.60-5.80) X10*6/uL Hgb 11.9 L D (14.0-18.0) g/dl Hct 33.8 L D (42.0-52.0) % MCV 100.6 H (80.0-98.0) fL MCH 35.4 H (27.0-33.0) pg MCHC 35.2 (31.0-36.0) g/dl RDW 12.1 (11.0-16.0) % Plt Count 257 (160-400) X10*3/uL MPV 8.9 L (9.4-12.4) fL Immature Gran % (Auto) 0.6 H (0.0-0.4) % Neut % (Auto) 69.3 (45-73) % Lymph % (Auto) 20.3 (20-40) % [place] % (Auto) 6.8 (2-11) % Eos % (Auto) 2.3 (0-4) % Baso % (Auto) 0.7 (0-2) % Lymph # (Auto) 2.0 (1.2-4.9) X10*3/uL [place] # (Auto) 0.7 (0.1-1.2) X10*3/uL Eos # (Auto) 0.2 (0.0-0.4) X10*3/uL Baso # (Auto) 0.1 (0.0-0.2) X10*3/uL Abs Immat Gran (auto) 0.06 H (0.00-0.03) X10*3/uL Absolute Neuts (auto) 6.8 (2.0-8.3) x10*3/uL Absolute Nucleated RBC 0.000 (0.0-0.012) X10*3/uL Nucleated RBC % (auto) 0.0 (0.0-0.2) /100WBC PT 11.4 (10.9-12.4) SEC INR 1.0 (0.9-1.1) APTT 27.8 (26.0-36.8) SEC Sodium 138 (135-145) mmol/L Potassium 3.9 (3.3-5.1) mmol/L Chloride 106 (96-108) mmol/L Carbon Dioxide 23 (22-29) mmol/L Anion Gap 13 (12-20) BUN 19 H (9-16) mg/dL Creatinine 0.82 (0.5-1.4) mg/dL Estim Creat Clear Calc 103.4 Estimated GFR > 60 Random Glucose 166 H (60-115) mg/dL Calcium 8.3 L D (8.4-10.2) mg/dL Magnesium 1.7 (1.6-2.6) mg/dL Total Bilirubin 0.9 (0.0-1.0) mg/dL AST 30 (5-37) U/L ALT 22 (0-40) U/L Alkaline Phosphatase 41 (39-117) U/L Total Protein 6.3 L (6.5-8.0) g/dL Albumin 3.7 (3.5-5.0) g/dL Lipase 20 (8-78) U/L Stool Occult Blood POSITIVE (NEGATIVE) Influenza Type A (PCR) NEGATIVE (Negative) Influenza Type B (PCR) NEGATIVE (Negative) RSV RNA Qual (PCR) NEGATIVE (Negative) SARS-CoV-2 RNA (RT-PCR) NEGATIVE (Negative) Blood Type O Positive Antibody Screen NEGATIVE External Record Review External record reviewed: Inpatient record Chronic Conditions Patient?s care impacted by: Hypertension Critical Care Time Critical Care Time Critical Care Time: Yes Total Critical Care Time: 45 Attestation: Critical Care: The patient was critically ill with a high probability of imminent or life threatening deterioration. I spent greater than 30 minutes of discontinuous time evaluating the patient,delivering critical care at the bedside, discussing and evaluating pertinent data with consultants. Critical care time does not include time spent performing separately billable procedures or teaching. Total time spent performing critical care was 45 minutes. Discharge Plan Discharge Clinical Impression: Acute lower gastrointestinal bleeding, Anemia, macrocytic, Alcohol use disorder Patient Disposition: Still a Patient Prescriptions: No Action ferrous sulfate [Feosol] 325 mg (65 mg iron) tablet 325 mg PO DAILY Qty: 30 3RF ascorbic acid (vitamin C) [Vitamin C] 500 mg tablet 500 mg PO DAILY Qty: 30 5RF aspirin [Adult Low Dose Aspirin] 81 mg tablet,delayed release (DR/EC) 81 mg PO DAILY Qty: 90 3RF lisinopril 20 mg tablet 20 mg PO DAILY Qty: 90 3RF meloxicam 15 mg tablet 15 mg PO DAILY PRN (Reason: sciatica) Qty: 20 0RF lidocaine 5 % adhesive patch,medicated 1 patch topical DAILY Qty: 15 0RF Rx Instructions: leave on most painful area for up to 12 hrs cholecalciferol (vitamin D3) 1,250 mcg (50,000 unit) capsule 1,250 mcg PO QWEEK albuterol sulfate [ProAir HFA] 90 mcg/actuation HFA aerosol inhaler 2 puff inhalation Q4-6H PRN (Reason: Wheezing) (DME) NEBULIZER See Rx Instructions .Route .MEDSUPPLY Qty: 1 0RF Rx Instructions: As directed albuterol sulfate 2.5 mg /3 mL (0.083 %) solution for nebulization 2.5 mg inhalation Q4-6H PRN (Reason: bronchospasm) Qty: 90 3RF (DME) A.I.R.S Nebulizer Replacement Kit See Rx Instructions .ROUTE .MEDSUPPLY Qty: 1 0RF Rx Instructions: As directed budesonide-formoterol [Symbicort] 160-4.5 mcg/actuation HFA aerosol inhaler 2 puff inhalation BID Qty: 10.2 4RF prednisone 50 mg tablet 50 mg PO DAILY Qty: 5 0RF (DME) Medial Cna Instructor Knee brace See Rx Instructions .ROUTE .MEDSUPPLY Qty: 1 0RF Rx Instructions: n/a Print Language: Haitian
[2024-10-19 06:39] LABS: MANUAL DIFF FLAG NO
[2024-10-19 06:41] LABS: Basophils Absolute Auto 0.1 X10*3/uL (0.0-0.2); Basophils Percent Auto 0.7 % (0-2); Eosinophils Absolute Auto 0.2 X10*3/uL (0.0-0.4); Eosinophils Percent Auto 2.3 % (0-4); Hematocrit 33.8 % (42.0-52.0); Hemoglobin 11.9 g/dl (14.0-18.0); Imm Gran Abs Auto 0.06 X10*3/uL (0.00-0.03); Imm Gran Pct Auto 0.6 % (0.0-0.4); Lymphocytes Percent Auto 20.3 % (20-40); Mean Corpuscular HGB Conc 35.2 g/dl (31.0-36.0); Mean Corpuscular Hemoglobin 35.4 pg (27.0-33.0); Mean Corpuscular Volume 100.6 fL (80.0-98.0); Mean Platelet Volume 8.9 fL (9.4-12.4); Monocytes Absolute Auto 0.7 X10*3/uL (0.1-1.2); Monocytes Percent Auto 6.8 % (2-11); Neutrophils Absolute Auto 6.8 x10*3/uL (2.0-8.3); Neutrophils Percent Auto 69.3 % (45-73); Platelet Count 257 X10*3/uL (160-400); Red Blood Count 3.36 X10*6/uL (4.60-5.80); Red Cell Distribution Width 12.1 % (11.0-16.0); White Blood Count 9.8 X10*3/uL (4.8-10.8)
[2024-10-19 06:59] LABS: Alanine Aminotransferase 22 U/L (0-40); Albumin Level 3.7 g/dL (3.5-5.0); Alkaline Phosphatase 41 U/L (39-117); Anion Gap 13 (12-20); Aspartate Amino Transferase 30 U/L (5-37); Bilirubin Total 0.9 mg/dL (0.0-1.0); Blood Urea Nitrogen 19 mg/dL (9-16); Calcium 8.3 mg/dL (8.4-10.2); Carbon Dioxide 23 mmol/L (22-29); Chloride 106 mmol/L (96-108); Creatinine Clr Calc Pharmacy 103.4; Estimated Glomerular Filt Rate > 60; Glucose Random 166 mg/dL (60-115); Lipase 20 U/L (8-78); Magnesium 1.7 mg/dL (1.6-2.6); Potassium 3.9 mmol/L (3.3-5.1); Sodium 138 mmol/L (135-145); Total Protein 6.3 g/dL (6.5-8.0)
[2024-10-19 07:05] LABS: Prothrombin Time 11.4 SEC (10.9-12.4)
[2024-10-19 07:08] LABS: Partial Thromboplastin Time 27.8 SEC (26.0-36.8)
[2024-10-19 07:17] LABS: Influenza A PCR NEGATIVE (Negative); Influenza B PCR NEGATIVE (Negative); Resp Syncy Virus RNA Qual PCR NEGATIVE (Negative); SARS COV2 PCR INHOUSE NEGATIVE (Negative)
[2024-10-19 07:34] LABS: OBS Int Ctl Valid YES; OBS1 POSITIVE (NEGATIVE)
[2024-10-19] MEDS: iohexoL 350 MG/ML 100 ML INFUS..BTL IV (08:42)
--- NOTE | 2024-10-19 10:03 | PHA.MEDREC ---
Addendum entered by Octaviano Rodriguez 10/19/24 10:12: reviewed Original Note: Pharmacy Consult ? Medication Reconciliation Pharmacy has completed the medication reconciliation. Confirmed medications with patient. Patient confirmed he is only taking the Aspirin 81mg tab and Lisinopril 20mg tab once daily and thats it. He confirmed he was getting the Vitamin C, Vitamin D3 and Ferrous Sulfate mail ordered from his daughter who lives in [place] but states he is not taking them anymore. He confirmed he also has the Albuterol Sulfate 2.5mg/3mL nebulization solution and Albuterol Sulfate 90mcg inhaler at home that he has as needed for Wheezing or Shortness of Breath. He confirmed he took his medications yesterday.
--- NOTE | 2024-10-19 10:12 | PC.NURSE ---
patient has been resting quietly in room, resp even and unlabored. patient has not had any episodes of bloody stool/diarrhea since being in ER. VSS
[2024-10-19 10:37] LABS: Hematocrit 32.3 % (42.0-52.0); Hemoglobin 11.3 g/dl (14.0-18.0)
--- NOTE | 2024-10-19 13:59 | PM.IMHP ---
History of Present Illness Date of Service: 10/19/24 Chief Complaint: Lower GI bleed 4-year-old male with past medical history of asthma, HLD, HTN, embolization of a brain aneurysm in 2016 on aspirin, diverticulosis with GI bleed who comes into the hospital complaints of multiple episodes of bloody bowel movements. The patient states that this is 3rd episode of bright red blood per rectum and he was followed by Dr. Mendez. The patient states that yesterday around 14:30 hours he started to have a gurgling sensation in his abdomen and he states that this is preceded his previous lower GI bleeds. He states that he then developed bright red blood per rectum. He states he was had at least 5 episodes of passing bright red blood. He was last episode was at 05:00 hours and he described the amount of blood as moderate. He states that he was feeling lightheaded and dizzy therefore he came to the emergency department for evaluation. He denies having abdominal pain. The patient states that he was continuing to take his aspirin for his brain aneurysm. Patient was last admitted for lower GI bleed on 07/21/2023 for lower GI bleed. Patient had a CT angiogram GI bleed study that did not reveal any extravasation of contrast and it was felt that the patient had a large intestine bleed secondary to his diverticulosis. ER Hemoglobin stable CTA scan GI protocol failed to demonstrate any acute bleeding. Admission requested Review of Systems Review of Systems: Denies chest pain Denies shortness of breath Denies nausea vomiting diarrhea Denies fever chills PMFSH Medical History History of diverticulosis Seasonal allergies Osteoarthritis of left knee Tubular adenoma of colon Hypertension Hypercholesterolemia Obesity (BMI 30-39.9) Brain aneurysm Asthma Family History Father Esophageal cancer Mother Diabetes Hypertension Stroke Maternal Uncle Throat cancer Surgical History History of knee surgery Hx of brain surgery Hx of colonoscopy History of inguinal hernia repair Social History Household Members: None Housing: Apartment Do you presently have visiting nurse or other home services: No Alcohol intake: current Alcohol intake frequency: a few times a month Patient Tobacco Use Status: Current someday Tobacco user Tobacco use type: Cigarette Cigarettes Per Day: 1 e-Cigarette/Vaping Use: Never Used Second Hand Smoke Exposure: No Advance Directives: No Advance Directives Information Provided: Yes Do you have a plan to hurt others: No Plan service: No Current occupational status: employed Current occupation: rt handed Cognitive needs: No Hearing needs: No Vision needs: No Meds Allergies Allergy/AdvReac Type Severity Reaction Status Date / Time No Known Allergies Allergy Verified 10/19/24 05:58 Active Medications: Current Medications Acetaminophen (Acetaminophen 325 Mg Tablet) 650 mg PO Q6H PRN PRN Reason: Pain, Mild 1-3,fever,headache Albuterol Sulfate (Albuterol Sulfate (0.083%) 2.5 Mg/3 Ml Vial.Neb) 2.5 mg INHALE Q4-6H PRN PRN Reason: bronchospasm Calcium Carbonate (Calcium Carbonate 750 Mg Tab.Chew) 750 mg PO Q4H PRN PRN Reason: Heartburn Lactated Ringer's (Lr) 1,000 mls @ 100 mls/hr IVCONT .Q10H EMMA Lisinopril (Lisinopril 20 Mg Tablet) 20 mg PO DAILY EMMA; Protocol Magnesium Hydroxide (Milk Of Magnesia 30 Ml Oral.Susp) 30 ml PO DAILY PRN PRN Reason: Constipation Melatonin (Melatonin 3 Mg Tablet) 6 mg PO BEDTIME PRN PRN Reason: Insomnia Sodium Chloride (0.9 % Sodium Chloride Flush 3 Ml Syringe) 3 ml IVFLUSH QSHIFT EMMA Home Medications ?Medication ?Instructions ?Recorded ?Confirmed ?Last Taken ?Type albuterol sulfate 90 mcg/actuation 2 puff inhalation Q4-6H PRN 08/17/20 10/19/24 Unknown History aerosol inhaler (ProAir HFA) Wheezing Physical Exam Vital Signs and Narrative: Vital Signs: Last Vital Signs Temp 98.9 F 10/19/24 09:29 Pulse 77 10/19/24 09:29 Resp 16 10/19/24 09:29 BP 101/65 10/19/24 09:29 Pulse Ox 96 10/19/24 09:29 O2 Del Method Room Air 10/19/24 09:29 BMI result Body Mass Index 31.2 Const: Other: Awake alert no acute distress Resp: Other: Clear to auscultation bilaterally no rales rhonchi or wheezes Cardio: Other: No S4; positive S1-S2; no S3 murmurs rubs or gallops GI: Other: Soft nontender nondistended normoactive bowel sounds Neuro: Other: Cranial nerves 2-12 grossly intact as tested. Motor is 5/5 all extremities. Sensation is intact. Cognition appropriate Extrem: Other: No edema bilaterally Results Labs 10/19/24 10:31 10/19/24 06:31 Labs: Laboratory Results - last 24 hr 10/19/24 10/19/24 10/19/24 06:31 06:33 07:27 MCV 100.6 H MCH 35.4 H MCHC 35.2 RDW 12.1 Plt Count 257 MPV 8.9 L Immature Gran % (Auto) 0.6 H Neut % (Auto) 69.3 Lymph % (Auto) 20.3 [place] % (Auto) 6.8 Eos % (Auto) 2.3 Baso % (Auto) 0.7 Lymph # (Auto) 2.0 [place] # (Auto) 0.7 Eos # (Auto) 0.2 Baso # (Auto) 0.1 Abs Immat Gran (auto) 0.06 H Absolute Neuts (auto) 6.8 Absolute Nucleated RBC 0.000 Nucleated RBC % (auto) 0.0 PT 11.4 INR 1.0 APTT 27.8 Anion Gap 13 Estim Creat Clear Calc 103.4 Estimated GFR > 60 Random Glucose 166 H Calcium 8.3 L D Magnesium 1.7 Total Bilirubin 0.9 AST 30 ALT 22 Alkaline Phosphatase 41 Total Protein 6.3 L Albumin 3.7 Lipase 20 Stool Occult Blood POSITIVE Influenza Type A (PCR) NEGATIVE Influenza Type B (PCR) NEGATIVE RSV RNA Qual (PCR) NEGATIVE SARS-CoV-2 RNA (RT-PCR) NEGATIVE Blood Type O Positive Antibody Screen NEGATIVE Imaging Radiologist's Impressions: Impressions Abdomen/Pelvis CT 10/19/24 08:17 IMPRESSION: No evidence of intraluminal contrast extravasation seen in the GI tract to suspect site of GI bleed. There is extensive colonic diverticulosis without diverticulitis. Gallstone. Fleischner guidelines were followed. Electronically signed by: Arsalan Lopez MD 10/19/2024 09:30 AM [facility] Assessment and Plan (1) Acute lower gastrointestinal bleeding: Status: Acute (2) Anemia: Qualifiers: Anemia type: iron deficiency Iron deficiency anemia type: other iron deficiency Qualified Code(s): D50.8 - Other iron deficiency anemias Status: Acute (3) Hypertension: Qualifiers: Hypertension type: essential hypertension Qualified Code(s): I10 - Essential (primary) hypertension Status: Acute Plan 64-year-old male with history of recurrent rectal bleeding secondary to diverticular bleed presents to the emergency room after to frankly bloody stools. Prior to this episode he has not had any bloody stools in some time. He states last colonoscopy 1 year ago. Hemoglobin stable. Bleeding scan failed to demonstrate acute lower GI bleed 1. Lower GI bleed -stable at this time -hold aspirin -clear liquid diet -GI consult -daily CBC 2. Hypertension -acceptable control on current therapies -adjust as indicated 3. Mild intermittent asthma -stable and well compensated Full code Pneumatics Patient will require at least 2 midnights going forward of inpatient stay to monitor hemoglobin and for specialty consultation. This can not be achieved a lesser acute setting Quality Stroke Does the patient have a stroke diagnosis?: No VTE Prior VTE?: No VTE Risk Level:: Medical - moderate - high VTE Device Contraindication: N/A - Device Ordered VTE Drug Contraindication: Treatment Not Indicated
--- NOTE | 2024-10-19 15:55 | P.CNGI_ITS ---
History of Present Illness Data of Consult Service Date: 10/19/24 Requesting physician: Guero Barnes Primary Care Provider: Gabbi Washington MD [facility] Reason for consult: LGI bleeding 64 YM with asthma, HLD, HTN, embolization of a brain aneurysm in 2016 on aspirin, hx of diverticular bleed [place] [facility] [place] with complaints of multiple episodes of bloody bowel movements. The patient states that this is 3rd episode of bright red blood per rectum and he was followed by Dr. Mendez. The patient states that yesterday around 14:30 hours he had a soda and a sandwich and noted a gurgling sensation in his abdomen (similar symptoms prior to his previous lower GI bleeds). Pt reports he developed bright red blood per rectum (at least 5 episodes of passing moderate amounts - 1/2 to 1 cup - of bright red blood - last episode was at 05:00 am today). Bleeding subsided at 11 pm last night and he woke up at 4 am today and had another episode of bleeding and denies further bleeding since 05:00 am today. He states that he was feeling lightheaded and dizzy therefore he came to the emergency department for evaluation. He denies having abdominal pain. The patient states that he was continuing to take his aspirin for his brain aneurysm. Pt admits to smoking and drinking a few shots of renan with his meals. Patient was last admitted for lower GI bleed on 07/21/2023 for lower GI bleed. 09/30/23 Colonoscopy was performed by Dr. Mendez which showed p andiverticulosis without evidence of diverticulitis. There was no rectal bleeding. No polyps were identified. Pt denies known family history of colon polyps or GI malignancy. His Mom had diverticulosis. ER: Labs showed H & H was 11.9 & 33.8. Repeat labs after 4 hrs were 11.3 & 32.3 Patient was admitted for further management. 10/19/24 CT ANGIOGRAM SHOWED: No evidence of intraluminal contrast extravasation seen in the GI tract to suspect site of GI bleed. There is extensive colonic diverticulosis without diverticulitis. Gallstone. Review of Systems 2 Review of Systems: Yes all other systems are reviewed and are negative PMFSH Past Medical History Medical History History of diverticulosis Seasonal allergies Osteoarthritis of left knee Tubular adenoma of colon Hypertension Hypercholesterolemia Obesity (BMI 30-39.9) Brain aneurysm Asthma Family History Family History Father Esophageal cancer Mother Diabetes Hypertension Stroke Maternal Uncle Throat cancer Surgical History Surgical History History of knee surgery Hx of brain surgery Hx of colonoscopy History of inguinal hernia repair Social History Social History Household Members: None Housing: Apartment Do you presently have visiting nurse or other home services: No Alcohol intake: current Alcohol intake frequency: a few times a month Patient Tobacco Use Status: Current someday Tobacco user Tobacco use type: Cigarette Cigarettes Per Day: 1 e-Cigarette/Vaping Use: Never Used Second Hand Smoke Exposure: No service: No Current occupational status: employed Current occupation: rt handed Cognitive needs: No Hearing needs: No Vision needs: No Meds Allergies Allergy/AdvReac Type Severity Reaction Status Date / Time No Known Allergies Allergy Verified 10/19/24 05:58 Active Medications: Current Medications Acetaminophen (Acetaminophen 325 Mg Tablet) 650 mg PO Q6H PRN PRN Reason: Pain, Mild 1-3,fever,headache Albuterol Sulfate (Albuterol Sulfate (0.083%) 2.5 Mg/3 Ml Vial.Neb) 2.5 mg INHALE Q4H PRN PRN Reason: bronchospasm Calcium Carbonate (Calcium Carbonate 750 Mg Tab.Chew) 750 mg PO Q4H PRN PRN Reason: Heartburn Lactated Ringer's (Lr) 1,000 mls @ 100 mls/hr IVCONT .Q10H EMMA Lisinopril (Lisinopril 20 Mg Tablet) 20 mg PO DAILY EMMA; Protocol Magnesium Hydroxide (Milk Of Magnesia 30 Ml Oral.Susp) 30 ml PO DAILY PRN PRN Reason: Constipation Melatonin (Melatonin 3 Mg Tablet) 6 mg PO BEDTIME PRN PRN Reason: Insomnia Sodium Chloride (0.9 % Sodium Chloride Flush 3 Ml Syringe) 3 ml IVFLUSH QSHIFT EMMA Home Medications ?Medication ?Instructions ?Recorded ?Confirmed ?Last Taken ?Type albuterol sulfate 90 mcg/actuation 2 puff inhalation Q4-6H PRN 08/17/20 10/19/24 Unknown History aerosol inhaler (ProAir HFA) Wheezing Physical Exam 2 Vital Signs: Vital Signs: Last Vital Signs Temp 97.1 F 10/19/24 14:16 Pulse 79 10/19/24 14:16 Resp 17 10/19/24 14:16 BP 125/60 10/19/24 14:16 Pulse Ox 98 10/19/24 14:16 O2 Del Method Room Air 10/19/24 14:16 BMI result Body Mass Index 31.2 Const: General: healthy appearing and no acute distress Nutritional Appearance: obese Orientation/consciousness: patient oriented x3 L imitations: no limitations HEENT: Head: Yes normal to inspection Ears: hearing grossly normal bilaterally Eyes: Sclerae: sclerae normal Pupils: Equal, round and reactive pupils present Neck: Neck: Yes normal visual inspection Chest: Chest palpation & inspection: normal inspection of the chest Resp: Effort & Inspection: normal respiratory effort Auscultation: clear to auscultation bilaterally Cardio: Palpation: normal PMI Rate: regular rate Rhythm: regular rhythm Heart sounds: S1 normal heart sound present, S2 normal heart sound present and no murmurs GI: Inspection: Yes obesity Palpation (GI): Soft to palpation, nontender and No hepatosplenomegaly present Auscultation: normal bowel sounds Rectal Exam - Male: Yes deferred Skin: General skin exam: no rashes or lesions noted Neuro: General: patient oriented x3, gait normal and moves all extremities Cranial nerves: Yes Equal, round and reactive pupils present Psych: Appearance: grossly normal Mental Status: mental status grossly normal Results Labs 10/19/24 10:31 10/19/24 06:31 Labs: Short CBC 10/19/24 10/19/24 Range/Units 06:31 10:31 WBC 9.8 (4.8-10.8) X10*3/uL Hgb 11.9 L D 11.3 L (14.0-18.0) g/dl Hct 33.8 L D 32.3 L (42.0-52.0) % Plt Count 257 (160-400) X10*3/uL BMP 10/19/24 06:31 Sodium 138 Potassium 3.9 Chloride 106 Carbon Dioxide 23 BUN 19 H Creatinine 0.82 Calcium 8.3 L D Liver Function 10/19/24 Range/Units 06:31 Total Bilirubin 0.9 (0.0-1.0) mg/dL AST 30 (5-37) U/L ALT 22 (0-40) U/L Alkaline Phosphatase 41 (39-117) U/L Albumin 3.7 (3.5-5.0) g/dL Assessment and Plan (1) Acute lower gastrointestinal bleeding: Status: Acute (2) Diverticulosis: Status: Acute Plan 64 YM with asthma, HLD, HTN, embolization of a brain aneurysm in 2016 on aspirin, hx of diverticular bleed [place] [facility] [place] with complaints of multiple episodes of bloody bowel movements. The patient states that this is 3rd episode of bright red blood per rectum and he was followed by Dr. Mendez. The patient states that yesterday around 14:30 hours he had a soda and a sandwich and noted a gurgling sensation in his abdomen (similar symptoms prior to his previous lower GI bleeds). Pt reports he developed bright red blood per rectum (at least 5 episodes of passing moderate amounts - 1/2 to 1 cup - of bright red blood - last episode was at 05:00 am today). Bleeding subsided at 11 pm last night and he woke up at 4 am today and had another episode of bleeding and denies further bleeding since 05:00 today. 09/30/23 Colonoscopy was performed by Dr. Mendez which showed p andiverticulosis without evidence of diverticulitis. There was no rectal bleeding. No polyps were identified. LGI bleeding is likely from diverticular source. Patient not likely to have large polyps or colon mass given negative colonoscopy a year ago. RECOMMENDATIONS: 1. Start a clear liquid diet and advance to regular diet in the am if no further bleeding. 2. Repeat colonoscopy not needed since pt had a negative colonoscopy a year ago. Procedures Date of Service Date of Service: 10/19/24
[2024-10-19] MEDS: Lactated Ringers 1,000 ML 100 ML IVCONT (17:22)
[2024-10-19] MEDS: 0.9 % Sodium Chloride Flush 3 ML SYRINGE IVFLUSH (17:24)
[2024-10-19] MEDS: Albuterol Sulfate (0.083%) 2.5 MG/3 ML VIAL.NEB INHALE (19:24)
[2024-10-20] MEDS: Lactated Ringers 1,000 ML 100 ML IVCONT (01:08)
[2024-10-20 04:00] VITALS: BP 120/64; PULSE 65; RESP 18; TEMP 36.9; O2SAT 98
[2024-10-20 06:28] LABS: MANUAL DIFF FLAG NO
[2024-10-20 06:36] LABS: Basophils Percent Auto 0.5 % (0-2); Eosinophils Absolute Auto 0.2 X10*3/uL (0.0-0.4); Eosinophils Percent Auto 2.5 % (0-4); Hematocrit 28.2 % (42.0-52.0); Hemoglobin 9.8 g/dl (14.0-18.0); Imm Gran Abs Auto 0.04 X10*3/uL (0.00-0.03); Imm Gran Pct Auto 0.5 % (0.0-0.4); Lymphocytes Absolute Auto 1.5 X10*3/uL (1.2-4.9); Lymphocytes Percent Auto 18.8 % (20-40); Mean Corpuscular HGB Conc 34.8 g/dl (31.0-36.0); Mean Corpuscular Hemoglobin 35.3 pg (27.0-33.0); Mean Corpuscular Volume 101.4 fL (80.0-98.0); Mean Platelet Volume 9.4 fL (9.4-12.4); Monocytes Absolute Auto 0.6 X10*3/uL (0.1-1.2); Monocytes Percent Auto 7.3 % (2-11); Neutrophils Absolute Auto 5.7 x10*3/uL (2.0-8.3); Neutrophils Percent Auto 70.4 % (45-73); Platelet Count 211 X10*3/uL (160-400); Red Blood Count 2.78 X10*6/uL (4.60-5.80); Red Cell Distribution Width 11.9 % (11.0-16.0)
[2024-10-20 06:52] LABS: Alanine Aminotransferase 17 U/L (0-40); Albumin Level 3.3 g/dL (3.5-5.0); Alkaline Phosphatase 35 U/L (39-117); Anion Gap 11 (12-20); Aspartate Amino Transferase 25 U/L (5-37); Bilirubin Total 0.9 mg/dL (0.0-1.0); Blood Urea Nitrogen 11 mg/dL (9-16); Calcium 8.3 mg/dL (8.4-10.2); Carbon Dioxide 24 mmol/L (22-29); Chloride 107 mmol/L (96-108); Creatinine Clr Calc Pharmacy 114.4; Estimated Glomerular Filt Rate > 60; Glucose Random 100 mg/dL (60-115); Sodium 138 mmol/L (135-145); Total Protein 5.5 g/dL (6.5-8.0)
[2024-10-20 07:44] VITALS: BP 150/67; PULSE 71; RESP 18; TEMP 36.3; O2SAT 98
[2024-10-20 07:59] VITALS: BP 150/67
[2024-10-20] MEDS: lisinopriL 20 MG TABLET PO (07:59)
[2024-10-20] MEDS: Albuterol Sulfate 90 MCG 8 GM INHALER 2 PUFF INHALE (08:04)
--- NOTE | 2024-10-20 12:32 | P.PNIM_ITS ---
Subjective Subjective Date of Service: 10/20/24 Interval History: Being followed for lower GI bleed, had hard black bowel movement last night , denies abdominal pain no nausea vomiting no fevers currently tolerating clear liquid diet, hematocrit dropped but above transfusion threshold, no acute events overnight. Review of Systems All other system reviewed and are negative Physical Exam 2 Vital Signs: Vital Signs: Last Vital Signs Temp 97.4 F 10/20/24 07:44 Pulse 71 10/20/24 07:44 Resp 18 10/20/24 07:44 BP 150/67 H 10/20/24 07:59 Pulse Ox 98 10/20/24 07:44 O2 Del Method Room Air 10/20/24 07:44 BMI result Body Mass Index 29.3 Const: Other: General resting comfortably in no acute distress. Neck no JVD. CVS regular rate rhythm, Respiratory lungs clear to auscultation, no respiratory distress, no wheeze, no rhonchi. Gastrointestinal abdomen soft, non tender, bowel sounds audible, no guarding , no rigidity. Extremities no edema. Neuro non focal Skin no rash Appropriate affect Objective Data Active Medications Acetaminophen (Acetaminophen 325 Mg Tablet) 650 mg PO Q6H PRN PRN Reason: Pain, Mild 1-3,fever,headache Albuterol Sulfate (Albuterol Sulfate (0.083%) 2.5 Mg/3 Ml Vial.Neb) 2.5 mg INHALE Q4H PRN PRN Reason: bronchospasm Last Admin: 10/19/24 19:24 Dose: 2.5 mg Documented By: SUKHI Albuterol Sulfate (Albuterol Sulfate 90 Mcg 8 Gm Inhaler) 2 puff INHALE Q4H PRN PRN Reason: Wheezing Last Admin: 10/20/24 08:04 Dose: 2 puff Documented By: PIYUSH Calcium Carbonate (Calcium Carbonate 750 Mg Tab.Chew) 750 mg PO Q4H PRN PRN Reason: Heartburn Lisinopril (Lisinopril 20 Mg Tablet) 20 mg PO DAILY EMMA; Protocol Last Admin: 10/20/24 07:59 Dose: 20 mg Documented By: PIYUSH Magnesium Hydroxide (Milk Of Magnesia 30 Ml Oral.Susp) 30 ml PO DAILY PRN PRN Reason: Constipation Melatonin (Melatonin 3 Mg Tablet) 6 mg PO BEDTIME PRN PRN Reason: Insomnia Sodium Chloride (0.9 % Sodium Chloride Flush 3 Ml Syringe) 3 ml IVFLUSH QSHIFT [facility] Last Admin: 10/20/24 07:45 Dose: Not Given Documented By: PIYUSH Non-Admin Reason: IV Running Labs 10/20/24 06:04 10/20/24 06:04 Labs: Laboratory Results - last 24 hr 10/20/24 06:04 MCV 101.4 H MCH 35.3 H MCHC 34.8 RDW 11.9 Plt Count 211 MPV 9.4 Immature Gran % (Auto) 0.5 H Neut % (Auto) 70.4 Lymph % (Auto) 18.8 L [place] % (Auto) 7.3 Eos % (Auto) 2.5 Baso % (Auto) 0.5 Lymph # (Auto) 1.5 [place] # (Auto) 0.6 Eos # (Auto) 0.2 Baso # (Auto) 0.0 Abs Immat Gran (auto) 0.04 H Absolute Neuts (auto) 5.7 Absolute Nucleated RBC 0.000 Nucleated RBC % (auto) 0.0 Anion Gap 11 L Estim Creat Clear Calc 114.4 Estimated GFR > 60 Random Glucose 100 Calcium 8.3 L Total Bilirubin 0.9 AST 25 ALT 17 Alkaline Phosphatase 35 L Total Protein 5.5 L Albumin 3.3 L Assessment and Plan (1) Diverticulosis: Status: Acute (2) Acute lower gastrointestinal bleeding: Status: Acute Plan 64-year-old male with history of recurrent rectal bleeding secondary to diverticular bleed presents to the emergency room after to frankly bloody stools. Prior to this episode he has not had any bloody stools in some time. He states last colonoscopy 1 year ago. Hemoglobin stable. Bleeding scan failed to demonstrate acute lower GI bleed 1. Acute Lower GI bleed -no recurrent episode , no abdominal pain -tolerating clear liquid diet, DC IV fluid -seen by GI since had recent colonoscopy that showed pandiverticulosis without evidence of diverticulitis and with no evidence of large polyp or colon mass, likely has recurrent diverticular bleed -H&H dropped but stable continue to monitor and gradually advance diet -hold aspirin 2. Hypertension suboptimal control continue lisinopril and follow BP 3. Mild intermittent asthma -stable and well compensated, resume home inhalers Full code Pneumatics Patient will require continued inpatient stay to monitor hemoglobin and recurrent GI bleed. Quality Stroke Does the patient have a stroke diagnosis?: No VTE Prior VTE?: No VTE Risk Level:: Medical - moderate - high VTE Device Contraindication: N/A - Device Ordered VTE Drug Contraindication: Treatment Not Indicated
--- NOTE | 2024-10-20 14:38 | MHC.CM.PN ---
pt is independent lives w/dgter is independent has own ride
[2024-10-20 15:03] VITALS: BP 151/70; PULSE 75; RESP 16; TEMP 36.2; O2SAT 99
[2024-10-20 19:07] VITALS: PULSE 70; RESP 18; TEMP 36.6; O2SAT 98
[2024-10-20] MEDS: 0.9 % Sodium Chloride Flush 3 ML SYRINGE IVFLUSH (21:03)
[2024-10-21 05:58] LABS: MANUAL DIFF FLAG NO
[2024-10-21 06:16] LABS: Basophils Absolute Auto 0.1 X10*3/uL (0.0-0.2); Basophils Percent Auto 0.5 % (0-2); Eosinophils Absolute Auto 0.3 X10*3/uL (0.0-0.4); Eosinophils Percent Auto 2.8 % (0-4); Hematocrit 28.6 % (42.0-52.0); Hemoglobin 9.8 g/dl (14.0-18.0); Imm Gran Abs Auto 0.08 X10*3/uL (0.00-0.03); Imm Gran Pct Auto 0.8 % (0.0-0.4); Lymphocytes Absolute Auto 2.2 X10*3/uL (1.2-4.9); Lymphocytes Percent Auto 22.9 % (20-40); Mean Corpuscular HGB Conc 34.3 g/dl (31.0-36.0); Mean Corpuscular Volume 102.1 fL (80.0-98.0); Mean Platelet Volume 9.3 fL (9.4-12.4); Monocytes Absolute Auto 0.9 X10*3/uL (0.1-1.2); Monocytes Percent Auto 8.8 % (2-11); Neutrophils Absolute Auto 6.2 x10*3/uL (2.0-8.3); Neutrophils Percent Auto 64.2 % (45-73); Platelet Count 238 X10*3/uL (160-400); Red Cell Distribution Width 11.9 % (11.0-16.0); White Blood Count 9.7 X10*3/uL (4.8-10.8)
[2024-10-21 06:21] LABS: Alanine Aminotransferase 23 U/L (0-40); Albumin Level 3.8 g/dL (3.5-5.0); Alkaline Phosphatase 37 U/L (39-117); Anion Gap 12 (12-20); Aspartate Amino Transferase 28 U/L (5-37); Bilirubin Total 0.6 mg/dL (0.0-1.0); Blood Urea Nitrogen 11 mg/dL (9-16); Calcium 8.9 mg/dL (8.4-10.2); Carbon Dioxide 25 mmol/L (22-29); Chloride 104 mmol/L (96-108); Creatinine Clr Calc Pharmacy 93.6; Estimated Glomerular Filt Rate > 60; Glucose Random 111 mg/dL (60-115); Potassium 4.1 mmol/L (3.3-5.1); Sodium 137 mmol/L (135-145); Total Protein 6.3 g/dL (6.5-8.0)
[2024-10-21 07:29] VITALS: BP 128/63; PULSE 68; RESP 18; TEMP 36.4; O2SAT 95
[2024-10-21 08:57] VITALS: BP 128/63
[2024-10-21] MEDS: lisinopriL 20 MG TABLET PO (08:57)
[2024-10-21] MEDS: 0.9 % Sodium Chloride Flush 3 ML SYRINGE IVFLUSH ×2 (08:57→22:04)
[2024-10-21] MEDS: Albuterol Sulfate 90 MCG 8 GM INHALER 2 PUFF INHALE (09:00)
--- NOTE | 2024-10-21 13:32 | P.PNIM_ITS ---
Subjective Subjective Date of Service: 10/21/24 Interval History: Noticed to have couple episode of bright red blood per rectum small amount with no straining, denies abdominal pain, no hematemesis, no melena no worsening abdominal pain with full liquid diet. No lightheadedness, no dizziness, no acute events overnight. Review of Systems All other system reviewed and are negative. Physical Exam 2 Vital Signs: Vital Signs: Last Vital Signs Temp 97.6 F 10/21/24 07:29 Pulse 68 10/21/24 07:29 Resp 18 10/21/24 07:29 BP 128/63 10/21/24 08:57 Pulse Ox 95 10/21/24 07:29 O2 Del Method Room Air 10/21/24 07:29 BMI result Body Mass Index 29.3 Const: Other: General resting comfortably in no acute distress. Neck no JVD. CVS regular rate rhythm, Respiratory lungs clear to auscultation, no respiratory distress, no wheeze, no rhonchi. Gastrointestinal abdomen soft, non tender, bowel sounds audible, no guarding , no rigidity. Extremities no edema. Neuro non focal Skin no rash Appropriate affect Objective Data Active Medications Acetaminophen (Acetaminophen 325 Mg Tablet) 650 mg PO Q6H PRN PRN Reason: Pain, Mild 1-3,fever,headache Albuterol Sulfate (Albuterol Sulfate (0.083%) 2.5 Mg/3 Ml Vial.Neb) 2.5 mg INHALE Q4H PRN PRN Reason: bronchospasm Last Admin: 10/19/24 19:24 Dose: 2.5 mg Documented By: SUKHI Albuterol Sulfate (Albuterol Sulfate 90 Mcg 8 Gm Inhaler) 2 puff INHALE Q4H PRN PRN Reason: Wheezing Last Admin: 10/21/24 09:00 Dose: 2 puff Documented By: PIYUSH Calcium Carbonate (Calcium Carbonate 750 Mg Tab.Chew) 750 mg PO Q4H PRN PRN Reason: Heartburn Lisinopril (Lisinopril 20 Mg Tablet) 20 mg PO DAILY EMMA; Protocol Last Admin: 10/21/24 08:57 Dose: 20 mg Documented By: PIYUSH Magnesium Hydroxide (Milk Of Magnesia 30 Ml Oral.Susp) 30 ml PO DAILY PRN PRN Reason: Constipation Melatonin (Melatonin 3 Mg Tablet) 6 mg PO BEDTIME PRN PRN Reason: Insomnia Sodium Chloride (0.9 % Sodium Chloride Flush 3 Ml Syringe) 3 ml IVFLUSH QSHIFT EMMA Last Admin: 10/21/24 08:57 Dose: 3 ml Documented By: PIYUSH Labs 10/21/24 05:48 10/21/24 05:48 Labs: Laboratory Results - last 24 hr 10/21/24 05:48 MCV 102.1 H MCH 35.0 H MCHC 34.3 RDW 11.9 Plt Count 238 MPV 9.3 L Immature Gran % (Auto) 0.8 H Neut % (Auto) 64.2 Lymph % (Auto) 22.9 [place] % (Auto) 8.8 Eos % (Auto) 2.8 Baso % (Auto) 0.5 Lymph # (Auto) 2.2 [place] # (Auto) 0.9 Eos # (Auto) 0.3 Baso # (Auto) 0.1 Abs Immat Gran (auto) 0.08 H Absolute Neuts (auto) 6.2 Absolute Nucleated RBC 0.000 Nucleated RBC % (auto) 0.0 Anion Gap 12 Estim Creat Clear Calc 93.6 Estimated GFR > 60 Random Glucose 111 Calcium 8.9 D Total Bilirubin 0.6 AST 28 ALT 23 Alkaline Phosphatase 37 L Total Protein 6.3 L Albumin 3.8 Assessment and Plan (1) Diverticulosis: Status: Acute (2) Acute lower gastrointestinal bleeding: Status: Acute (3) Anemia, macrocytic: Status: Acute Plan 64-year-old male with history of recurrent rectal bleeding secondary to diverticular bleed presents to the emergency room after to frankly bloody stools. Prior to this episode he has not had any bloody stools in some time. He states last colonoscopy 1 year ago. Hemoglobin stable. Bleeding scan failed to demonstrate acute lower GI bleed 1. Acute Lower GI bleed -likely diverticular bleed -noticed to have 2 episodes of bright red blood per rectum small amount , no abdominal pain -seen by GI since had recent colonoscopy that showed pandiverticulosis without evidence of diverticulitis and with no evidence of large polyp or colon mass. -H&H dropped but remains stable above transfusion threshold, continue to monitor and gradually advance diet -hold aspirin 2. Hypertension continue lisinopril and follow BP 3. Mild intermittent asthma -stable and well compensated, resume home inhalers Full code Pneumatics Patient will require continued inpatient stay to monitor hemoglobin and recurrent GI bleed. Quality Stroke Does the patient have a stroke diagnosis?: No VTE Prior VTE?: No VTE Risk Level:: Medical - moderate - high VTE Device Contraindication: N/A - Device Ordered VTE Drug Contraindication: Treatment Not Indicated
[2024-10-21 14:02] LABS: Hematocrit 27.5 % (42.0-52.0); Hemoglobin 9.6 g/dl (14.0-18.0); Mean Corpuscular HGB Conc 34.9 g/dl (31.0-36.0); Mean Corpuscular Hemoglobin 35.4 pg (27.0-33.0); Mean Corpuscular Volume 101.5 fL (80.0-98.0); Mean Platelet Volume 9.3 fL (9.4-12.4); Platelet Count 252 X10*3/uL (160-400); Red Blood Count 2.71 X10*6/uL (4.60-5.80); Red Cell Distribution Width 11.9 % (11.0-16.0); White Blood Count 9.8 X10*3/uL (4.8-10.8)
[2024-10-21 15:15] VITALS: BP 130/72; PULSE 78; RESP 18; TEMP 36.6; O2SAT 100
[2024-10-21 18:53] VITALS: BP 121/60; PULSE 78; RESP 18; TEMP 36.6; O2SAT 98
[2024-10-22 04:00] VITALS: BP 113/70; PULSE 85; RESP 18; TEMP 36.2; O2SAT 98
[2024-10-22 06:59] LABS: MANUAL DIFF FLAG NO
[2024-10-22 07:10] LABS: Basophils Absolute Auto 0.1 X10*3/uL (0.0-0.2); Basophils Percent Auto 0.6 % (0-2); Eosinophils Absolute Auto 0.3 X10*3/uL (0.0-0.4); Eosinophils Percent Auto 2.9 % (0-4); Hematocrit 26.4 % (42.0-52.0); Hemoglobin 9.1 g/dl (14.0-18.0); Imm Gran Abs Auto 0.07 X10*3/uL (0.00-0.03); Imm Gran Pct Auto 0.7 % (0.0-0.4); Lymphocytes Absolute Auto 2.2 X10*3/uL (1.2-4.9); Lymphocytes Percent Auto 21.6 % (20-40); Mean Corpuscular HGB Conc 34.5 g/dl (31.0-36.0); Mean Corpuscular Hemoglobin 35.5 pg (27.0-33.0); Mean Corpuscular Volume 103.1 fL (80.0-98.0); Mean Platelet Volume 9.7 fL (9.4-12.4); Monocytes Absolute Auto 0.8 X10*3/uL (0.1-1.2); Monocytes Percent Auto 8.3 % (2-11); Neutrophils Absolute Auto 6.6 x10*3/uL (2.0-8.3); Neutrophils Percent Auto 65.9 % (45-73); Platelet Count 243 X10*3/uL (160-400); Red Blood Count 2.56 X10*6/uL (4.60-5.80)
[2024-10-22 07:54] LABS: Alanine Aminotransferase 18 U/L (0-40); Albumin Level 3.7 g/dL (3.5-5.0); Alkaline Phosphatase 37 U/L (39-117); Anion Gap 10 (12-20); Aspartate Amino Transferase 25 U/L (5-37); Bilirubin Total 0.4 mg/dL (0.0-1.0); Blood Urea Nitrogen 9 mg/dL (9-16); Calcium 8.7 mg/dL (8.4-10.2); Carbon Dioxide 26 mmol/L (22-29); Chloride 105 mmol/L (96-108); Creatinine Clr Calc Pharmacy 95.7; Estimated Glomerular Filt Rate > 60; Glucose Random 104 mg/dL (60-115); Sodium 137 mmol/L (135-145); Total Protein 6.1 g/dL (6.5-8.0)
[2024-10-22 08:00] VITALS: BP 111/58; PULSE 93; RESP 16; TEMP 36.2; O2SAT 98
[2024-10-22] MEDS: lisinopriL 10 MG TABLET PO (08:37)
[2024-10-22] MEDS: 0.9 % Sodium Chloride Flush 3 ML SYRINGE IVFLUSH ×3 (08:38→20:01)
[2024-10-22] MEDS: Albuterol Sulfate 90 MCG 8 GM INHALER 2 PUFF INHALE (09:35)
[2024-10-22 12:32] LABS: Hematocrit 25.9 % (42.0-52.0); Hemoglobin 8.8 g/dl (14.0-18.0); Mean Corpuscular Hemoglobin 34.9 pg (27.0-33.0); Mean Corpuscular Volume 102.8 fL (80.0-98.0); Mean Platelet Volume 9.1 fL (9.4-12.4); Platelet Count 235 X10*3/uL (160-400); Red Blood Count 2.52 X10*6/uL (4.60-5.80); White Blood Count 9.2 X10*3/uL (4.8-10.8)
--- NOTE | 2024-10-22 14:23 | P.PNIM_ITS ---
Subjective Subjective Date of Service: 10/22/24 Interval History: Tolerating full liquid diet, had very hard dark small stool today no blood noted, no nausea no vomiting no abdominal pain. Noted to have further drop in hematocrit. Review of Systems All other system reviewed and are negative Physical Exam 2 Vital Signs: Vital Signs: Last Vital Signs Temp 97.2 F 10/22/24 08:00 Pulse 93 10/22/24 08:00 Resp 16 10/22/24 08:00 BP 111/58 L 10/22/24 08:00 Pulse Ox 98 10/22/24 08:00 O2 Del Method Room Air 10/22/24 08:00 BMI result Body Mass Index 29.3 Const: Other: General resting comfortably in no acute distress. Neck no JVD. CVS regular rate rhythm, Respiratory lungs clear to auscultation, no respiratory distress, no wheeze, no rhonchi. Gastrointestinal abdomen soft, non tender, bowel sounds audible, no guarding , no rigidity. Extremities no edema. Neuro non focal Skin no rash Appropriate affect Objective Data Active Medications Acetaminophen (Acetaminophen 325 Mg Tablet) 650 mg PO Q6H PRN PRN Reason: Pain, Mild 1-3,fever,headache Albuterol Sulfate (Albuterol Sulfate (0.083%) 2.5 Mg/3 Ml Vial.Neb) 2.5 mg INHALE Q4H PRN PRN Reason: bronchospasm Last Admin: 10/19/24 19:24 Dose: 2.5 mg Documented By: SUKHI Albuterol Sulfate (Albuterol Sulfate 90 Mcg 8 Gm Inhaler) 2 puff INHALE Q4H PRN PRN Reason: Wheezing Last Admin: 10/22/24 09:35 Dose: 2 puff Documented By: ENRIQUE Calcium Carbonate (Calcium Carbonate 750 Mg Tab.Chew) 750 mg PO Q4H PRN PRN Reason: Heartburn Lisinopril (Lisinopril 10 Mg Tablet) 10 mg PO DAILY EMMA; Protocol Last Admin: 10/22/24 08:37 Dose: 10 mg Documented By: ENRIQUE Magnesium Hydroxide (Milk Of Magnesia 30 Ml Oral.Susp) 30 ml PO DAILY PRN PRN Reason: Constipation Melatonin (Melatonin 3 Mg Tablet) 6 mg PO BEDTIME PRN PRN Reason: Insomnia Sodium Chloride (0.9 % Sodium Chloride Flush 3 Ml Syringe) 3 ml IVFLUSH QSHIFT [facility] Last Admin: 10/22/24 08:38 Dose: 3 ml Documented By: ENRIQUE Labs 10/22/24 12:23 10/22/24 05:30 Labs: Laboratory Results - last 24 hr 10/22/24 10/22/24 05:30 12:23 MCV 103.1 H 102.8 H MCH 35.5 H 34.9 H MCHC 34.5 34.0 RDW 12.0 12.0 Plt Count 243 235 MPV 9.7 9.1 L Immature Gran % (Auto) 0.7 H Neut % (Auto) 65.9 Lymph % (Auto) 21.6 [place] % (Auto) 8.3 Eos % (Auto) 2.9 Baso % (Auto) 0.6 Lymph # (Auto) 2.2 [place] # (Auto) 0.8 Eos # (Auto) 0.3 Baso # (Auto) 0.1 Abs Immat Gran (auto) 0.07 H Absolute Neuts (auto) 6.6 Absolute Nucleated RBC 0.000 0.000 Nucleated RBC % (auto) 0.0 0.0 Anion Gap 10 L Estim Creat Clear Calc 95.7 Estimated GFR > 60 Random Glucose 104 Calcium 8.7 Total Bilirubin 0.4 AST 25 ALT 18 Alkaline Phosphatase 37 L Total Protein 6.1 L Albumin 3.7 Assessment and Plan (1) Diverticulosis: Status: Acute (2) Anemia, macrocytic: Status: Acute (3) Acute lower gastrointestinal bleeding: Status: Acute Plan 64-year-old male with history of recurrent rectal bleeding secondary to diverticular bleed presents to the emergency room after to frankly bloody stools. Prior to this episode he has not had any bloody stools in some time. He states last colonoscopy 1 year ago. Hemoglobin stable. Bleeding scan failed to demonstrate acute lower GI bleed 1. Acute Lower GI bleed -likely diverticular bleed -noticed to have no further episodes of bright red blood per rectum , had small dark stool, no abdominal pain -seen by GI since had recent colonoscopy that showed pandiverticulosis without evidence of diverticulitis and with no evidence of large polyp or colon mass. -H&H dropped but remains stable above transfusion threshold, continue to monitor and advance diet to regular bland -hold aspirin -monitor CBC 2. Hypertension continue lisinopril reduce dose to 10 mg and follow BP 3. Mild intermittent asthma -stable and well compensated, resume home inhalers Full code Pneumatics Patient will require continued inpatient stay to monitor hemoglobin and recurrent GI bleed. Quality Stroke Does the patient have a stroke diagnosis?: No VTE Prior VTE?: No VTE Risk Level:: Medical - moderate - high VTE Device Contraindication: N/A - Device Ordered VTE Drug Contraindication: Treatment Not Indicated
[2024-10-22 15:10] VITALS: BP 105/60; PULSE 84; RESP 18; TEMP 36.7; O2SAT 98
[2024-10-22 19:29] VITALS: BP 114/58; PULSE 79; RESP 18; TEMP 36.6; O2SAT 97
[2024-10-23 03:38] VITALS: BP 112/60; PULSE 76; RESP 16; TEMP 36.5; O2SAT 96
[2024-10-23 05:39] LABS: Hematocrit 24.2 % (42.0-52.0); Hemoglobin 8.3 g/dl (14.0-18.0); Mean Corpuscular HGB Conc 34.3 g/dl (31.0-36.0); Mean Corpuscular Hemoglobin 35.5 pg (27.0-33.0); Mean Corpuscular Volume 103.4 fL (80.0-98.0); Mean Platelet Volume 9.1 fL (9.4-12.4); Platelet Count 228 X10*3/uL (160-400); Red Blood Count 2.34 X10*6/uL (4.60-5.80); Red Cell Distribution Width 12.5 % (11.0-16.0); White Blood Count 8.8 X10*3/uL (4.8-10.8)
[2024-10-23 06:02] LABS: Iron 20 mcg/dL (45-160); Percent Iron Saturation 7 % (15-50); Total Iron Binding Capacity 270 mcg/dL (228-428); Unsaturated Iron Binding 250 ug/dL
[2024-10-23 06:16] LABS: Ferritin 55 ng/mL (20-250)
[2024-10-23 07:30] VITALS: BP 118/60; PULSE 66; RESP 18; TEMP 36.2; O2SAT 100
[2024-10-23 07:42] VITALS: BP 118/60
[2024-10-23] MEDS: lisinopriL 10 MG TABLET PO (07:42)
[2024-10-23] MEDS: 0.9 % Sodium Chloride Flush 3 ML SYRINGE IVFLUSH (07:42)
--- NOTE | 2024-10-23 11:02 | PM.DS ---
DS: Providers Provider Date of Service: 10/23/24 Date of admission: 10/19/24 13:55 Date of discharge: 10/23/24 Primary care physician: Gabbi Washington MD Consults: 10/19/24 13:59 Consult to Gastroenterology Routine Consulting Provider: Ryan Mendez Reason for consultation: LGIB Has provider been notified: No DS: Diagnosis Discharge Diagnosis (1) Diverticulosis: Status: Acute (2) Anemia, macrocytic: Status: Acute (3) Acute lower gastrointestinal bleeding: Status: Acute DS: Summary Hospital Course Hospital Course: History of presenting illness: Date of Service: 10/19/24 Chief Complaint: Lower GI bleed 4-year-old male with past medical history of asthma, HLD, HTN, embolization of a brain aneurysm in 2016 on aspirin, diverticulosis with GI bleed who comes into the hospital complaints of multiple episodes of bloody bowel movements. The patient states that this is 3rd episode of bright red blood per rectum and he was followed by Dr. Mendez. The patient states that yesterday around 14:30 hours he started to have a gurgling sensation in his abdomen and he states that this is preceded his previous lower GI bleeds. He states that he then developed bright red blood per rectum. He states he was had at least 5 episodes of passing bright red blood. He was last episode was at 05:00 hours and he described the amount of blood as moderate. He states that he was feeling lightheaded and dizzy therefore he came to the emergency department for evaluation. He denies having abdominal pain. The patient states that he was continuing to take his aspirin for his brain aneurysm. Patient was last admitted for lower GI bleed on 07/21/2023 for lower GI bleed. Patient had a CT angiogram GI bleed study that did not reveal any extravasation of contrast and it was felt that the patient had a large intestine bleed secondary to his diverticulosis. ER Hemoglobin stable CTA scan GI protocol failed to demonstrate any acute bleeding. Hospital consult: 64-year-old male with history of recurrent rectal bleeding secondary to diverticular bleed presents to the emergency room after multiple episodes of bloody stools and admitted with following medical issues. 1. Acute Lower GI bleed likely diverticular bleed,seen by GI since had recent colonoscopy that showed pandiverticulosis without evidence of diverticulitis and with no evidence of large polyp or colon mass no repeat colonoscopy was planned, CT scan GI protocol showed no acute bleeding, patient noted to have few episodes of bright red blood per rectum during course of hospitalization with no associated date abdominal pain, H&H trended down but remained above transfusion threshold, diet was gradually advanced, at present patient tolerating regular diet has had normal bowel movement in last 2 days with no bleeding therefore being discharged home with recommendation to follow bland diet and placed on iron supplements twice daily, recommend to take high-fiber diet once acute episode is resolved. 2. Hypertension continue lisinopril reduce dose to 10 mg recommend outpatient blood pressure monitoring. 3. Mild intermittent asthma stable and well compensated, resume home inhalers. Time Attestation Discharge Coordination Time (in mins): 38 Quality: Safe Use of Opioids Does Pt have an Active Cancer Diagnosis on the Problem List?: No Quality: Stroke Does the patient have a stroke diagnosis?: No Physical Exam Vital Signs: Vital Signs: Last Vital Signs Temp 97.2 F 10/23/24 07:30 Pulse 66 10/23/24 07:30 Resp 18 10/23/24 07:30 BP 118/60 10/23/24 07:42 Pulse Ox 100 10/23/24 07:30 O2 Del Method Room Air 10/23/24 07:30 BMI result Body Mass Index 29.3 Const: Other: General resting comfortably in no acute distress. Neck no JVD. CVS regular rate rhythm, Respiratory lungs clear to auscultation, no respiratory distress, no wheeze, no rhonchi. Gastrointestinal abdomen soft, non tender, bowel sounds audible, no guarding , no rigidity. Extremities no edema. Neuro non focal Skin no rash Appropriate affect DS: Data Data Completed and Pending Completed studies during hospitalization [Text1]: Procedures Transfusion of Nonautologous Red Blood Cells into Peripheral Vein, Percutaneous Approach (07/21/23) Labs on day of discharge: Laboratory Results - last 24 hr 10/22/24 10/23/24 12:23 05:20 WBC 9.2 8.8 RBC 2.52 L 2.34 L Hgb 8.8 L 8.3 L Hct 25.9 L 24.2 L MCV 102.8 H 103.4 H MCH 34.9 H 35.5 H MCHC 34.0 34.3 RDW 12.0 12.5 Plt Count 235 228 MPV 9.1 L 9.1 L Absolute Nucleated RBC 0.000 0.000 Nucleated RBC % (auto) 0.0 0.0 Iron 20 L TIBC 270 % Saturation 7 L Unsat Iron Binding 250 Ferritin 55 Discharge Plan Discharge Anticipated Discharge Date/Time: 10/23/24 10:56 Patient Disposition: Home, Self-Care Discharge Diagnosis: Lower GI bleed Referrals: Po,Gabbi Farrell MD [Primary Care Provider] - 1 Week Discharge Medications: New ferrous sulfate 324 mg (65 mg iron) tablet,delayed release (DR/EC) 324 mg PO BID Qty: 60 0RF Continued albuterol sulfate [ProAir HFA] 90 mcg/actuation HFA aerosol inhaler 2 puff inhalation Q4-6H PRN (Reason: Wheezing) (DME) NEBULIZER See Rx Instructions .Route .MEDSUPPLY Qty: 1 0RF Rx Instructions: As directed albuterol sulfate 2.5 mg /3 mL (0.083 %) solution for nebulization 2.5 mg inhalation Q4-6H PRN (Reason: bronchospasm) Qty: 90 3RF (DME) A.I.R.S Nebulizer Replacement Kit See Rx Instructions .ROUTE .MEDSUPPLY Qty: 1 0RF Rx Instructions: As directed (DME) Medial Microbiological Analyst Knee brace See Rx Instructions .ROUTE .MEDSUPPLY Qty: 1 0RF Rx Instructions: n/a Changed lisinopril 20 mg tablet 10 mg PO DAILY Qty: 90 3RF Held aspirin [Adult Low Dose Aspirin] 81 mg tablet,delayed release (DR/EC) 81 mg PO DAILY Qty: 90 0RF Hold Instructions: Resume on 10/28/24. Discharge Orders: Discharge Order (Routine); Ordered 10/23/24 Ordered By: Livia Geronimo Diet: bland diet Activity on Discharge: As tolerated Stand Alone Forms: Patient Portal Discharge page, Work/School Release Print Language: Belarusian Care Plan Goals: Decrease dose of lisinopril to 10 mg daily (1/2 tablet of lisinopril 20 mg) Hold aspirin as instructed Returned to check with recurrent GI bleed Take ferrous sulfate 1 tablet twice daily/start with 1 tablet daily for few days then increase to 1 tablet twice daily Continue bland diet for next few days and then use high-fiber diet after 2 weeks, avoid constipation Returned to check with recurrent episode of bright red blood per rectum Health Concerns: Continue all home medication as before Plan of Treatment: Follow-up with primary care physician call for appointment Assessment: As above
--- NOTE | 2024-10-23 11:30 | MHC.CM.PN ---
Patient medically cleared for dc home self care. [place] [facility] [place] RN aware.
== END 2024-10-23 11:46 | disposition home or self-care (01) | DRG 379 ==
LOC: HO.ED 09:46 → HO.EDOVER 14:00 → HO.S3 14:27
PROVIDERS: Emergency Medicine Emergency Medical Services; Admitting Provider Hospitalist; Emergency Provider Emergency Medicine; PCP Internal Medicine; Visit Provider Hospitalist
DX: K57.31 Diverticulosis of large intestine without perforation or abscess with bleeding (principal); F17.210 Nicotine dependence, cigarettes, uncomplicated; D53.9 Nutritional anemia, unspecified; I10 Essential (primary) hypertension; J45.20 Mild intermittent asthma, uncomplicated; Z20.822 Contact with and (suspected) exposure to COVID-19; Z79.82 Long term (current) use of aspirin; Z79.899 Other long term (current) drug therapy
CPT/HCPCS: 0241U; 36415; 74178; 80053; 82272; 82728; 83540; 83690; 83735; 85014; 85018; 85025; 85027; 85610; 85730; 86850; 86900; 86901; 94640; 99285; J7120; Q9967

== ENCOUNTER → 2024-10-19 06:11 | Outpatient (BNV) | payer OTHER, SELFPAY | PROVIDERS: Emergency Provider Emergency Medicine; PCP Internal Medicine; Visit Provider Radiology Diagnostic Radiology | DX: K57.30 Diverticulosis of large intestine without perforation or abscess without bleeding (principal) | CPT/HCPCS: 74178 ==

== ENCOUNTER → 2024-10-19 13:55 | Outpatient (BNV) | payer OTHER, SELFPAY | PROVIDERS: Admitting Provider Hospitalist; Emergency Provider Emergency Medicine; PCP Internal Medicine; Visit Provider Hospitalist | DX: K57.91 Diverticulosis of intestine, part unspecified, without perforation or abscess with bleeding (principal) | CPT/HCPCS: 99223; 99232; 99233; 99239 ==

== ENCOUNTER → 2024-10-19 13:55 | Outpatient (BNV) | payer OTHER, SELFPAY | PROVIDERS: Admitting Provider Hospitalist; Emergency Provider Emergency Medicine; PCP Internal Medicine; Visit Provider Internal Medicine Gastroenterology | DX: K92.2 Gastrointestinal hemorrhage, unspecified (principal); K57.90 Diverticulosis of intestine, part unspecified, without perforation or abscess without bleeding | CPT/HCPCS: 99222 ==

== ENCOUNTER 2024-10-27 14:11 | Outpatient (AMB) | payer OTHER, SELFPAY ==
--- NOTE | 2024-10-27 14:13 | A.OFFPC_ITS ---
Vital Signs 10/27/24 14:14 Height 5 ft 8 in Weight 205 lb 4 oz BMI 31.2 BP 116/82 Blood Pressure Location Lt brachial Position Sitting Pulse 93 Pulse Source Pulse Oximeter Temp 98.6 F Temp Source Oral Pulse Oximetry (%) 96 Oxygen Delivery Method Room Air Intake Visit Reasons: [facility] 10/23 Skinning Machine Feeder Required: No Accompanied by: Self / Same As Patient Allergies No Known Allergies Allergy (Verified 10/27/24 14:30) Medication List - Last Reconciled 10/27/24 by JEFFERY Carey albuterol sulfate 90 mcg/actuation (ProAir HFA) 2 puffs inhalation Q4-6H PRN albuterol sulfate 2.5 mg (3 mL) inhalation Q4-6H PRN aspirin (Adult Low Dose Aspirin) 81 mg PO DAILY ferrous sulfate 324 mg PO BID lisinopril 10 mg (1/2 x 20 mg) PO DAILY [Medial Continuing Education Dean Knee brace n/a] [NEBULIZER As directed] nebulizer accessories (A.I.R.S Nebulizer Replacement kit) As directed Tobacco use date assessed: 10/27/24 Dental Screening Dental Screen Date: 10/27/24 Did you have a dental visit in the last 12 months?: No Did you have a dental problem in the last 6 months where you did not have access to dental care?: No Was dental information given to patient?: No HPI [facility] 10/23 HPI Details The patient is 64 y/o male with past medical history HLD, HTN, embolization of brain aneurysm in 2016, diverticulosis, Alcohol use disease, right knee pain, SI (sacroilac) pain, enlarge prostate, Impaired glucose tolerance, tear of meniscus of left knee, strain of left knee, and patellofemoreal arthritis of left knee. He is patient of Dr. Washington. He was last seen in the office on 04/30/24 for right knee pain. Chart review: The patient went to the ER on 10/19/24 with complaints of multiple episodes of bloody bowel movements. The patient states that the symptoms he was having, like the gurgling sensation in his abdomen and bright red blood from his rectum, reminds him of his previous GI bleeds. He reports that he had at least 5 episodes of bright red blood. He also reports lightheadedness and dizziness. The patient reports continue taking his aspirin for his brain aneurysm. The patient was last admitted for lower GI bleed on 07/21/2023. The patient had a CT angiogram GI bleed study that did not revea any extravasation of contrast and it was felt that the patient had a large intestine bleed secondary to his diverticulosis. 09/30/23 Colonoscopy was performed by Dr Frank Mendez which showed pandiverticulo sis without evidence of diverticulitis. There was no rectal bleeding. No polyps were identified. The patient H/H 8.3/24.2, MCV 13.4, MCH 35.5-macrocytic anemia-possible due to ETOH The patient iron levels were low: ferrous sulfate 324 mg (65 mg iron) started in the hospital. His aspirin 81 mg was held in the hospital, to be resume on 10/28/24. The patient lisinopril was decreased from 20 mg to 10 mg. The patient was encouraged to increase fiber in the diet: citrucel gummies otc was encouraged to avoid constipation. --She patient reports that he has been f eeling much better, he denies sob, chest pain, heart palpitation, denies abdominal pain, denies recurrent bloody stool. Denies n/v. -The patient reports that he usually dri nks 2-3 shots a day but has not drink since he been in the hospital. He reports smoking 2 cigarettes/day. He drinks coffee occasionally. He asked if he could take something for his arthritic knee. The patient was educated that NSAIDs that works the best for arthritis he cannot take due to his GI bleed and his aspirin use. The patient verbalized understanding. TCM TCM Information Date of Discharge 10/23/24 Discharged From [facility] Interactive Contact Date (Reference documentation from this date) 10/26/24 [facility] Medical History History of diverticulosis Seasonal allergies Osteoarthritis of left knee Tubular adenoma of colon Hypertension Hypercholesterolemia Obesity (BMI 30-39.9) Brain aneurysm Asthma Surgical History History of knee surgery Hx of brain surgery Hx of colonoscopy History of inguinal hernia repair Family History Father Esophageal cancer Mother Diabetes Hypertension Stroke Maternal Uncle Throat cancer Social History Household Members: Children Housing: Apartment Do you presently have visiting nurse or other home services: No Alcohol intake: current Alcohol intake frequency: a few times a month Patient Tobacco Use Status: Current someday Tobacco user Tobacco use type: Cigarette Cigarettes Per Day: 1 e-Cigarette/Vaping Use: Never Used Second Hand Smoke Exposure: No Substance Use Type: Marijuana service: No Current occupational status: employed Current occupation: rt handed Cognitive needs: No Hearing needs: No Vision needs: No Questionnaire PHQ-9 Over the last 2 weeks, how often have you been bothered by any of the following problems? 1. Little interest or pleasure in doing things: not at all 2. Feeling down, depressed, or hopeless: not at all 3. Trouble falling or staying asleep, or sleeping too much: not at all 4. Feeling tired or having little energy: not at all 5. Poor appetite or overeating: not at all 6. Feeling bad about yourself - or that you are a failure or have let yourself or your family down: not at all 7. Trouble concentrating on things, such as reading the newspaper or watching television: not at all 8. Moving or speaking so slowly that other people could have noticed. Or the opposite - being so fidgety or restless that you have been moving around a lot more than usual: not at all 9. Thoughts that you would be better off or of hurting yourself in some way: not at all Total score: 0 Depression Screening Interpretation: Negative Depression Screening Done: Yes 63727 - PHQ-9 Billing: Yes Source: Developed by Drs. Ernesto Ogden, Elise Sierra, Onofre Qiu and colleagues, with an educational rhona from [employer]. Thrive Questionnaire Date Thrive assessed: 10/27/24 I am a: Patient What is your living situation today?: I have a steady place to live Within the past 12 months, did the food you bought not last and you didn't have the money to get more?: Never true Within the past 12 months, did you worry whether your food would run out before you got money to buy more?: Never true Do you have trouble paying for medicines?: No Do you have trouble getting transportation to medical appointments?: No Do you have trouble paying your heating and electricity bill?: No Do you have trouble taking care of your child, family member or friend?: No Do you have trouble with day-to-day activities such as bathing, preparing meals, shopping, managing finances, etc.?: No Are you currently unemployed and looking for a job?: No Are you interested in more education?: No Please select the resources that you would like help with: None Currently or been in a relationship where the following occur: No concerns reported THRIVE Score: 0 AUDIT C Alcohol Use Questionnaire (AUDIT-C) 1. How often do you have a drink containing alcohol?: Monthly or less 2. How many drinks containing alcohol do you have on a typical day when you are drinking?: 1 or 2 3. How often do you have six or more drinks on one occasion?: Never Total Score: 1 Score Reviewed/Action Taken: Yes FELIX-7 AMB Questionnaire FELIX-7 Date FELIX - 7 assessed: 10/27/24 Feeling nervous, anxious, or on edge: 0 = Not at all Not being able to stop or control worryin = Not at all Worrying too much about different things: 0 = Not at all Trouble relaxin = Not at all Being so restless that it is hard to sit still: 0 = Not at all Becoming easily annoyed or irritable: 0 = Not at all Feeling afraid as if something awful might happen: 0 = Not at all Total FELIX-7 score (0-4 normal; 5-9 mild; 10-14 moderate; 15-21 severe): 0 Source: Developed by Drs. Ernesto Ogden, Elise Sierra, Onofre Qiu and colleagues, with an educational rhona from [employer]. FELIX-7 Assessment Billing FELIX-7 Assessment Tool: FELIX-7 Assessment 58442 Review of Systems Const Details: Const Denies chills, Denies fatigue, Denies fever(s), Denies headache(s) and Denies weakness ENT Denies dizziness and Denies headache(s) Card Denies chest pain, Denies lightheadedness, Denies dyspnea and Denies other (Pa lpitations) Resp Denies cough, Denies dyspnea, Denies wheezing and Denies other ( shortness of breath) GI Denies abdominal pain, Denies melena, Denies hematochezia, Denies change in bowel habits, Denies dyspepsia and Denies nausea Denies hematuria and Denies dysuria Musc Denies abnormal gait, Denies myalgias, reports chronic knee pain, Denies numbness and Denies tingling Skin/Breast Denies rash, Denies unusual bruising and Denies wounds Neuro Denies abnormal gait, Denies dizziness, Denies headache(s), Denies memory loss, Denies numbness, Denies Sensory deficit (Neuro), Denies tingling and Denies weakness Psych Denies anxiety, Denies depression, Denies memory loss Endo Denies cold intolerance, Denies fatigue, Denies heat intolerance, Denies polydipsia and Denies polyuria Aller/Immun Denies wheezing Physical exam (Primary Care) Vital Signs: Last Vital Signs Temp 98.6 F 10/27/24 14:14 Pulse 93 10/27/24 14:14 BP 116/82 10/27/24 14:14 Pulse Ox 96 10/27/24 14:14 Oxygen Delivery Method Room Air 10/27/24 14:14 BMI result Body Mass Index 31.2 Tobacco/Smoking Status: Tobacco use Status Tobacco use date assessed 10/27/24 10/27/24 14:19 Patient Tobacco Use Status Current someday Tobacco 10/27/24 14:19 Tobacco use type Cigarette 10/27/24 14:19 e-Cigarette/Vaping Use Never Used 10/27/24 14:19 PHQ-9: PHQ-9 Score PHQ-9: Total score 0 10/27/24 20:21 Depression Screening Interpretation: Negative Thrive Assessment: Date of Thrive Assessment Date Thrive assessed 10/27/24 10/27/24 14:19 Currently or been in a relationship where the following occur: No concerns reported Const Other: General: no acute distress and well developed Nutritional Appearance: well nourished Orientation/consciousness: patient oriented x3 HENMT Head: Yes normocephalic and Yes atraumatic Eyes General: appearance normal, both eyes and all related structures Pupils: Equal, round and reactive pupils present EOM: EOMs intact bilaterally Resp Effort & Inspection: normal respiratory effort Auscultation: clear to auscultation bilaterally Cardio Rate: regular rate Rhythm: regular rhythm Heart sounds: S1 normal heart sound present, S2 normal heart sound present, no gallops, no murmurs and no rubs GI Palpation (GI): No Abdominal aortic bruit present, Soft to palpation, nontender, No hepatosplenomegaly present and No Rebound tenderness present Auscultation: normal bowel sounds General: Yes no CVA tenderness Back/Spine/Pelvis Back: no CVA tenderness Cervical Spine: cervical ROM normal and No Cervical spine tenderness Thoracic/Lumbar Spine: thoraco-lumbar ROM normal, No pain with thoraco-lumbar ROM, No thoracic spinal tenderness and No lumbar spinal tenderness Extrem General: Yes normal to inspection, No edema and No calf tenderness Skin General: warm and dry. Normal skin color. Normal skin turgor Lesions: no lesions Rashes: no rashes Trauma: no lacerations or abrasions Wounds: no wounds Nails: normal Neuro General: patient oriented x3, gait normal and no focal neuro deficit Cranial nerves: Yes Equal, round and reactive pupils present Cognition (Neuro): normal cognition Gait exam (Neuro): Normal gait present Sensory Exam: No Sensory deficit (Neuro) Psych Appearance: grossly normal Affect: normal affect Attitude: cooperative Thought process: Normal thought process present Coding Level of Care Code TCM Mod MDM <= 7 Days Diagnoses Iron deficiency E61.1 Anemia, macrocytic D53.9 Diverticulosis of colon with hemorrhage of large intestine K57.31 Brain aneurysm I67.1 Essential hypertension I10 Hypertension type: essential hypertension Constipation, unspecified constipation type K59.00 Constipation type: unspecified constipation type Right knee pain, unspecified chronicity M25.561 Chronicity: unspecified Additional Codes FELIX-7 Assessment Billing - FELIX-7 Assessment Tool: FELIX-7 Assessment [id number] ([id number]) PHQ-9 - 12912 - PHQ-9 Billing: Yes ([id number]) Assessment & Plan Assessment & Plan (1) Iron deficiency: Code(s): E61.1 - Iron deficiency Category: Medical Plan: continue to take ferrous sulfate 324 mg BID-preferably with orange juice We will recheck labs in 4 weeks (2) Anemia, macrocytic: Code(s): D53.9 - Nutritional anemia, unspecified Category: Medical Plan: This most likely and if the of EtOH; will check folate/b12 with repeat labs in 4 weeks. (3) Diverticulosis of colon with hemorrhage of large intestine: Code(s): K57.31 - Diverticulosis of large intestine without perforation or abscess with bleeding Category: Medical Plan: Hold aspirin and resume on 10/28/2024. Encouraged cigarette/alcohol cessation (4) Brain aneurysm: Comment: Anterior communicating aneurysm coiling done January 2016 Dr. Aviles, January 2017 diagnostic cerebral angiogram good Code(s): I67.1 - Cerebral aneurysm, nonruptured Category: Medical Plan: resumed aspirin as scheduled (5) Hypertension: Code(s): I10 - Essential (primary) hypertension Category: Medical Qualifiers: Hypertension type: essential hypertension Qualified Code(s): I10 - Essential (primary) hypertension Plan: reinforced low sodium diet continue lisinopril 10 mg daily (6) Constipation: Code(s): K59.00 - Constipation, unspecified Category: Medical Qualifiers: Constipation type: unspecified constipation type Qualified Code(s): K59 .00 - Constipation, unspecified Plan: encouraged citrucel gummies otc. The patient does not like the mixture of fiber in liquid. (7) Right knee pain: Code(s): M25.561 - Pain in right knee Category: Medical Qualifiers: Chronicity: unspecified Qualified Code(s): M25.561 - Pain in right knee Plan: Offered patient topical cream for arthritis-the patient said that he will get something OTC from the pharmacy Physical activity as tolerated Plan Follow up in 4 weeks; do repeat labs before appt. I personally spent 35 minutes reviewing the chart, caring for the patient and documenting after the visit. Orders: Orders Complete Blood Count Auto Diff 4 Weeks K57.90 - Diverticulosis of intestine, part unspecified, without perforation or abscess without bleeding, D53.9 - Nutritional anemia, unspecified, F10.90 - Alcohol use, unspecified, uncomplicated, E61.1 - Iron deficiency Comprehensive [place]. Panel Fast 4 Weeks K57.90 - Diverticulosis of intestine, part unspecified, without perforation or abscess without bleeding, D53.9 - Nutritional anemia, unspecified, F10.90 - Alcohol use, unspecified, uncomplicated, E61.1 - Iron deficiency Vitamin B12 and Folate 4 Weeks K57.90 - Diverticulosis of intestine, part unspecified, without perforation or abscess without bleeding, D53.9 - Nutritional anemia, unspecified, F10.90 - Alcohol use, unspecified, uncomplicated, E61.1 - Iron deficiency IRON PROFILE 4 Weeks K57.90 - Diverticulosis of intestine, part unspecified, without perforation or abscess without bleeding, D53.9 - Nutritional anemia, unspecified, F10.90 - Alcohol use, unspecified, uncomplicated, E61.1 - Iron deficiency Medications: Changed From albuterol sulfate 90 mcg/actuation 2 puffs inhalation Q4-6H PRN Wheezing To albuterol sulfate 90 mcg/actuation 2 puffs inhalation Q4-6H PRN 8.5 grams 3RF Wheezing
[2024-10-27 14:14] VITALS: BP 116/82; PULSE 93; TEMP 37; O2SAT 96; BMI 31.2
== END 2024-10-27 14:49 | disposition home or self-care (01) ==
PROVIDERS: PCP Internal Medicine
DX: E61.1 Iron deficiency (principal); D53.9 Nutritional anemia, unspecified; K57.31 Diverticulosis of large intestine without perforation or abscess with bleeding; I67.1 Cerebral aneurysm, nonruptured; I10 Essential (primary) hypertension; K59.00 Constipation, unspecified; M25.561 Pain in right knee

== ENCOUNTER → 2024-10-27 14:11 | Outpatient (BNVA) | payer OTHER, SELFPAY | PROVIDERS: PCP Internal Medicine | DX: E61.1 Iron deficiency (principal); D53.9 Nutritional anemia, unspecified; K57.31 Diverticulosis of large intestine without perforation or abscess with bleeding; I67.1 Cerebral aneurysm, nonruptured; I10 Essential (primary) hypertension; K59.00 Constipation, unspecified; M25.561 Pain in right knee; Z79.899 Other long term (current) drug therapy | CPT/HCPCS: 96127 ==

== ENCOUNTER 2024-11-23 15:34 | Outpatient (REF) | payer OTHER, SELFPAY ==
--- OUTSIDE RECORDS SUMMARY | 2024-11-23 15:37 | XMS_ITS | Clinical Summary ---
Author Organization [facility] Address [address] [place] [id number] Phone Care Team Providers Care Caustic Preparer Name Role Phone Unavailable Primary Care Provider Unavailabl e Social History Tobacco Use Types Packs/Day Years Used Date Smoking Tobacco: Never Assessed Sex and Gender Information Value Date Recorded Sex Assigned at Male 03/20/2022 9:13 AM EDT Legal Sex Male 12:03 PM EST Gender Identity Male 03/20/2022 9:13 AM EDT Sexual Orientation Not on file Plan of Treatment Health Maintenance Due Date Last Done Comments HIV screening 1975 Hepatitis C screening 1980 Lipid disorder screening 2002 Colon cancer screening, Colonoscopy 2007 Diabetes screening 2007 Shingles vaccine (Shingrix) (1 of 2 - Shingrix (RZV) 2 Dose Standard Series) 2012 Influenza vaccine 05/20/2024 Covid-19 vaccine series ( season) 2024 Tetanus adult (Td q 10,TDAP once) 08/12/2030 020 RSV Discussion (1 - 1-dose 7 5+ series) 2037 Meningococcal Vaccine Aged Out No jo ivan eligible based on patient's age to complete this topic Pneumococcal Vaccine Aged Out No long er eligible based on patient's age to complete this topic
--- OUTSIDE RECORDS SUMMARY | 2024-11-23 15:37 | XMS_ITS | Encounter Summary ---
Author Organization [facility] and [facility] Address [address] [place] [phone] Care Team Providers Care Mortgage Consultant Name Role Phone Unavailable Primary Care Provider Unavailabl e Encounter Details Date Type Department Care Team (Late st Contact Info) Description 04/09/2016 Scanned Document [facility] [address] [place] [address] Saravanan Kaiser MD [address] [place] [phone] Social History Tobacco Use Types Packs/Day Years Used Date Smoking Tobacco: Never Assessed Sex and Gender Information Value Date Recorded Sex Assigned at Male 03/20/2022 9:13 AM EDT Legal Sex Male 12:03 PM EST Gender Identity Male 03/20/2022 9:13 AM EDT Sexual Orientation Not on file documented as of this encounter Plan of Treatment Not on file documented as of this encounter Visit Diagnoses Not on filedocumented in this encounter
--- OUTSIDE RECORDS SUMMARY | 2024-11-23 15:37 | XMS_ITS | Encounter Summary ---
Author Organization [facility] and [facility] Address [address] [place] [phone] Care Team Providers Care Restaurant Hourly Manager Name Role Phone Unavailable Primary Care Provider Unavailabl e Reason for Visit * Reason Comments Appointment [facility] Encounter Details Date Type Department Care Team ([facility] Contact Info) Description 11/01/2021 Telephone [facility] 800 [facility][Note 3] 800 [place], [place] [address] Saravanan Kaiser MD [address] [place] [phone] Appointment ([facility]) Social History Tobacco Use Types Packs/Day Years Used Date Smoking Tobacco: Never Assessed Sex and Gender Information Value Date Recorded Sex Assigned at Male 03/20/2022 9:13 AM EDT Legal Sex Male 12:03 PM EST Gender Identity Male 03/20/2022 9:13 AM EDT Sexual Orientation Not on file documented as of this encounter Miscellaneous Notes * Telephone Encounter - Ryan Falcon RN - 11/06/2021 4:29 PM EST Spoke with Rebecca who said Bernardo has been scheduled for his knee surgery on 12/12/21. Told her we will reach out to them in December if they have not called to schedule MRA and appt with Dr. Kaiser. * Telephone Encounter - Leanna Baker - 11/02/2021 6:22 PM EST Spoke with patient, per pt his daughter spoke with Dr. Kaiser regarding him getting knee surgery and agreed that she would be calling once he is done with his knee surgery. * Telephone Encounter - Leanna Baker - 11/01/2021 9:01 AM EST LM for pt to call back to schedule appt. Please update pt's chart with missing information. * Telephone Encounter - Leanna Baker - 11/01/2021 9:01 AM EST ----- Message from Antoine Denny RN sent at 11/01/2021 8:32 AM EST ----- Regarding: Awilda/MRA and TH Provider: Awilda Expected date: next available Type of appointment: follow up, Tele-health Imaging to schedule prior: MRA brain (TO be done 1 week prior) Imaging needed from [facility] (imaging to be pushed/reports scanned): n/a Appointment Notes (should be copied into the appointment notes): re-establish care after stent-coiling at [facility] documented in this encounter Plan of Treatment Not on file documented as of this encounter Visit Diagnoses Not on filedocumented in this encounter
--- OUTSIDE RECORDS SUMMARY | 2024-11-23 15:37 | XMS_ITS | Encounter Summary ---
Author Organization [facility] and [facility] Address [address] [place] [phone] Care Team Providers Care Engagement Director Name Role Phone Unavailable Primary Care Provider Unavailabl e Reason for Visit * Reason Comments Triage Encounter Details Date Type Department Care Team ([facility] Contact Info) Description 07/24/2023 Telephone [facility] 800 [facility] [place], [place] [phone] Saravanan Kaiser MD [address] [place] [phone] Triage Social History Tobacco Use Types Packs/Day Years Used Date Smoking Tobacco: Never Assessed Sex and Gender Information Value Date Recorded Sex Assigned at Male 03/20/2022 9:13 AM EDT Legal Sex Male 12:03 PM EST Gender Identity Male 03/20/2022 9:13 AM EDT Sexual Orientation Not on file documented as of this encounter Miscellaneous Notes * Telephone Encounter - Leanna Baker - 07/28/2023 5:32 PM EDT Spoke with Daughter, scheduled for 08/11. Per daughter, Dr. Kaiser would be able to get licensed to do a phone consult with her since she is in [place] and that the pt is in [place], [place]. She states that he told her the insurance would cover visit because he is the only specialist in aneurysm in [facility] located in [place]. Checked with Account Analyst Faby who is checking with Alma Rosa. * Telephone Encounter - Esthela Samson - 07/24/2023 9:58 AM EDT Rebecca called stating that her dad is currently admitted at [facility] for GI bleeding. She asked if you can give her a call back because they are trying to stop his Asprin. Please advise Ms. Fernandez's Number: [phone] documented in this encounter Plan of Treatment Not on file documented as of this encounter Visit Diagnoses Not on filedocumented in this encounter
--- OUTSIDE RECORDS SUMMARY | 2024-11-23 15:37 | XMS_ITS | Encounter Summary ---
Author Organization [facility] and [facility] Address [address] [place] [phone] Care Team Providers Care Rope Making Machine Operator Name Role Phone Unavailable Primary Care Provider Unavailabl e Reason for Referral * Imaging (Routine) - Closed Specialty Diagnoses / Procedures Referred By Gwen oliva Referred To Contact Diagnostic Radiology Procedures CT Head wo IV Contrast [facility] [address] [facility] [address] [place] [address] Phone: tel: fax: Referral ID Status Reason Start Date Expiration Date Visits Re quested Visits Authorized [id number] Closed 11/07/2021 11/07/2022 1 1 Encounter Details Date Type Department Care Team (Late Contact Info) Description 11/07/2021 Scanned Document Neurosurgery at [address] [facility] [address] [place] [address] Freddie Davis . Social History Tobacco Use Types Packs/Day Years Used Date Smoking Tobacco: Never Assessed Sex and Gender Information Value Date Recorded Sex Assigned at Male 03/20/2022 9:13 AM EDT Legal Sex Male 12:03 PM EST Gender Identity Male 03/20/2022 9:13 AM EDT Sexual Orientation Not on file documented as of this encounter Plan of Treatment Not on file documented as of this encounter Procedures Procedure Name Priority Date/Time Associated Diagnosis Comments CT HEAD WO IV CONTRAST Routine 07/18/2010 documented in this encounter Results * CT Head wo IV Contrast (07/18/2010) Anatomical Region Laterality Modality Head, Ortho Head Computed Tomogr aphy us Historical Provider IMG CT ORDERABLES Final Resu lt documented in this encounter Visit Diagnoses Not on filedocumented in this encounter
--- OUTSIDE RECORDS SUMMARY | 2024-11-23 15:37 | XMS_ITS | Encounter Summary ---
Author Organization [facility] and [facility] Address [address] [place] [phone] Care Team Providers Care Dialysis Technician Name Role Phone Unavailable Primary Care Provider Unavailabl e Reason for Referral * Imaging (Routine) - Closed Specialty Diagnoses / Procedures Referred By Gwen oliva Referred To Contact Diagnostic Radiology Procedures MRA Brain without IV Contrast [facility] [address] [place] [address] Phone: tel: fax: Referral ID Status Reason Start Date Expiration Date Visits Re quested Visits Authorized [id number] Closed 10/31/2021 10/31/2022 1 1 * Imaging (Routine) - Closed Specialty Diagnoses / Procedures Referred By Gwen oliva Referred To Contact Diagnostic Radiology Procedures CT Head wo IV Contrast [facility] [address] [place] [address] Phone: tel: fax: Referral ID Status Reason Start Date Expiration Date Visits Re quested Visits Authorized [id number] Closed 10/31/2021 10/31/2022 1 1 Encounter Details Date Type Department Care Team (Late st Contact Info) Description 10/31/2021 Scanned Document [facility] [address] [place] [address] Freddie Davis . Social History Tobacco Use [...] Comments CT HEAD WO IV CONTRAST Routine 04/05/2016 MRA BRAIN WO IV CONTRAST Routine 08/20/2015 documented in this encounter Results * CT Head wo IV Contrast (04/05/2016) Anatomical Region Laterality Modality Head, Ortho Head Computed Tomogr aphy us Historical Provider IMG CT ORDERABLES Final Resu lt * MRA Brain without IV Contrast (08/20/2015) Anatomical Region Laterality Modality Head, Vascular Magnetic Resonan ce us Historical Provider IMG MRI ORDERABLES Final Res ult documented in this encounter Visit Diagnoses Not on filedocumented in this encounter
[2024-11-23 15:48] LABS: MANUAL DIFF FLAG NO
[2024-11-23 16:12] LABS: Basophils Percent Auto 0.5 % (0-2); Eosinophils Absolute Auto 0.1 X10*3/uL (0.0-0.4); Eosinophils Percent Auto 1.1 % (0-4); Hematocrit 32.1 % (42.0-52.0); Imm Gran Abs Auto 0.01 X10*3/uL (0.00-0.03); Imm Gran Pct Auto 0.2 % (0.0-0.4); Lymphocytes Absolute Auto 1.3 X10*3/uL (1.2-4.9); Lymphocytes Percent Auto 23.6 % (20-40); Mean Corpuscular HGB Conc 31.2 g/dl (31.0-36.0); Mean Corpuscular Hemoglobin 29.2 pg (27.0-33.0); Mean Corpuscular Volume 93.6 fL (80.0-98.0); Mean Platelet Volume 9.1 fL (9.4-12.4); Monocytes Absolute Auto 0.7 X10*3/uL (0.1-1.2); Monocytes Percent Auto 11.7 % (2-11); Neutrophils Absolute Auto 3.6 x10*3/uL (2.0-8.3); Neutrophils Percent Auto 62.9 % (45-73); Platelet Count 301 X10*3/uL (160-400); Red Blood Count 3.43 X10*6/uL (4.60-5.80); Red Cell Distribution Width 14.5 % (11.0-16.0); White Blood Count 5.6 X10*3/uL (4.8-10.8)
[2024-11-23 16:47] LABS: Alanine Aminotransferase 22 U/L (0-40); Albumin Level 4.4 g/dL (3.5-5.0); Alkaline Phosphatase 37 U/L (39-117); Anion Gap 19 (12-20); Aspartate Amino Transferase 38 U/L (5-37); Bilirubin Total 0.2 mg/dL (0.0-1.0); Blood Urea Nitrogen 24 mg/dL (9-16); Calcium 9.4 mg/dL (8.4-10.2); Carbon Dioxide 23 mmol/L (22-29); Chloride 103 mmol/L (96-108); Estimated Glomerular Filt Rate 57; Glucose Fasting 89 mg/dL (60-99); Iron 20 mcg/dL (45-160); Percent Iron Saturation 5 % (15-50); Potassium 4.3 mmol/L (3.3-5.1); Sodium 141 mmol/L (135-145); Total Iron Binding Capacity 375 mcg/dL (228-428); Total Protein 7.9 g/dL (6.5-8.0); Unsaturated Iron Binding 355 ug/dL
[2024-11-23 17:19] LABS: Folate 15.2 ng/mL (> or = 4.0); Vitamin B12 750 pg/mL (200-900)
== END 2024-11-23 15:35 | disposition home or self-care (01) ==
LOC: HO.LAB 15:34
PROVIDERS: PCP Internal Medicine
DX: K57.90 Diverticulosis of intestine, part unspecified, without perforation or abscess without bleeding (principal); D53.9 Nutritional anemia, unspecified; F10.90 Alcohol use, unspecified, uncomplicated; E61.1 Iron deficiency
CPT/HCPCS: 36415; 80053; 82607; 82746; 83540; 85025

== ENCOUNTER 2024-11-26 15:09 | Outpatient (AMB) | payer OTHER, SELFPAY ==
--- OUTSIDE RECORDS SUMMARY | 2024-11-26 15:11 | XMS_ITS | Encounter Summary ---
Author Organization [facility] and [facility] Address [address] [place] [phone] Care Team Providers Care Technology Education Instructor Name Role Phone Unavailable Primary Care Provider Unavailabl e Reason for Visit * Reason Comments Triage Encounter Details Date Type Department Care Team ([facility] Contact Info) Description 07/24/2023 Telephone [facility] 800 [facility] [place], [place] [address] Saravanan Kaiser MD 800 [place] [phone] Triage Social History Tobacco Use [...] consult with her since she is in [place] and that the pt is in [place], [place]. She states that he told her the insurance would cover visit because he is the only specialist in aneurysm in [facility] located in [place]. Checked with Field Organizer Faby who is checking with Alma Rosa. * Telephone Encounter - Esthela Samson - 07/24/2023 9:58 AM EDT Rebecca called stating that her dad is currently admitted at [facility] for GI bleeding. She asked if you can give her a call back because they are trying to stop his Asprin. Please advise Ms. Fernandez's Number: [phone] documented in this encounter Plan of Treatment Not on file documented as of this encounter Visit Diagnoses Not on filedocumented in this encounter
--- OUTSIDE RECORDS SUMMARY | 2024-11-26 15:11 | XMS_ITS ---
Author Organization [facility] Address [address] [place] [address] Care Team Providers Care Paper Cutter Operator Name Role Phone Gabbi Washington MD Primary Care Provider Ryan Ansari Jr Unavailable [phone] REASON FOR VISIT rectal bleeding PROBLEMS Problem Type ICD Code Onset Dates Problem Status W/U Status Risk SNOMED Code Notes Problem Diverticulosis of large intestine without perforation or abscess without bleeding (K57.30) Active confirmed Diverticul ar disease of colon (497597507) Encounters Encounter Location Date Provider Diagnosis [facility] Outpatient [address] [place], [place] [id number] 09/30/2023 Ryan Mendez Jr GI bleed K92.2 and Diverticulosis of large intestine without perforation or abscess without bleeding K57.30 ASSESSMENTS Encounter Date Diagnosis Assessment Notes Treatment Notes Treatment Clinical Notes 09/30/2023 GI bleed (ICD-10 - K92.2) 09/30/2023 Diverticulosis of large intestine without perforation or abscess without bleeding (ICD-10 - K57.30) PLAN OF TREATMENT No Information
--- OUTSIDE RECORDS SUMMARY | 2024-11-26 15:11 | XMS_ITS | Encounter Summary ---
Author Organization [facility] and [facility] Address [address] [place] [phone] Care Team Providers Care User Interface Designer Name Role Phone Unavailable Primary Care Provider Unavailabl e Encounter Details Date Type Department Care Team (Late st Contact Info) Description 04/09/2016 Scanned Document [facility] [address] [place] [address] Saravanan Kaiser MD [address] [place] [phone] Social History Tobacco Use Types Packs/Day Years [...]
--- OUTSIDE RECORDS SUMMARY | 2024-11-26 15:12 | XMS_ITS | Encounter Summary ---
Author Organization [facility] and [facility] Address [address] [place] [phone] Care Team Providers Care Naphthalene Still Operator Name Role Phone Unavailable Primary Care Provider Unavailabl e Reason for Visit * Reason Comments Appointment [facility] Encounter Details Date Type Department Care Team ([facility] Contact Info) Description 11/01/2021 Telephone [facility] 800 [facility] 800 [place], [place] [address] Saravanan Kaiser MD 800 [place] [phone] Appointment ([facility]) Social History Tobacco Use Types [...] appointment notes): re-establish care after stent-coiling at [facility] documented in this encounter Plan of Treatment Not on file documented as of this encounter Visit Diagnoses Not on filedocumented in this encounter
--- OUTSIDE RECORDS SUMMARY | 2024-11-26 15:12 | XMS_ITS ---
Author Organization [facility] Address [address] [place] [address] Care Team Providers Care Automation Engineer Name Role Phone Gabbi Washington MD Primary Care Provider Ryan Ansari Jr Unavailable [phone] REASON FOR VISIT blood work Encounters Encounter Location Date Provider Diagnosis [facility] [address] [place] [address] 09/02/2023 Ryan Mendez Jr PLAN OF TREATMENT No Information
--- OUTSIDE RECORDS SUMMARY | 2024-11-26 15:12 | XMS_ITS | Encounter Summary ---
Author Organization [facility] and [facility] Address [address] [place] [phone] Care Team Providers Care Exhauster Name Role Phone Unavailable Primary Care Provider Unavailabl e Reason for Referral * Imaging (Routine) - Closed Specialty Diagnoses / Procedures Referred By Gwen oliva Referred To Contact Diagnostic Radiology Procedures CT Head wo IV Contrast [facility] 800 [facility] [address] [place] [address] Phone: tel: fax: Referral ID Status Reason Start Date Expiration Date Visits Re quested Visits Authorized [id number] Closed 11/07/2021 11/07/2022 1 1 Encounter Details Date Type Department Care Team (Late Contact Info) Description 11/07/2021 Scanned Document Neurosurgery at 800 [facility] [address] [place] [address] Freddie Davis . Social History Tobacco Use [...]
--- OUTSIDE RECORDS SUMMARY | 2024-11-26 15:12 | XMS_ITS | Clinical Summary ---
Author Organization [facility] Address [address] [place] [phone] Phone Care Team Providers Care Decorative Engraver Apprentice Name Role Phone Unavailable Primary Care Provider [...]
--- OUTSIDE RECORDS SUMMARY | 2024-11-26 15:12 | XMS_ITS | Patient Health Record ---
Author Organization [facility] Address [address] [place] [address] Care Team Providers Care Vice President Sales And Marketing Name Role Phone Gabbi Washington MD Primary Care Provider Ryan Ansari Jr Unavailable ALLERGIES No Known Allergies REASON FOR REFERRAL No Information MEDICATIONS Medication SIG (Take, Route, Frequency, Duration) Notes Start Date End Date Status Iron (Ferrous Sulfate) 325 (65 Fe) MG 1 tablet Orally Three times a Week for 30 day(s) 08/11/2023 Active Vitamin D (Cholecalciferol) 25 MCG (1000 UT) 1 capsule Orally Once a day for 30 day(s) 08/11/2023 Active Montelukast Sodium 10 MG TAKE 1 TABLET B Y MOUTH AT BEDTIME Oral for 90 Active Aspirin Low Dose 81 MG CHEW 1 TABLET BY MOUTH EVERY DAY Oral for 30 Active MiraLax (colon prep) 17 GM/SCOOP mixed with Gatorade or Crystal Light Orally begin at 5:00 p.m. the day before the procedure for 1 day 08/11/2023 Active MiraLax (colon prep) 8.3 ounce ((238) grams mixed with Gatorade or Crystal Light orally begin at 5:00 p.m. the day before the procedure for 1 day 08/14/2023 Active Lisinopril 20 MG TAKE 1 TABLET BY CHANDLER TH DAILY Oral for 90 Active Vitamin C 500 MG as directed Orally 08/11/2023 Active Dulcolax (colon prep) 5 MG take at 3:00 p.m and 7:00p.m. Orally two tablets twice a day for one day for 1 day 08/14/2023 Active IMMUNIZATIONS Vaccine Route Administration Date Status Comme nts Influenza Unknown 08/11/2023 Refused SOCIAL HISTORY Sex Assigned At : Social History Observation Description Sex Assigned At Unknown Alcohol Screen Question Answer Notes Did you have a drink contain ing alcohol in the past year? Yes How often did you have a dri nk containing alcohol in the past year? 2 to 4 times a month (2 points) How many drinks did you have on a typical day when you were drinking in the past year? 5 or 6 drinks (2 points) Points 4 Interpretation Positive PROBLEMS Problem Type ICD Code Onset Dates Problem Status W/U Status Risk SNOMED Code Notes Problem Rectal bleeding (K62.5) Active confirmed [id number] Problem Diverticulosis of large intestine without perforation or abscess without bleeding (K57.30) Active confirmed Diverticul ar disease of colon (095712948) Problem Diverticulosis of large intestine without perforation or abscess with bleeding (K57.31) Active confirmed Hemorrhage of colon due to diverticulosis (602950116644187) PLAN OF TREATMENT Pending Test Test Name Order Date CBC w/o DIFF 08/11/2023 Future Test Test Name Order Date COLONOSCOPY 02/16/2015 COLONOSCOPY 08/11/2023 Insurance Providers Payer Name Payer Address Payer Phone Subscriber Number Group Number Insured Name Patient Relationship to Insured Coverage Start Date Coverage End Date [employer] [address] [place] [address] [id number] LAURA OTTO Self - patient is the insured MEDICAL (GENERAL) HISTORY Medical History History ICD Code Diverticular disease with bleeding Hypertension Asthma Seasonal allergic rhinitis Brain aneurysm Hyperlipidemia Surgical History Surgery Date(Month/Year) Inguinal hernia repair Embolization of brain aneurysm Left knee surgery
--- OUTSIDE RECORDS SUMMARY | 2024-11-26 15:12 | XMS_ITS | Encounter Summary ---
Author Organization [facility] and [facility] Address [address] [place] [phone] Care Team Providers Care Cut Off Saw Tender Metal Name Role Phone Unavailable Primary Care Provider Unavailabl e Reason for Referral * Imaging (Routine) - Closed Specialty Diagnoses / Procedures Referred By Gwen oliva Referred To Contact Diagnostic Radiology Procedures MRA Brain without IV Contrast [facility] [address] [place] [address] Phone: tel: fax: Referral ID Status Reason Start Date Expiration Date Visits Re quested Visits Authorized [id number] Closed 10/31/2021 10/31/2022 1 1 * Imaging (Routine) - Closed Specialty Diagnoses / Procedures Referred By Gwen oliva Referred To Contact Diagnostic Radiology Procedures CT Head wo IV Contrast [facility] [address] [place] [address] Phone: tel: fax: Referral ID Status Reason Start Date Expiration Date Visits Re quested Visits Authorized [id number] Closed 10/31/2021 10/31/2022 1 1 Encounter Details Date Type Department Care Team (Late st Contact Info) Description 10/31/2021 Scanned Document [facility] at [address] [place] [address] Freddie Davis . Social History Tobacco Use [...]
--- NOTE | 2024-11-26 15:37 | A.OFFPC_ITS ---
Vital Signs 11/26/24 15:38 Height 5 ft 8 in Weight 198 lb 4 oz BMI 30.1 BP 130/70 Blood Pressure Location Lt brachial Position Sitting Pulse 75 Pulse Source Pulse Oximeter Temp 97.5 F Temp Source Skin Pulse Oximetry (%) 95 Oxygen Delivery Method Room Air Intake Visit Reasons: Anemia F/U & Disability Paperwork Intake Note: Patient is here to follow up on Anemia and disability paperwork. 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 Nebulizer Replacement kit) As directed Tobacco use date assessed: 11/26/24 Dental Screening Dental Screen Date: 10/27/24 HPI Anemia F/U & Disability Paperwork HPI Details The patient is a 64-year-old male with significant past medical history of microcytic anemia, alcohol use disorder, iron-deficiency, diverticulosis, hypertension and asthma Patient hadrecent labs done, here to discuss Patient was noted to have some improvement in his H&H since started taking iron tablet However the patient reports that he stopped taking them recently due to constipation Discussed with the patient about taking something for constipation instead of stopping the iron tablets Colace 100 mg b.i.d. was ordered and senna tabs at bedtime p.r.n. The patient was encouraged to start taking his iron tablets again and to increase his fluids and fiber in the diet The patient reports a ongoing dry cough, reports that he only smokes once in a while and he does not have any other respiratory symptoms He denies shortness of breath, chest pain, heart palpitation, and dizziness Discussed with patient about recent disability paperwork and the patient reports that he is waiting for a form from his job [facility] Medical History History of diverticulosis Seasonal allergies Osteoarthritis of left knee Tubular adenoma of colon Hypertension Hypercholesterolemia Obesity (BMI 30-39.9) Brain aneurysm Asthma Surgical History History of knee surgery Hx of brain surgery Hx of colonoscopy History of inguinal hernia repair Family History Father Esophageal cancer Mother Diabetes Hypertension Stroke Maternal Uncle Throat cancer Social History Household Members: Children Housing: Apartment Do you presently have visiting nurse or other home services: No Alcohol intake: current Alcohol intake frequency: a few times a month Patient Tobacco Use Status: Current someday Tobacco user Tobacco use type: Cigarette Cigarettes Per Day: 1 e-Cigarette/Vaping Use: Never Used Second Hand Smoke Exposure: Yes Substance Use Type: Marijuana service: No Current occupational status: employed Current occupation: rt handed Cognitive needs: No Hearing needs: No Vision needs: No Questionnaire Thrive Questionnaire Date Thrive assessed: 10/27/24 FELIX-7 AMB Questionnaire FELIX-7 Date FELIX - 7 assessed: 10/27/24 Source: Developed by Drs. Ernesto Ogden, Elise Sierra, Onofre Qiu and colleagues, with an educational rhona from [employer]. Review of Systems Const Details: Denies chills, Denies fatigue, Denies fever(s), Denies headache(s) and Denies weakness HEENT Denies change in vision, Denies dizziness, Denies headache(s), Denies hearing loss, Denies nasal congestion, Denies sinus pain, Denies sinus pressure and Denies sore throat Card Denies chest pain, Denies lightheadedness, Denies dyspnea and Denies other (palpitations) Resp + dry cough, Denies dyspnea and Denies wheezing GI Denies abdominal pain, Denies melena, Denies hematochezia, Denies dyspepsia and Denies nausea + constipation Denies hematuria and Denies dysuria Musc Denies abnormal gait, Denies myalgias, +arthralgias (bilateral knee pain), Denies numbness and Denies tingling Skin/Breast Denies rash, Denies unusual bruising and Denies wounds Neuro Denies abnormal gait, Denies dizziness, Denies headache(s), Denies memory loss, Denies numbness, Denies Sensory deficit (Neuro), Denies tingling and Denies weakness Psych Denies anxiety, Denies depression and Denies memory loss Endo Denies cold intolerance, Denies fatigue, Denies heat intolerance, Denies polydipsia and Denies polyuria Dank/Lymph Denies easy bleeding and Denies easy bruising Aller/Immun Denies wheezing Physical exam (Primary Care) Vital Signs: Last Vital Signs Temp 97.5 F 11/26/24 15:38 Pulse 75 11/26/24 15:38 BP 130/70 11/26/24 15:38 Pulse Ox 95 11/26/24 15:38 Oxygen Delivery Method Room Air 11/26/24 15:38 BMI result Body Mass Index 30.1 Tobacco/Smoking Status: Tobacco use Status Tobacco use date assessed 11/26/24 11/26/24 15:41 Patient Tobacco Use Status Current someday Tobacco 11/26/24 15:41 Tobacco use type Cigarette 11/26/24 15:41 e-Cigarette/Vaping Use Never Used 11/26/24 15:41 Thrive Assessment: Date of Thrive Assessment Date Thrive assessed 10/27/24 11/26/24 15:41 Const Other: General: no acute distress, well developed, alert and awake Nutritional Appearance: well nourished Orientation/consciousness: patient oriented x3 HENMT Head: Yes normocephalic and Yes atraumatic Ears: hearing grossly normal bilaterally and TM's normal bilaterally General nose exam: Normal external nose present and Normal nares present Mouth: Normal oral and palatal mucosa present and moist mucous membranes Eyes Pupils: Equal, round and reactive pupils present and Pupil accommodation reflex normal Neck Neck: Yes normal visual inspection, Yes no lymphadenopathy Thyroid: Thyroid normal Resp Effort & Inspection: normal respiratory effort Auscultation: clear to auscultation bilaterally Cardio Rate: regular rate Rhythm: regular rhythm Heart sounds: S1 normal heart sound present, S2 normal heart sound present, no gallops, no murmurs and no rubs GI Palpation (GI): Abdomen is soft and nontender to palpation Auscultation: normal bowel sounds General: Yes no CVA tenderness Back/Spine/Pelvis Back: no CVA tenderness Cervical Spine: cervical ROM normal and No Cervical spine tenderness Thoracic/Lumbar Spine: No lumbar tenderness other: left knee pain Skin General: warm and dry. Normal skin color. Normal skin turgor Lesions: no lesions Nails: normal Neuro General: patient oriented x3, gait normal Cranial nerves: Yes Equal, round and reactive pupils present Cognition (Neuro): normal cognition Gait exam (Neuro): Normal gait present Extrem General: Yes normal to inspection, No edema and No calf tenderness Psych Appearance: grossly normal Affect: normal affect Attitude: cooperative Thought process: Normal thought process present Results Reviewed Results Reviewed: Laboratory Tests 11/23/24 15:47 WBC 5.6 RBC 3.43 L D Hgb 10.0 L D Hct 32.1 L D MCV 93.6 MCH 29.2 RDW 14.5 Plt Count 301 D Sodium 141 Potassium 4.3 Chloride 103 Carbon Dioxide 23 Anion Gap 19 BUN 24 H Creatinine 1.28 Estimated GFR 57 Iron 20 L TIBC 375 % Saturation 5 L Unsat Iron Binding 355 AST 38 H ALT 22 Alkaline Phosphatase 37 L Vitamin B12 750 Folate 15.2 Coding Level of Care Code Est Pt Level 4 (06527) Diagnoses Iron deficiency E61.1 Cough, unspecified type R05.9 Cough type: unspecified Alcohol use disorder F10.90 Constipation, unspecified constipation type K59.00 Constipation type: unspecified constipation type Essential hypertension I10 Hypertension type: essential hypertension Mild intermittent asthma with acute exacerbation J45.21 Asthma complication type: with acute exacerbation Asthma persistence: intermittent Asthma severity: mild Smoker F17.200 SI (sacroiliac) pain M53.3 Osteoarthritis of left knee, unspecified osteoarthritis type M17.12 Osteoarthritis type: unspecified Time Spent (min) 31 Assessment & Plan Assessment & Plan (1) Iron deficiency: Code(s): E61.1 - Iron deficiency Category: Medical Plan: H&H improved since started the iron tablet. However the patient reported that he recently stopped taking the medication due to constipation Discussed with the patient about taking something for constipation instead of stopping the iron tablets Colace 100 mg b.i.d. was ordered and senna tabs at bedtime p.r.n. The patient was encouraged to start taking his iron tablets again and to increase his fluids and fiber in the diet (2) Cough: Code(s): R05.9 - Cough, unspecified Category: Medical Qualifiers: Cough type: unspecified Qualified Code(s): R05.9 - Cough, unspecified Plan: The patient reports ongoing dry cough, reports that he only smokes once in a while and he does not have any other respiratory symptoms Benzonatate 100 mg b.i.d. p.r.n. ordered Encouraged smoking cessation (3) Alcohol use disorder: Code(s): F10.90 - Alcohol use, unspecified, uncomplicated Category: Medical Plan: Discussed with patient about stopped drinking because this plays a role in his anemia as well (4) Constipation: Code(s): K59.00 - Constipation, unspecified Category: Medical Qualifiers: Constipation type: unspecified constipation type Qualified Code(s): K59.00 - Constipation, unspecified Plan: Colace 100 mg b.i.d. and senna tabs at bedtime p.r.n. Increased fluids and dietary fiber (5) Hypertension: Code(s): I10 - Essential (primary) hypertension Category: Medical Qualifiers: Hypertension type: essential hypertension Qualified Code(s): I10 - Essential (primary) hypertension Plan: Blood pressure within goal. Reinforced low-sodium diet Continue lisinopril 10 mg daily (6) Asthma: Code(s): J45.909 - Unspecified asthma, uncomplicated Category: Medical Qualifiers: Asthma complication type: with acute exacerbation Asthma persistence: intermittent Asthma severity: mild Qualified Code(s): J45.21 - Mild intermittent asthma with (acute) exacerbation Plan: Reports ongoing dry cough. Endorse smoking Continue albuterol sulfate 90 mcg/actuation 2 puffs inhalation q.4-6 hours p.r.n. Encouraged smoking cessation (7) Smoker: Code(s): F17.200 - Nicotine dependence, unspecified, uncomplicated Category: Social Hx Plan: Encouraged smoking cessation (8) SI (sacroiliac) pain: Comment: Will obtain SI joint x-ray. Will give patient prednisone meloxicam Patient has been educated to rest and ice the affected area. Patient has been educated to utilize proper footwear well work. Will offer physical therapy. Code(s): M53.3 - Sacrococcygeal disorders, not elsewhere classified Category: Medical Plan: Intermittent flare-ups requiring NSAIDs and prednisone is at times (9) Osteoarthritis of left knee: Code(s): M17.12 - Unilateral primary osteoarthritis, left knee Category: Medical Qualifiers: Osteoarthritis type: unspecified Qualified Code(s): M17.12 - Unilateral primary osteoarthritis, left knee Plan: Intermittent flare-ups requiring NSAID and prednisone is at times Plan Patient to follow up in 3 months. Labs ordered, complete them a week before appointment Orders: Orders IRON PROFILE 3 Months E61.1 - Iron deficiency, K57.90 - Diverticulosis of intestine, part unspecified, without perforation or abscess without bleeding, F10.90 - Alcohol use, unspecified, uncomplicated, D53.9 - Nutritional anemia, unspecified, J45.21 - Mild intermittent asthma with (acute) exacerbation, E66.9 - Obesity, unspecified, E78.00 - Pure hypercholesterolemia, unspecified, I10 - Essential (primary) hypertension Lipase 3 Months E61.1 - Iron deficiency, K57.90 - Diverticulosis of intestine, part unspecified, without perforation or abscess without bleeding, F10.90 - Alcohol use, unspecified, uncomplicated, D53.9 - Nutritional anemia, unspecified , J45.21 - Mild intermittent asthma with (acute) exacerbation, E66.9 - Obesity, unspecified, E78.00 - Pure hypercholesterolemia, unspecified, I10 - Essential (primary) hypertension Lipid Panel 3 Months E61.1 - Iron deficiency, K57.90 - Diverticulosis of intestine, part unspecified, without perforation or abscess without bleeding, F10.90 - Alcohol use, unspecified, uncomplicated, D53.9 - Nutritional anemia, unspecified, J45.21 - Mild intermittent asthma with (acute) exacerbation, E66.9 - Obesity, unspecified, E78.00 - Pure hypercholesterolemia, unspecified, I10 - Essential (primary) hypertension Complete Blood Count Auto Diff 3 Months E61.1 - Iron deficiency, K57.90 - Diverticulosis of intestine, part unspecified, without perforation or abscess without bleeding, F10.90 - Alcohol use, unspecified, uncomplicated, D53.9 - Nutritional anemia, unspecified, J45.21 - Mild intermittent asthma with (acute) exacerbation, E66.9 - Obesity, unspecified, E78.00 - Pure hypercholesterolemia, unspecified, I10 - Essential (primary) hypertension Comprehensive [place]. Panel Fast 3 Months E61.1 - Iron deficiency, K57.90 - Div erticulosis of intestine, part unspecified, without perforation or abscess without bleeding, F10.90 - Alcohol use, unspecified, uncomplicated, D53.9 - Nutritional anemia, unspecified, J45.21 - Mild intermittent asthma with (acute) exacerbation, E66.9 - Obesity, unspecified, E78.00 - Pure hypercholesterolemia, unspecified, I10 - Essential (primary) hypertension TSH reflex Free T4 3 Months E61.1 - Iron deficiency, K57.90 - Diverticulosis of intestine, part unspecified, without perforation or abscess without bleeding, F10.90 - Alcohol use, unspecified, uncomplicated, D53.9 - Nutritional anemia, unspecified, J45.21 - Mild intermittent asthma with (acute) exacerbation, E66.9 - Obesity, unspecified, E78.00 - Pure hypercholesterolemia, unspecified, I10 - Essential (primary) hypertension UA CC w/rflx Micro + Cult 3 Months E61.1 - Iron deficiency, K57.90 - Diverticulosis of intestine, part unspecified, without perforation or abscess without bleeding, F10.90 - Alcohol use, unspecified, uncomplicated, D53.9 - Nutritional anemia, unspecified, J45.21 - Mild intermittent asthma with (acute) exacerbation, E66.9 - Obesity, unspecified, E78.00 - Pure hypercholesterolemia, unspecified, I10 - Essential (primary) hypertension Vitamin D 25-OH Total 3 Months E61.1 - Iron deficiency, K57.90 - Diverticulosis of intestine, part unspecified, without perforation or abscess without bleeding, F10.90 - Alcohol use, unspecified, uncomplicated, D53.9 - Nutritional anemia, unspecified, J45.21 - Mild intermittent asthma with (acute) exacerbation, E66.9 - Obesity, unspecified, E78.00 - Pure hypercholesterolemia, unspecified, I10 - Essential (primary) hypertension Medications: New benzonatate 100 mg PO BID PRN 60 caps 0RF cough R05.9 - Cough, unspecified docusate sodium (Colace) 100 mg PO BID 60 caps 0RF K59.00 - Constipation, unspecified sennosides (senna) 17.2 mg (2 x 8.6 mg) PO BEDTIME PRN 30 tabs 0RF constipation
[2024-11-26 15:38] VITALS: BP 130/70; PULSE 75; TEMP 36.4; O2SAT 95; BMI 30.1
== END 2024-11-26 16:31 | disposition home or self-care (01) ==
PROVIDERS: PCP Internal Medicine
DX: E61.1 Iron deficiency (principal); R05.9 Cough, unspecified; F10.90 Alcohol use, unspecified, uncomplicated; K59.00 Constipation, unspecified; I10 Essential (primary) hypertension; J45.21 Mild intermittent asthma with (acute) exacerbation; F17.200 Nicotine dependence, unspecified, uncomplicated; M53.3 Sacrococcygeal disorders, not elsewhere classified; M17.12 Unilateral primary osteoarthritis, left knee

== ENCOUNTER → 2024-11-26 15:09 | Outpatient (BNVA) | payer OTHER, SELFPAY | PROVIDERS: PCP Internal Medicine ==

== ENCOUNTER 2024-12-11 16:50 | Emergency (ER) | payer OTHER, SELFPAY ==
--- NOTE | ~2024-12-11 | CT_ITS ---
CLINICAL HISTORY: fall, head strike, pain CT cervical spine without contrast Comparison: None available Findings: No acute fracture of the cervical spine. No significant listhesis. Preserved cervical lordosis. Ligament calcifications are multifocal. Degenerative changes include multifocal facet arthropathy. No osseous spinal stenosis by CT. No paraspinal hematoma. Vascular calcifications noted. Please refer to head CT for paranasal sinus findings. Mild scarring emphysematous changes of the imaged lung apices, right worse than left. IMPRESSION: No acute fracture or posttraumatic malalignment of the cervical spine. This document has been electronically signed by: Chadd Carbone MD on 12/11/2024 19:41:34
--- NOTE | ~2024-12-11 | CT_ITS ---
CLINICAL HISTORY: fall, head strike, pain CT head without contrast Comparison: Head CT from 08/31/2015 Findings: No acute intracranial hemorrhage accounting for artifacts. Metal likely due to combination clips and coils for aneurysm therapy in the region of anterior communicating artery. Redemonstration of the bilateral basal ganglia mineralization. No midline shift or hydrocephalus. No arterial territorial infarction by CT of the imaged brain parenchyma. Fluid and mucosal thickening of the paranasal sinuses is right-sided predominant and new relative to comparison, with near-complete opacification of the right maxillary sinus. Imaged mastoid air cells are well aerated. Bilateral nasal bone fractures are old. No acute skull fracture. Dermal calcifications are nonspecific including over the frontal convexities. IMPRESSION: 1. No acute intracranial abnormality by CT. 2. Postprocedural changes for aneurysm treatment. 3. New fluid and mucosal thickening including right maxillary sinus, as can be seen with sinusitis. This document has been electronically signed by: Chadd Carbone MD on 12/11/2024 19:42:04
--- NOTE | ~2024-12-11 | XR_ITS ---
CLINICAL HISTORY: fall back trauma 3 views lumbar spine Comparison: None available Findings: Essentially normal heights of 5 lumbar type vertebrae. Transitional vertebral anatomy with partial and left-sided predominant sacralization of the L5 for the purposes of this dictation only. No significant listhesis. Degenerative disc changes appear most pronounced at L4-L5 and L5-S1 with disc height losses by this numbering system. Facet arthropathy is multifocal, left worse than right. Degenerative changes include the partially imaged SI joints of the partially imaged hips. Sacrum is mostly obscured, with moderate bowel-gas. IMPRESSION: 1. No acute compression fracture of the 5 lumbar vertebrae, with transitional vertebral anatomy of the lumbosacral junction. 2. No posttraumatic malalignment. 3. Degenerative including multifocal facet arthropathy, and disc changes particularly at L4-L5 and L5-S1. This document has been electronically signed by: Chadd Carbone MD on 12/11/2024 19:06:46
--- NOTE | ~2024-12-11 | CT_ITS ---
CLINICAL HISTORY: posterior rib pain fall , L scapula pain CT chest without contrast Comparison: None Findings: No mediastinal hematoma in this noncontrast study. Vascular calcifications include aorta, its branches, and coronary arteries. Mild emphysematous changes and scarring including the imaged lung apices. Mild bibasilar atelectasis and scarring. Airspace disease is multifocal predominately in the right lower lobe with ground-glass measuring up to 1.2 cm. No pleural effusion or pneumothorax. Cholelithiasis in the imaged abdomen. Degenerative changes include the imaged shoulders and imaged spine. No acute fracture. Imaged right lower rib fractures are old. IMPRESSION: 1. Airspace disease in the right lower lobe concerning for pneumonitis/pneumonia. Recommend attention on follow-up to ensure resolution. 2. No mediastinal hematoma. This document has been electronically signed by: Chadd Carbone MD on 12/11/2024 19:44:55
[2024-12-11 17:34] VITALS: BP 138/73; PULSE 79; RESP 18; TEMP 36.8; O2SAT 98; BMI 30.6
--- NOTE | 2024-12-11 17:37 | ED_ITS ---
HPI - General Adult General Chief complaint: Fall Stated complaint: neck/shoulder/upper arm pain Time Seen by Provider: 12/11/24 17:43 Source: patient and old records reviewed Mode of arrival: ambulatory Limitations: no limitations History of Present Illness ED Provider: CHRISTEN WOLF narrative: 64 yo male with PMH of BPH, anemia, HTN, HLD, asthma not on blood thinners who slipped and fell last friday while trying to clear car at [employer] - he had quite the fall where his side hit the passenger door and his neck swung. He does remember the events but unclear if he had LOC. He notes he has upper and lower back pain, neck pain and his L scapula is bruised. He has no numbness/weakness,. He finally went to urgent care today and they referred him to ED for imaging. MD complaint: fall Onset (ago): day(s) (7) Location: head, neck and back Radiation: non-radiation Severity: moderate Quality: aching Pain Consistency: constant Relieving factors: immobilization Exacerbating factors: movement Associated symptoms: denies other symptoms Treatments prior to arrival: none Related Data Previous Rx's ?Medication ?Instructions ?Recorded albuterol sulfate 2.5 mg/3 mL 2.5 mg (3 mL) inhalation Q4-6H PRN 03/02/21 (0.083 %) solution for nebulization bronchospasm #90 mL nebulizer accessories (A.I.R.S. #1 ea 03/02/21 Nebulizer Replacement kit) NEBULIZER #1 ea 04/09/21 Medial Field Administrator Knee brace #1 ea 11/05/21 lisinopril 20 mg tablet 10 mg (1/2 x 20 mg) PO DAILY #90 10/22/24 tabs ferrous sulfate 324 mg (65 mg 324 mg PO BID #60 tabs 10/23/24 iron) tablet,delayed release albuterol sulfate 90 mcg/actuation 2 puff inhalation Q4-6H PRN 10/27/24 aerosol inhaler Wheezing #8.5 grams aspirin 81 mg tablet,delayed 81 mg PO DAILY #90 tabs 11/08/24 release (Adult Low Dose Aspirin) benzonatate 100 mg capsule 100 mg PO BID PRN cough #60 caps 11/26/24 docusate sodium 100 mg capsule 100 mg PO BID #60 caps 11/26/24 (Colace) sennosides 8.6 mg tablet (senna) 17.2 mg (2 x 8.6 mg) PO BEDTIME 11/26/24 PRN constipation #30 tabs amoxicillin 875 mg-potassium 1 tab PO BID #14 tabs 12/11/24 clavulanate 125 mg tablet azithromycin 250 mg tablet See Rx Instructions PO .COMPLEX #6 12/11/24 tabs hydrocodone 5 mg-acetaminophen 325 1 tab PO Q6H PRN pain #10 tabs 12/11/24 mg tablet lidocaine 5 % topical patch 1 patch topical DAILY #30 ea 12/11/24 Allergies Allergy/AdvReac Type Severity Reaction Status Date / Time No Known Allergies Allergy Verified 12/11/24 17:42 Review of Systems Review of Systems: Constitutional : No Weight loss, No Fever, No Chills, ENT/Mouth : No Hearing loss, No Ear Pain, No Nasal Congestion, No Sinus Pain, No Hoarseness, No sore throat, No Rhinorrhea, No Swallowing Difficulty Cardiovascular : No Chest Pain, No SOB Respiratory : No Cough, No Dyspnea Gastrointestinal : No Nausea, No Vomiting, No Diarrhea, No abdominal Pain, No Hematochezia, No Melena Genitourinary : No Dysuria, No Urinary Frequency, No Hematuria, No Urinary Incontinence, Musculoskeletal : positive back pain, pos neck pain Skin : No Skin Lesions, No rash Neuro : No Weakness, No Numbness, No Paresthesias, no loss of bowel or bladder incontinence, no saddle anesthesia all other systems reviewed and are negative PMFSH Past Medical History Attestation statement: The following information was validated with the patient. Source: old records reviewed Medical History History of diverticulosis Seasonal allergies Osteoarthritis of left knee Tubular adenoma of colon Hypertension Hypercholesterolemia Obesity (BMI 30-39.9) Brain aneurysm Asthma Surgical History History of knee surgery Hx of brain surgery Hx of colonoscopy History of inguinal hernia repair Family History Family History Father Esophageal cancer Mother Diabetes Hypertension Stroke Maternal Uncle Throat cancer Social History Social History Household Members: Children Housing: Apartment Do you presently have visiting nurse or other home services: No Alcohol intake: current Alcohol intake frequency: a few times a month Patient Tobacco Use Status: Current someday Tobacco user Tobacco use type: Cigarette Cigarettes Per Day: 1 e-Cigarette/Vaping Use: Never Used Second Hand Smoke Exposure: Yes Substance Use Type: Marijuana Advance Directives: Yes Advance Directives on File: Yes Advance Directives Date on File: 07/25/23 Do you have a plan to hurt others: No Plan service: No Current occupational status: employed Current occupation: rt handed Cognitive needs: No Hearing needs: No Vision needs: No Physical Exam ED Vital Signs: Vital Signs - 24 hr 12/11/24 17:34 Temperature 98.2 F Pulse Rate 79 Respiratory Rate 18 Blood Pressure 138/73 Pulse Oximetry 98 Oxygen Delivery Method Room Air BMI result Body Mass Index 30.6 Appearance: Alert. Oriented X3. No acute distress. Eyes: Pupils equal, round and reactive to light. ENT: Pharynx normal. atraumatic Neck: c collar applied in triage, midline ttp along C4-C6 CVS: Normal heart rate and rhythm. Pulses normal. Back: ttp along midline lumbar spine no deformity noted, L scapula area old yellow purple bruise noted Respiratory: No respiratory distress. Breath sounds normal. Abdomen: Soft and nontender. Skin: Skin warm and dry. Normal skin color. Normal skin turgor. Extremities: No lower extremity edema. No calf ttp Neuro: Oriented X 3. No motor deficit. No sensory deficit. CN2-12 intact Course Course Course Narrative: RME performed by Daylin Tapia PA-C. Patient is a 64 year old assigned male at presenting to the emergency department with neck pain, head pain, and left shoulder pain after a slip and fall. Detailed physical exam and review of systems are deferred to the water valve mechanic. Imaging ordered. Patient placed back in the waiting room pending room availability and results. Medications Administered Discontinued Medications Generic Name Dose Route Start Last Admin Trade Name Freq PRN Reason Stop Dose Admin Hydrocodone Bitart/Acetaminophen 1 tab 12/11/24 17:59 12/11/24 18:35 Hydrocodone Bit/Acetam 5/325 Tablet PO 12/11/24 18:00 1 tab ONCE ONE Administration Procedures Orthopedic Splinting/Casting Injury #1: Side: left Upper Extremity Injury Location: shoulder Upper Extremity Immobilizer: sling/shoulder immobilizer Additional Comments: NV intact Medical Decision Making Medical Decision Making MDM Narrative: 64 yo male with PMH of BPH, anemia, HTN, HLD, asthma not on blood thinners here with slip and fall 7 days ago with persistent neck, back pain, bruising on scapula. He reports possible LOC and headstrike. At this time will obtain CT head/cspine, chest CT for rib/scapula injury, has benign abdominal exam and I see no bruising on his flank - lumbar xray ordered. He is NV intact distally. GCS 15 Differential Diagnosis Differential Diagnoses: The differential diagnosis associated with the presentation includes strain, sprain, fracture, contusion Admission/Observation Consideration of admission/observation: Escalation of care including admission/observation considered work up reassuring 7 days after fall stable for DC had cough but fevers resolved will put on augmentin and he can be DC home Independent Interpretation I performed an independent interpretation of an: Plain X-Ray (no trauma) and CT Scan (no head or cspine trauma, no trauma on chest CT) Radiology Impression Discussion of test interpretation with radiology: I have reviewed the radiologist's reading. External Record Review External record reviewed: Outpatient record Prescription Management I considered prescription management with: Pain Medication, Antibiotic and Other Discharge Plan Discharge Clinical Impression: Back strain Qualifiers: Encounter type: initial encounter Qualified Code(s): S39.012A - Strain of muscle, fascia and tendon of lower back, initial encounter Contusion of back Qualifiers: Encounter type: initial encounter Laterality: left Qualified Code(s): S20.222A - Contusion of left back wall of thorax, initial encounter Neck strain Qualifiers: Encounter type: initial encounter Qualified Code(s): S16.1XXA - Strain of muscle, fascia and tendon at neck level, initial encounter Patient Disposition: Home, Self-Care Instructions: Cervical Strain (ED), Contusion in Adults (ED), Back Pain (ED), Pneumonia (ED) Additional Instructions: no broken bones on xray or CT scans CT head/cspine/chest including ribs and scapula no broken bones rest and stay hydrated can return to work on Friday you have a small area of possible early infection R lung will start on antibiotics return for fevers, unable to breath, severe pain, confusion or any other concerns On amoxicillin-clavulanate, softer bowel movements are to be expected. Call your provider if you move your bowels more than 4 times a day, your bowel movements are almost all liquid, or you get a rash.? On azithromycin, call your provider if you develop new ringing in your ears, new problems hearing, dizziness, palpitations, abdominal pain, nausea, or diarrhea. Lumbar spine xray IMPRESSION: 1. No acute compression fracture of the 5 lumbar vertebrae, with transitional vertebral anatomy of the lumbosacral junction. 2. No posttraumatic malalignment. 3. Degenerative including multifocal facet arthropathy, and disc changes particularly at L4-L5 and L5-S1. Findings: No acute intracranial hemorrhage accounting for artifacts. Metal likely due to combination clips and coils for aneurysm therapy in the region of anterior communicating artery. Redemonstration of the bilateral basal ganglia mineralization. No midline shift or hydrocephalus. No arterial territorial infarction by CT of the imaged brain parenchyma. Fluid and mucosal thickening of the paranasal sinuses is right-sided predominant and new relative to comparison, with near-complete opacification of the right maxillary sinus. Imaged mastoid air cells are well aerated. Bilateral nasal bone fractures are old. No acute skull fracture. Dermal calcifications are nonspecific including over the frontal convexities. CT head IMPRESSION: 1. No acute intracranial abnormality by CT. 2. Postprocedural changes for aneurysm treatment. 3. New fluid and mucosal thickening including right maxillary sinus, as can be seen with sinusitis. CT chest Findings: No mediastinal hematoma in this noncontrast study. Vascular calcifications include aorta, its branches, and coronary arteries. Mild emphysematous changes and scarring including the imaged lung apices. Mild bibasilar atelectasis and scarring. Airspace disease is multifocal predominately in the right lower lobe with ground-glass measuring up to 1.2 cm. No pleural effusion or pneumothorax. Cholelithiasis in the imaged abdomen - can follow up as needed if you have pain. Degenerative changes include the imaged shoulders and imaged spine. No acute fracture. Imaged right lower rib fractures are old. IMPRESSION: 1. Airspace disease in the right lower lobe concerning for pneumonitis/pneumonia. Recommend attention on follow-up to ensure resolution. 2. No mediastinal hematoma. Findings: No acute fracture of the cervical spine. No significant listhesis. Preserved cervical lordosis. Ligament calcifications are multifocal. Degenerative changes include multifocal facet arthropathy. No osseous spinal stenosis by CT. No paraspinal hematoma. Vascular calcifications noted. Please refer to head CT for paranasal sinus findings. Mild scarring emphysematous changes of the imaged lung apices, right worse than left. IMPRESSION: No acute fracture or posttraumatic malalignment of the cervical spine. Prescriptions: New azithromycin 250 mg tablet See Rx Instructions .ROUTE .COMPLEX Qty: 6 0RF Rx Instructions: For 250 mg dose pack: take 500 mg today (day 1), then 250 mg for 4 days (days 2-5) hydrocodone-acetaminophen 5-325 mg tablet 1 tab PO Q6H PRN (Reason: pain) Qty: 10 0RF Rx Instructions: partial fill okay; Partial Fill upon patient request. lidocaine 5 % adhesive patch,medicated 1 patch topical DAILY Qty: 30 0RF Rx Instructions: leave on most painful area for up to 12 hrs amoxicillin-pot clavulanate 875-125 mg tablet 1 tab PO BID Qty: 14 0RF No Action aspirin [Adult Low Dose Aspirin] 81 mg tablet,delayed release (DR/EC) 81 mg PO DAILY Qty: 90 0RF lisinopril 20 mg tablet 10 mg PO DAILY Qty: 90 3RF ferrous sulfate 324 mg (65 mg iron) tablet,delayed release (DR/EC) 324 mg PO BID Qty: 60 0RF (DME) NEBULIZER See Rx Instructions .Route .MEDSUPPLY Qty: 1 0RF Rx Instructions: As directed albuterol sulfate 2.5 mg /3 mL (0.083 %) solution for nebulization 2.5 mg inhalation Q4-6H PRN (Reason: bronchospasm) Qty: 90 3RF (DME) A.I.R.S. Nebulizer Replacement Kit See Rx Instructions .ROUTE .MEDSUPPLY Qty: 1 0RF Rx Instructions: As directed (DME) Medial Field Administrator Knee brace See Rx Instructions .ROUTE .MEDSUPPLY Qty: 1 0RF Rx Instructions: n/a albuterol sulfate 90 mcg/actuation HFA aerosol inhaler 2 puff inhalation Q4-6H PRN (Reason: Wheezing) Qty: 8.5 3RF benzonatate 100 mg capsule 100 mg PO BID PRN (Reason: cough) Qty: 60 0RF docusate sodium [Colace] 100 mg capsule 100 mg PO BID Qty: 60 0RF sennosides [senna] 8.6 mg tablet 17.2 mg PO BEDTIME PRN (Reason: constipation) Qty: 30 0RF Stand Alone Forms: Work/School Release Print Language: Andorran
[2024-12-11] MEDS: HYDROcodone Bit/Acetam 5/325 TABLET 1 TAB PO (18:35)
[2024-12-11 20:16] VITALS: BP 138/73; PULSE 79; RESP 18; TEMP 36.8; O2SAT 98
== END 2024-12-11 20:17 | disposition home or self-care (01) ==
PROVIDERS: Emergency Provider Emergency Medicine; PCP Internal Medicine
DX: S39.012A Strain of muscle, fascia and tendon of lower back, initial encounter (principal); S20.222A Contusion of left back wall of thorax, initial encounter; S16.1XXA Strain of muscle, fascia and tendon at neck level, initial encounter; W00.0XXA Fall on same level due to ice and snow, initial encounter; R05.9 Cough, unspecified; Y93.29 Activity, other involving ice and snow; Y92.481 Parking lot as the place of occurrence of the external cause; Y99.9 Unspecified external cause status
CPT/HCPCS: 70450; 71250; 72100; 72125; 99283; 99284

== ENCOUNTER → 2024-12-11 17:38 | Outpatient (BNV) | payer OTHER, SELFPAY | PROVIDERS: Emergency Provider Emergency Medicine; PCP Internal Medicine; Visit Provider Radiology Neuroradiology | DX: J84.89 Other specified interstitial pulmonary diseases (principal); M54.2 Cervicalgia; J34.89 Other specified disorders of nose and nasal sinuses; M46.96 Unspecified inflammatory spondylopathy, lumbar region | CPT/HCPCS: 70450; 71250; 72100; 72125 ==

== ENCOUNTER 2025-05-12 15:21 | Outpatient (AMB) | payer OTHER, SELFPAY ==
--- OUTSIDE RECORDS SUMMARY | 2025-05-12 15:24 | XMS_ITS | Encounter Summary ---
Author Organization [facility] Address [address] [place] [id number] Care Team Providers Care Competitive Intelligence Manager Name Role Phone Unavailable Primary Care Provider Unavailabl e Encounter Details Date Type Department Care Team (Late st Contact Info) Description 04/09/2016 Scanned Document [facility] [address] [place] [address] Saravanan Kaiser MD [address] [place] [phone] Social History Tobacco Use Types Packs/Day Years [...]
--- NOTE | 2025-05-12 15:27 | A.OFFPC_ITS ---
Vital Signs 05/12/25 15:28 Height 5 ft 7 in Weight 187 lb 2 oz BMI 29.3 BP 120/68 Blood Pressure Location Lt brachial Position Sitting Pulse 68 Pulse Source Pulse Oximeter Temp 98.2 F Temp Source Temporal Artery Scan Pulse Oximetry (%) 96 Oxygen Delivery Method Room Air Intake Visit Reasons: follow up Instructor Warper Required: No Accompanied by: Self / Same As Patient Allergies No Known Allergies Allergy (Verified 05/12/25 15:58) Medication List - Last Reconciled 05/12/25 by JEFFERY Carey albuterol sulfate 2.5 mg (3 mL) inhalation Q4-6H PRN albuterol sulfate 90 mcg/actuation 2 puffs inhalation Q4-6H PRN amoxicillin-pot clavulanate 875-125 mg 1 tab PO BID aspirin (Adult Low Dose Aspirin) 81 mg PO DAILY azithromycin For 250 mg dose pack: take 500 mg today (day 1), then 250 mg for 4 days (days 2-5) benzonatate 100 mg PO BID PRN docusate sodium (Colace) 100 mg PO BID ferrous sulfate 324 mg PO BID hydrocodone-acetaminophen 5-325 mg 1 tab PO Q6H PRN lidocaine 5% 1 patch topical DAILY lisinopril 10 mg (1/2 x 20 mg) PO DAILY [Medial Pilot Submersible Knee brace n/a] [NEBULIZER As directed] nebulizer accessories (A.I.R.S. Nebulizer Replacement kit) As directed sennosides (senna) 17.2 mg (2 x 8.6 mg) PO BEDTIME PRN Tobacco use date assessed: 05/12/25 Dental Screening Dental Screen Date: 05/12/25 Did you have a dental visit in the last 12 months?: No Did you have a dental problem in the last 6 months where you did not have access to dental care?: No Was dental information given to patient?: No HPI follow up HPI Details The patient is a 64-year-old male presenting with osteoarthritis of the left knee and degenerative disc disease. The patient reports significant pain in the left knee, which has been persistent and exacerbated by physical activity. He has a history of a Castanon's cyst and moderate patellofemoral medial compartment osteoarthritis confirmed by MRI. The patient has not been engaging in regular physical therapy recently. The patient also experiences chronic back pain due to degenerative disc disease from L4 to S1, with noted degenerative changes on imaging. The pain occasionally radiates down the legs, although not consistently. He has not been performing regular stretching exercises. The patient has a history of gastrointestinal bleeding, which poses a risk when considering anti-inflammatory medications for arthritis management. He avoids NSAIDs due to this risk and has been advised to use topical treatments like diclofenac cream. The patient has a history of hypertension, currently managed with lisinopril 10 mg daily. He is encouraged to decrease salt intake. [facility] Medical History History of diverticulosis Seasonal allergies Osteoarthritis of left knee Tubular adenoma of colon Hypertension Hypercholesterolemia Obesity (BMI 30-39.9) Brain aneurysm Asthma Surgical History History of knee surgery Hx of brain surgery Hx of colonoscopy History of inguinal hernia repair Family History Father Esophageal cancer Mother Diabetes Hypertension Stroke Maternal Uncle Throat cancer Social History Household Members: Children Housing: Apartment Do you presently have visiting nurse or other home services: No Alcohol intake: current Alcohol intake frequency: a few times a month Patient Tobacco Use Status: Current someday Tobacco user Tobacco use type: Cigarette Cigarettes Per Day: 1 e-Cigarette/Vaping Use: Never Used Second Hand Smoke Exposure: Yes Substance Use Type: Marijuana Advance Directives Date on File: 07/25/23 service: No Current occupational status: employed Current occupation: rt handed Cognitive needs: No Hearing needs: No Vision needs: No Questionnaire PHQ-9 Over the last 2 weeks, how often have you been bothered by any of the following problems? 1. Little interest or pleasure in doing things: not at all 2. Feeling down, depressed, or hopeless: not at all 3. Trouble falling or staying asleep, or sleeping too much: not at all 4. Feeling tired or having little energy: not at all 5. Poor appetite or overeating: not at all 6. Feeling bad about yourself - or that you are a failure or have let yourself or your family down: not at all 7. Trouble concentrating on things, such as reading the newspaper or watching television: not at all 8. Moving or speaking so slowly that other people could have noticed. Or the opposite - being so fidgety or restless that you have been moving around a lot more than usual: not at all 9. Thoughts that you would be better off or of hurting yourself in some way: not at all Total score: 0 Source: Developed by Drs. Ernesto Ogden, Elise Sierra, Onofre Qiu and colleagues, with an educational rhona from [employer]. Thrive Questionnaire Date Thrive assessed: 05/12/25 I am a: Patient What is your living situation today?: I have a steady place to live Within the past 12 months, did the food you bought not last and you didn't have the money to get more?: Never true Within the past 12 months, did you worry whether your food would run out before you got money to buy more?: Never true Do you have trouble paying for medicines?: No Do you have trouble getting transportation to medical appointments?: No Do you have trouble paying your heating and electricity bill?: No Do you have trouble taking care of your child, family member or friend?: No Do you have trouble with day-to-day activities such as bathing, preparing meals, shopping, managing finances, etc.?: No Are you currently unemployed and looking for a job?: No Are you interested in more education?: No Please select the resources that you would like help with: None Currently or been in a relationship where the following occur: No concerns reported THRIVE Score: 0 AUDIT C Alcohol Use Questionnaire (AUDIT-C) 1. How often do you have a drink containing alcohol?: 4 or more times a week 2. How many drinks containing alcohol do you have on a typical day when you are drinking?: 1 or 2 3. How often do you have six or more drinks on one occasion?: Never Total Score: 4 FELIX-7 AMB Questionnaire FELIX-7 Date FEILX - 7 assessed: 05/12/25 Feeling nervous, anxious, or on edge: 0 = Not at all Not being able to stop or control worryin = Not at all Worrying too much about different things: 0 = Not at all Trouble relaxin = Not at all Being so restless that it is hard to sit still: 0 = Not at all Becoming easily annoyed or irritable: 0 = Not at all Feeling afraid as if something awful might happen: 0 = Not at all Total FELIX-7 score (0-4 normal; 5-9 mild; 10-14 moderate; 15-21 severe): 0 Source: Developed by Drs. Ernesto Ogden, Elise Sierra, Onofre Qiu and colleagues, with an educational rhona from [employer]. Review of Systems Const Denies headache(s) Eyes Denies loss of vision ENT Denies vertigo, Denies dizziness, Denies headache(s) and Denies sore throat Card Denies chest pain, Denies leg edema and Denies lightheadedness Resp Denies cough, Denies hemoptysis and Denies wheezing GI Denies abdominal pain, Denies melena, Denies constipation, Denies diarrhea and Denies vomiting Denies dysuria, Denies urinary frequency and Denies urinary urgency Musc Reports back pain, Reports arthralgias (Left knee), Denies joint swelling, Denies numbness, Reports radiating pain into limb (Occasional-alternating limb) and Denies tingling Neuro Denies Abnormal speech present, Denies behavioral changes, Denies vertigo, Denies dizziness, Denies headache(s), Denies loss of vision, Denies memory loss, Denies numbness and Denies tingling Psych Denies anxiety, Denies behavioral changes, Denies depression, Denies memory loss and Denies panic attacks Dank/Lymph Denies easy bleeding and Denies easy bruising Aller/Immun Denies wheezing Physical exam (Primary Care) Vital Signs: Last Vital Signs Temp 98.2 F 05/12/25 15:28 Pulse 68 05/12/25 15:28 BP 120/68 05/12/25 15:28 Pulse Ox 96 05/12/25 15:28 Oxygen Delivery Method Room Air 05/12/25 15:28 BMI result Body Mass Index 29.3 Tobacco/Smoking Status: Tobacco use Status Tobacco use date assessed 05/12/25 05/12/25 15:34 Patient Tobacco Use Status Current someday Tobacco 05/12/25 15:34 Tobacco use type Cigarette 05/12/25 15:34 e-Cigarette/Vaping Use Never Used 05/12/25 15:34 PHQ-9: PHQ-9 Score PHQ-9: Total score 0 05/12/25 16:05 Thrive Assessment: Date of Thrive Assessment Date Thrive assessed 05/12/25 05/12/25 15:34 Currently or been in a relationship where the following occur: No concerns reported Const General: healthy appearing, no acute distress, alert and awake Nutritional Appearance: well nourished Orientation/consciousness: oriented to person, oriented to place and oriented to time HENMT Ears: TM's normal bilaterally General nose exam: Normal nasal mucous membranes and turbinates present Eyes Conjunctivae: conjunctivae normal Sclerae: sclerae normal Pupils: Equal, round and reactive pupils present Neck Neck: Yes no lymphadenopathy and Yes no JVD Thyroid: Thyroid normal Carotids: no bruits Resp Effort & Inspection: normal respiratory effort and not tachypneic Auscultation: no crackles, no rales, no rhonchi and no wheezes Cardio Rate: regular rate Rhythm: regular rhythm Heart sounds: no murmurs and normal S1 and S2 GI Palpation (GI): Soft to palpation, nontender, no hepatomegaly and no splenomegaly Auscultation: normal bowel sounds General: Yes no CVA tenderness Back/Spine/Pelvis Back: no CVA tenderness Thoracic/Lumbar Spine: No lumbar spinal tenderness Skin General skin exam: no rashes or lesions noted and dry skin Neuro General: oriented to person, oriented to place and oriented to time Cranial nerves: Yes Equal, round and reactive pupils present Speech: No Abnormal speech present Gait exam (Neuro): Normal gait present Motor exam (neuro): no tremor noted Extrem Right upper extremity: full ROM Left upper extremity: full ROM Right lower extremity: full ROM; no edema Left lower extremity: full ROM and knee Details: no tenderness and no swelling; no edema Psych Mental Status: mental status grossly normal Speech and movement: Normal speech and movement present Affect: normal affect Attitude: cooperative Thought process: Normal thought process present Coding Level of Care Code Est Pt Level 4 (02683) Diagnoses Alcohol use disorder F10.90 Essential hypertension I10 Hypertension type: essential hypertension Hypercholesterolemia E78.00 Impaired glucose tolerance R73.02 Obesity (BMI 30-39.9) E66.9 Constipation, unspecified constipation type K59.00 Constipation type: unspecified constipation type Anemia, macrocytic D53.9 Iron deficiency E61.1 Osteoarthritis of left knee, unspecified osteoarthritis type M17.12 Osteoarthritis type: unspecified Smoker F17.200 Mild intermittent asthma with acute exacerbation J45.21 Asthma severity: mild Asthma persistence: intermittent Asthma complication type: with acute exacerbation Bilateral low back pain with bilateral sciatica, unspecified chronicity M54.42; M54.41 Chronicity: unspecified Back pain laterality: bilateral Sciatica presence: with sciatica Sciatica laterality: bilateral sciatica Time Spent (min) 38 Assessment & Plan Assessment & Plan (1) Alcohol use disorder: Code(s): F10.90 - Alcohol use, unspecified, uncomplicated Category: Medical (2) Hypertension: Code(s): I10 - Essential (primary) hypertension Category: Medical Qualifiers: Hypertension type: essential hypertension Qualified Code(s): I10 - Essential (primary) hypertension (3) Hypercholesterolemia: Code(s): E78.00 - Pure hypercholesterolemia, unspecified Category: Medical (4) Impaired glucose tolerance: Code(s): R73.02 - Impaired glucose tolerance (oral) Category: Medical (5) Obesity (BMI 30-39.9): Code(s): E66.9 - Obesity, unspecified Category: Medical (6) Constipation: Code(s): K59.00 - Constipation, unspecified Category: Medical Qualifiers: Constipation type: unspecified constipation type Qualified Code(s): K59.00 - Constipation, unspecified (7) Anemia, macrocytic: Code(s): D53.9 - Nutritional anemia, unspecified Category: Medical (8) Iron deficiency: Code(s): E61.1 - Iron deficiency Category: Medical (9) Osteoarthritis of left knee: Code(s): M17.12 - Unilateral primary osteoarthritis, left knee Category: Medical Qualifiers: Osteoarthritis type: unspecified Qualified Code(s): M17.12 - Unilateral primary osteoarthritis, left knee (10) Smoker: Code(s): F17.200 - Nicotine dependence, unspecified, uncomplicated Category: Social Hx (11) Asthma: Code(s): J45.909 - Unspecified asthma, uncomplicated Category: Medical Qualifiers: Asthma severity: mild Asthma persistence: intermittent Asthma complication type: with acute exacerbation Qualified Code(s): J45.21 - Mild intermittent asthma with (acute) exacerbation (12) Low back pain: Code(s): M54.50 - Low back pain, unspecified Category: Medical Qualifiers: Chronicity: unspecified Back pain laterality: bilateral Sciatica presence: with sciatica Sciatica laterality: bilateral sciatica Qualified Code(s): M54.42 - Lumbago with sciatica, left side; M54.41 - Lumbago with sciatica, right side Plan For the management of osteoarthritis of the left knee, the patient is advised to engage in physical therapy to strengthen the muscles around the joint. Topical diclofenac cream is recommended as an alternative to oral NSAIDs due to the patient's history of gastrointestinal bleeding. For degenerative disc disease, conservative management with physical therapy is suggested to alleviate symptoms and improve function. Gabapentin is prescribed to manage nerve pain, with instructions to start at night to assess tolerance. The patient's hypertension is managed with lisinopril, now adjusted to 10 mg due to adequate blood pressure control. Regular monitoring of blood pressure is advised to ensure continued control. Encouraged patient get labs done as soon as he can to evaluate is health status further. Continue ferrous sulfate 325 mg b.i.d. Continue MDI 4-6 hours p.r.n. Encouraged smoking cessation Encouraged increasing fluids and fiber. Continue senna tabs p.r.n. at bedtime Patient was informed and verbally consented to the use of an ambient scribe for clinic note documentation during this visit. Medications: New gabapentin 100 mg PO TID 90 tabs 0RF lisinopril 10 mg PO DAILY 90 tabs 3RF Discontinued lisinopril Discontinued Reason: Doctor's Order 10 mg (1/2 x 20 mg) PO DAILY 90 tabs 3RF Patient Instructions: Follow up in 4 months
[2025-05-12 15:28] VITALS: BP 120/68; PULSE 68; TEMP 36.8; O2SAT 96; BMI 29.3
== END 2025-05-12 16:30 | disposition home or self-care (01) ==
LOC: HO.HMCH 15:22
PROVIDERS: PCP Internal Medicine
DX: I10 Essential (primary) hypertension (principal); F10.90 Alcohol use, unspecified, uncomplicated; E78.00 Pure hypercholesterolemia, unspecified; R73.02 Impaired glucose tolerance (oral); Z68.29 Body mass index [BMI] 29.0-29.9, adult; E66.9 Obesity, unspecified; K59.00 Constipation, unspecified; D53.9 Nutritional anemia, unspecified; E61.1 Iron deficiency; M17.12 Unilateral primary osteoarthritis, left knee; F17.200 Nicotine dependence, unspecified, uncomplicated

== ENCOUNTER 2025-07-22 14:43 | Outpatient (AMB) | payer OTHER, SELFPAY ==
--- OUTSIDE RECORDS SUMMARY | 2025-07-22 14:46 | XMS_ITS | Encounter Summary ---
Author Organization [facility] and [facility] Address [address] [place] [id number] Care Team Providers Care Retail Loan Officer Name Role Phone Unavailable Primary Care Provider Unavailabl e Encounter Details Date Type Department Care Team (Late st Contact Info) Description 04/09/2016 Scanned Document [facility] at [address] [facility] [address] [facility] [place] [address] Saravanan Kaiser MD [address] [place] [phone] Social History Tobacco Use Types Packs/Day Years [...]
--- OUTSIDE RECORDS SUMMARY | 2025-07-22 14:46 | XMS_ITS | Encounter Summary ---
Author Organization [facility] and [facility] Address [address] [place] [address] Care Team Providers Care Private Branch Exchange Operator Name Role Phone Unavailable Primary Care Provider Unavailabl e Reason for Referral * Imaging (Routine) - Closed Specialty Diagnoses / Procedures Referred By Gwen oliva Referred To Contact Diagnostic Radiology Procedures MRA Brain without IV Contrast Neurosurgery at [address] [place] [id number] Phone: tel: fax: Referral ID Status Reason Start Date Expiration Date Visits Re quested Visits Authorized [id number] Closed 10/31/2021 10/31/2022 1 1 * Imaging (Routine) - Closed Specialty Diagnoses / Procedures Referred By Gwen oliva Referred To Contact Diagnostic Radiology Procedures CT Head wo IV Contrast [facility] at [address] [place] [id number] Phone: tel: fax: Referral ID Status Reason Start Date Expiration Date Visits Re quested Visits Authorized [id number] Closed 10/31/2021 10/31/2022 1 1 Encounter Details Date Type Department Care Team (Late st Contact Info) Description 10/31/2021 Scanned Document [facility] at [address] [place] [phone] Freddie Davis . Social History Tobacco Use [...]
--- OUTSIDE RECORDS SUMMARY | 2025-07-22 14:46 | XMS_ITS | Encounter Summary ---
Author Organization [facility] and [facility] Address [address] [place] [address] Care Team Providers Care Systems Software Developer Name Role Phone Unavailable Primary Care Provider Unavailabl e Reason for Referral * Imaging (Routine) - Closed Specialty Diagnoses / Procedures Referred By Gwen oliva Referred To Contact Diagnostic Radiology Procedures CT Head wo IV Contrast Neurosurgery at [address] [address] Phone: tel: fax: Referral ID Status Reason Start Date Expiration Date Visits Re quested Visits Authorized [id number] Closed 11/07/2021 11/07/2022 1 1 Encounter Details Date Type Department Care Team (Late Contact Info) Description 11/07/2021 Scanned Document Neurosurgery at 800 [facility] [address] [place] [address] ProviderFreddie . Social History Tobacco Use Types Packs/Day [...]
--- OUTSIDE RECORDS SUMMARY | 2025-07-22 14:46 | XMS_ITS | Clinical Summary ---
Author Organization [facility] [address] [facility] Address [address] [place] [address] Phone Care Team Providers Care Manager Risk Management Name Role Phone Unavailable Primary Care Provider Unavailabl e Allergies No known active allergies Medications aspirin 81 mg EC delayed release tablet Take 1 tablet (81 mg total) by mouth daily. 06/03/2025 Active lisinopriL (PRINIVIL,ZESTRI L) 10 mg tablet Take 1 tablet (10 mg total) by mouth daily. 05/12/2025 Active Encounters Date Type Department Care Team Description 06/21/2025 Orders Only Neurosurgery at 800 [facility] [address] [place] [address] Lenora Urena APRN Intracranial aneurysm (HC CODE) (Primary Dx) 06/09/2025 4:00 PM EDT Telemedicine Neurosurgery at 800 [facility] [address] [place] [address] Lenora Urena APRN Intracranial aneurysm (HC CODE) (Primary Dx) from Last 3 Months Social History Tobacco Use Types Packs/Day Years Used Date Smoking Tobacco: Some Days Cigarettes Tobacco Cessation:Ready to Q uit: Not Asked; Counseling Given: Not Answered Alcohol Use Standard Drinks/Week Comments Yes 0 (1 standard drink = 0.6 oz pur e alcohol) Sex and Gender Information Value Date Recorded Sex Assigned at Male 03/20/2022 9:13 AM EDT Legal Sex Male 12:03 PM EST Gender Identity Male 03/20/2022 9:13 AM EDT Sexual Orientation Not on file Plan of Treatment Health Maintenance Due Date Last Done Comments HIV screening 1975 Hepatitis C screening 1980 Lipid disorder screening 2002 Colon cancer screening, Colonoscopy 2007 Diabetes screening 2007 Lung Cancer Screening 2012 Shingles vaccine (Shingrix) (1 of 2 - Shingrix (RZV) 2 Dose Standard Series) 2012 Pneumococcal Vaccine (50+ ye ars) (2 of 2 - PCV) 04/06/2017 04/06/2016 Influenza vaccine 05/20/2025 Covid-19 vaccine series (1 - 2023- season) 2025 Tetanus adult (Td q 10,TDAP once) 08/12/2030 020 RSV Immunization (1 - 1-dose 75+ series) 2037 Pneumococcal Vaccine (2 - 49 years) Discontinued 04/06/2016 Meningococcal B Vaccine Aged Out No l onger eligible based on patient's age to complete this topic Meningococcal Vaccine Aged Out No jo ivan eligible based on patient's age to complete this topic
--- OUTSIDE RECORDS SUMMARY | 2025-07-22 14:46 | XMS_ITS | Encounter Summary ---
Author Organization [facility] and [facility] Address [address] [place] [phone] Care Team Providers Care Assistant Food Service Manager Name Role Phone Unavailable Primary Care Provider Unavailabl e Reason for Visit * Reason Comments Appointment [facility] Encounter Details Date Type Department Care Team ([facility] Contact Info) Description 11/01/2021 Telephone [facility] at [address] [facility] [address] [place] [address] Saravanan Kaiser MD [address] [place] [phone] Appointment ([facility]) Social History Tobacco Use Types Packs/Day Years [...] at 11/01/2021 8:32 AM EST ----- Regarding: [place]/MRA and TH Provider: Awilda Expected date: next available Type of appointment: follow up, Tele-health Imaging to schedule prior: MRA brain (TO be done 1 week prior) Imaging needed from [facility] (imaging to be pushed/reports scanned): n/a Appointment Notes (should be copied into the appointment notes): re-establish care after stent-coiling at [facility] documented in this encounter Plan of Treatment Not on file documented as of this encounter Visit Diagnoses Not on filedocumented in this encounter
--- OUTSIDE RECORDS SUMMARY | 2025-07-22 14:46 | XMS_ITS | Encounter Summary ---
Author Organization [facility] and [facility] Address [address] [place] [phone] Care Team Providers Care Miller Head Name Role Phone Unavailable Primary Care Provider Unavailabl e Reason for Visit * Reason Comments Triage Encounter Details Date Type Department Care Team ([facility] st Contact Info) Description 07/24/2023 Telephone [facility] at [address] [phone] Saravanan Kaiser MD [address] [place] [phone] Triage Social History Tobacco Use Types [...] consult with her since she is in [place] and that the pt is in [place], [place]. She states that he told her the insurance would cover visit because he is the only specialist in aneurysm in [facility] located in [place]. Checked with Health Care / [facility] [employer] Faby who is checking with Alma Rosa. * Telephone Encounter - Esthela Samson - 07/24/2023 9:58 AM EDT Rebecca called stating that her dad is currently admitted at [facility] for GI bleeding. She asked if you can give her a call back because they are trying to stop his Asprin. Please advise Ms. Fernandez's Number: [phone] documented in this encounter Plan of Treatment Not on file documented as of this encounter Visit Diagnoses Not on filedocumented in this encounter
[2025-07-22 15:18] VITALS: BP 132/70; PULSE 78; RESP 18; TEMP 36.4; O2SAT 98; BMI 30.1
--- NOTE | 2025-07-22 15:18 | A.OFFPC_ITS ---
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 Accompanied by: Self / Same As Patient Allergies No Known Allergies Allergy (Verified 07/22/25 15:43) Medication List - Last Reconciled 07/25/25 by JEFFERY Carey albuterol sulfate 2.5 mg (3 mL) inhalation Q4-6H PRN albuterol sulfate 90 mcg/actuation 2 puffs inhalation Q4-6H PRN aspirin (Adult Low Dose Aspirin) 81 mg PO DAILY azithromycin For 250 mg dose pack: take 500 mg today (day 1), then 250 mg for 4 days (days 2-5) benzonatate 100 mg PO BID PRN docusate sodium (Colace) 100 mg PO BID ferrous sulfate 324 mg PO BID gabapentin 100 mg PO TID hydrocodone-acetaminophen 5-325 mg 1 tab PO Q6H PRN lidocaine 5% 1 patch topical DAILY lisinopril 10 mg PO DAILY [Medial 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 Nebulizer Replacement kit) As directed sennosides (senna) 17.2 mg (2 x 8.6 mg) PO BEDTIME PRN Tobacco use date assessed: 07/22/25 Dental Screening Dental Screen Date: 07/22/25 Did you have a dental visit in the last 12 months?: No Did you have a dental problem in the last 6 months where you did not have access to dental care?: No Was dental information given to patient?: No HPI Complete disability form HPI Details The patient is a 64-year-old male presenting with arthritis of the left knee management concerns. The patient reports a history of arthritis, which has been causing significant discomfort, particularly in the left knee. He has been advised to undergo knee replacement surgery but is hesitant to proceed with surgical intervention. The patient has not seen an programming specialist recently and is considering alternative management options. Status post left knee subchondroplasty on 07/22/2022. Patient was given steroid injection in October of 2022 with good relief. It was prescribed to pull brace. Patient has done physical therapy and was recommended for surgery, but the patient does not want surgery at this time. The patient also has a history of asthma, which is currently well-controlled. The patient is looking for FMLA papers filled out. He is hoping to have 4 days a week off. Explained to the patient that he would have to be re-evaluated by Orthopedics to be considered for so many days off. The patient declines being referral back to Orthopedics. HPI Comments History of Present Illness Details The patient is a 64-year-old male presenting with arthritis of the left knee management concerns. The patient reports a history of arthritis, which has been causing significant discomfort, particularly in the left knee. He has been advised to undergo knee replacement surgery but is hesitant to proceed with surgical intervention. The patient has not seen an programming specialist recently and is considering alternative management options. Status post left knee subchondroplasty on 07/22/2022. Patient was given steroid injection in July of 2022 with good relief. It was prescribed to pull brace. Patient has done physical therapy and was recommended for surgery, but the patient does not want surgery at this time. The patient also has a history of asthma, which is currently well-controlled. The patient is looking for FMLA papers filled out. He is hoping to have 4 days a week off. Explained to the patient that he would have to be re-evaluated by Orthopedics to be considered for so many days off. The patient declines being referral back to Orthopedics. [facility] Medical History History of diverticulosis Seasonal allergies Osteoarthritis of left knee Tubular adenoma of colon Hypertension Hypercholesterolemia Obesity (BMI 30-39.9) Brain aneurysm Asthma Surgical History History of knee surgery Hx of brain surgery Hx of colonoscopy History of inguinal hernia repair Family History Father Esophageal cancer Mother Diabetes Hypertension Stroke Maternal Uncle Throat cancer Social History Household Members: Children Housing: Apartment Do you presently have visiting nurse or other home services: No Alcohol intake: current Alcohol intake frequency: a few times a month Patient Tobacco Use Status: Current someday Tobacco user Tobacco use type: Cigarette Cigarettes Per Day: 1 e-Cigarette/Vaping Use: Never Used Second Hand Smoke Exposure: Yes Substance Use Type: Marijuana Advance Directives Date on File: 07/25/23 service: No Current occupational status: employed Current occupation: rt handed Cognitive needs: No Hearing needs: No Vision needs: No Questionnaire Thrive Questionnaire Date Thrive assessed: 05/12/25 I am a: Patient What is your living situation today?: I have a steady place to live Within the past 12 months, did the food you bought not last and you didn't have the money to get more?: Never true Within the past 12 months, did you worry whether your food would run out before you got money to buy more?: Never true Do you have trouble paying for medicines?: No Do you have trouble getting transportation to medical appointments?: No Do you have trouble paying your heating and electricity bill?: No Do you have trouble taking care of your child, family member or friend?: No Do you have trouble with day-to-day activities such as bathing, preparing meals, shopping, managing finances, etc.?: No Are you currently unemployed and looking for a job?: No Are you interested in more education?: No Please select the resources that you would like help with: None Currently or been in a relationship where the following occur: No concerns reported THRIVE Score: 0 FELIX-7 AMB Questionnaire FELIX-7 Date FELIX - 7 assessed: 05/12/25 Source: Developed by Drs. Ernesto Ogden, Elise Sierra, Onofre Qiu and colleagues, with an educational rhona from [employer]. Review of Systems Const Denies body aches, Denies chills, Denies fever(s), Denies headache(s) and Denies poor appetite Eyes Reports no additional complaints ENT Denies dysphagia, Denies dizziness, Denies headache(s) and Denies odynophagia Card Denies chest pain, Denies syncope, Denies edema, Denies irregular heart rhythm, Denies lightheadedness and Denies dyspnea Resp Denies cough and Denies dyspnea GI Denies abdominal pain, Denies constipation, Denies dysphagia, Denies diarrhea, Denies nausea, Denies odynophagia and Denies vomiting Reports no additional complaints Musc Reports arthralgias (Left knee-knee brace in place) Skin/Breast Reports system reviewed and no additional complaints, except as documented Neuro Denies dizziness, Denies syncope and Denies headache(s) Psych Reports no additional complaints Physical exam (Primary Care) Vital Signs: Last Vital Signs Temp 97.5 F 07/22/25 15:18 Pulse 78 07/22/25 15:18 Resp 18 07/22/25 15:18 BP 132/70 07/22/25 15:18 Pulse Ox 98 07/22/25 15:18 Oxygen Delivery Method Room Air 07/22/25 15:18 BMI result Body Mass Index 30.1 Tobacco/Smoking Status: Tobacco use Status Tobacco use date assessed 07/22/25 07/22/25 15:29 Patient Tobacco Use Status Current someday Tobacco 07/22/25 15:29 Tobacco use type Cigarette 07/22/25 15:29 e-Cigarette/Vaping Use Never Used 07/22/25 15:29 Thrive Assessment: Date of Thrive Assessment Date Thrive assessed 05/12/25 07/22/25 15:29 Currently or been in a relationship where the following occur: No concerns reported Const General: cooperative, healthy appearing, comfortable and no acute distress Orientation/consciousness: patient oriented x3 HENMT Head: Yes normocephalic Ears: hearing grossly normal bilaterally General nose exam: Normal external nose present Eyes General: appearance normal, both eyes and all related structures Conjunctivae: conjunctivae normal Neck Neck: Yes full ROM and Yes no lymphadenopathy Resp Effort & Inspection: normal respiratory effort Auscultation: clear to auscultation bilaterally, no crackles, no rales, no rhonchi and no wheezes Cardio Rate: regular rate Rhythm: regular rhythm General: Yes no CVA tenderness Back/Spine/Pelvis Back: no CVA tenderness Thoracic/Lumbar Spine: No lumbar spinal tenderness Skin General skin exam: no rashes or lesions noted Neuro General: patient oriented x3 Gait exam (Neuro): Normal gait present Extrem General: Yes normal to inspection, Yes full ROM and No edema Left lower extremity: knee Details: no tenderness and no swelling Psych Affect: normal affect Attitude: cooperative Insight: Good insight present (Psych) Judgement: Good judgement present (Psych) Coding Level of Care Code Est Pt Level 3 (35335) Diagnoses Left knee pain, unspecified chronicity M25.562 Chronicity: unspecified Time Spent (min) 31 Assessment & Plan Assessment & Plan (1) Left knee pain: Comment: Left knee surgery December 2021 Code(s): M25.562 - Pain in left knee Category: Medical Qualifiers: Chronicity: unspecified Qualified Code(s): M25.562 - Pain in left knee Plan: Status post left knee subchondroplasty on 07/22/2022. Patient was given steroid injection in July of 2022 with good relief. It was prescribed to pull brace. Patient has done physical therapy and was recommended for surgery, but the patient does not want surgery at this time. He patient is requesting for [facility] paperwork to be filled out. The is requesting 4 days/week off. Explained to the patient that he would have to be revaluated by orthopedics to get that many days off. Discussed with the patient that he could only get 4 days a month at this time.
== END 2025-07-22 16:12 | disposition home or self-care (01) ==
LOC: HO.HMCH 14:43
DX: M25.562 Pain in left knee (principal)